=== PATIENT | female | born 1950 | race Caucasian/White ===

== ENCOUNTER → 2020-05-21 09:57 | Outpatient (CLI) | payer OTHER, SELFPAY ==
[2020-05-21 11:08] LABS: COVID19 -Nasal RAPID Negative (Negative)
== END ==
PROVIDERS: Visit Provider Physician Assistant
DX: Z20.822 Contact with and (suspected) exposure to COVID-19 (principal)
CPT/HCPCS: 87635

== ENCOUNTER 2020-05-23 06:08 | Day surgery (SDC) | payer OTHER, SELFPAY ==
[2020-05-23] VITALS (16 sets, daily range): BP systolic 89–127; BP diastolic 49–80; PULSE 53–83; RESP 10–16; TEMP 36.2–37.4; O2SAT 90–98; BMI 27.8
--- NOTE | 2020-05-23 06:00 | DI.RAD.S_ITS ---
PROCEDURE: XR KNEE RT 1TO2V INDICATIONS: post op films TECHNIQUE: 2 view(s) of the knee acquired. COMPARISON: None. FINDINGS: Bones: Patient is status post knee joint arthroplasty. Hardware components are in expected positions. Visualized bony structures are intact. Soft tissues: Overlying postoperative changes are noted. IMPRESSION: Expected postoperative appearance Dictated by: Bryson Sanchez M.D. on 05/23/2020 at 11:44 Approved by: Bryson Sanchez M.D. on 05/23/2020 at 11:45
[2020-05-23] MEDS: MELOXICAM 7.5 MG TABLET 15 MG PO (06:55)
[2020-05-23] MEDS: PREGABALIN 75 MG CAPSULE PO (06:56)
[2020-05-23] MEDS: ACETAMINOPHEN 325 MG TABLET 975 MG PO (06:56)
[2020-05-23] MEDS: LACTATED RINGERS 1,000 ML 42 ML IV ×2 (07:17→09:57)
--- NOTE | 2020-05-23 07:45 | PM.PREOP ---
Pre-operative Note COVID-19 COVID-19 status: Negative Result date/Date tested (Pos, Neg/Pending): 05/21/20 Interval Note History & Physical reviewed/Exam performed by Physician: Yes Changes to H&P: No H&P completed within 30 days and has changed as indicated here:: Plan for right TKA
[2020-05-23] MEDS: CEFAZOLIN 2 GM/100 ML FROZ.PIGGY IV ×3 (07:59→23:47)
[2020-05-23] MEDS: TRANEXAMIC ACID 1,000 MG VIAL 1000 MG INJ ×2 (08:09→09:55)
--- NOTE | 2020-05-23 08:25 | SUR.OPER ---
Supine on padded OR bed. Pillow under head, arms secured on padded armboards <90 degree abduction. Safety belt across torso. Non-operative leg secured with tape over blanket over lower leg. Operative leg positioned per Dr. Newamn on foam knee positioner . Foam padded brace at thigh of operative leg.
[2020-05-23] MEDS: ROPIVACAINE 0.5% PF 5 MG/ML 20ML VIAL 60 ML INJ (08:41)
[2020-05-23] MEDS: MORPHINE 4 MG/ML INJ INJ (08:41)
[2020-05-23] MEDS: KETOROLAC 30 MG/ML VIAL IV (08:41)
--- NOTE | 2020-05-23 10:03 | PM.OP.1 ---
Operative Date/Time/Diagnoses Date of procedure: 05/23/20 Time of procedure: 10:03 Pre-op diagnosis: right knee OA Post-op diagnosis: same Procedure & Clinicians Procedure: right TKA Same procedure as scheduled: Yes Indications: right knee OA resistant to further conservative care Surgeon: Vel Newman Electronic Field Service Engineer: Roman Ramirez Anesthesia Type: Spinal Operative Notes Findings: right knee OA with varus deformity Closure Type: primary Specimen(s): none sent Prosthetic devices, grafts, tissues, transplants, or devices: Prather [employer]hew Journey 2 size 5 right CR femur Size 3 right Journey tibial base plate Size 3-4 right 9 mm thick deep dish polyethylene 29 mm oval patella button Estimated Blood Loss (mL): 200 Tourniquet time (min): 70 Procedure in detail: Patient was met in the preoperative holding area where the site and side of surgery were marked by . Informed consent had been reviewed and signed in clinic but was also reviewed the preoperative holding area and all last minute questions were answered. Patient was then brought back in the operating room where she received a spinal anesthetic. She was then placed supine on the operating room bed. A nonsterile tourniquet was then placed on the right thigh and the right lower extremity was then prepped and draped normal sterile fashion. A surgical time-out was performed verifying surgery as well as the name of the patient. An Esmarch was then used to exsanguinate the right lower extremity and the tourniquet was inflated to 250 mm of mercury. A linear incision over the right knee was then made in the skin using 10. Blade. A new 10. Blade was then used to elevate medial and lateral flaps. Medial parapatellar arthrotomy was then marked and then a 10 blade was used to make the medial parapatellar arthrotomy. A large medial peel was then performed. Hoffa's fat pad was then removed as well as the lateral meniscus. Jewell's line was then marked. The ACL remnant was then removed. Drill was then used to enter the femoral canal on the tibial canal the intramedullary roni for the femur was then placed and the right-sided femoral jig was then placed. This was cut in the neutral slot. The intramedullary roni was then placed inside the tibial canal and a skim cut underneath the sclerotic bone on the medial side was then performed. This point the knee was brought into full extension the extension gap was then placed was noted to was significantly tight on the medial side and lateral side. A more extensive medial peel was then performed. This did not fully correct the imbalance. A reduction osteotomy was then performed on the medial tibial plateau. This corrected the imbalance. I then returned my attention to the femoral side he has a gap corporate real estate specialist to taj our rotation. This was then compared to Whitesides line and was externally rotated. I then used a sizing guide and sized to a size 5 or 6 on the femur. We initially pin for size 6 and cut and then felt like we could downsize to a size 5 which would have a better medial-lateral sizing with out significant overhang. Then downsized to a size 5 was able to cut the anterior femur without notching. The rest of the 5 in 1 cuts were then performed. A size 5 5 right CR trial was then placed and a saw was used to clear the notch. We then trialed with the size 3 tibia with a 9 mm CR. I used floating technique to taj my external rotation for the tibial component. Knee was able to get into full extension and full as having good flexion and there was stability in flexion and mid flexion and flexion. I then freehand cut the patella and sized to a size 29. This was then drilled for and a patellar button was placed. The knee was brought through range of motion without patellar liftoff. The bones were then removed local anesthetic was then infiltrated into back of the knee as well as the periarticular soft tissues. We then drilled and punched for the tibial base plate and I placed bone fragments within the canal to prevent extrusion of the cement down the tibial canal. I then placed the bone with the femur as well. Pulse lavage was then used to thoroughly irrigate the knee as well as the cut surface of the bone and the bony cut surfaces were thoroughly dried. Cement was mixed and cement was then finger packed into the keel hole as well as the tibial cut surface cement was placed on the backside of the tibial base plate and then this was placed. This was then malleted into place and excess cement was removed. Cement was then finger packed on the cut surfaces of the femur with exception of the posterior femoral cut cement was placed on the feet of the femoral component this was malleted into place and excess cement was removed. A trial 9 mm CR was then placed the knee was brought into full extension. Cement was then placed on the cut surface of the patella as well as between the pegs in the patellar button this was clamped in place and excess cement was removed. Betadine solution was then placed in the wound and tourniquet was let down. After several minutes the Betadine solution was lavaged with copious normal saline. Cement was allowed to fully cure. Hemostasis was then achieved using electrocautery thoroughly irrigated the knee looking for any bony fragments or cement fragments. I then placed a 9 mm thick size 3 for right deep dish polyethylene verifying that the medial lateral tabs were well engaged. The knee was then irrigated final time and the medial parapatellar arthrotomy was closed using 1. Vicryl in interrupted fashion followed by Quill running suture followed by 1. Vicryl in the fat layer and a running suture followed by 2 Vicryl in the subcutaneous layer followed by 3-0 Stratafix Dermabond and Aquacel dressing. Complications: none Post-operative Condition: stable Disposition: PACU Plan for aftercare: 24 hours post-op abx, WBAT RLE, ASA 81mg BID for DVT prophylaxis
[2020-05-23] MEDS: ONDANSETRON 4 MG/2 ML INJ IV ×2 (10:41→12:47)
[2020-05-23] MEDS: OXYCODONE IR 5 MG TABLET PO ×3 (10:41→21:46)
[2020-05-23] MEDS: LACTATED RINGERS 1,000 ML 100 ML IV (12:49)
--- NOTE | 2020-05-23 13:32 | PC.NURSE ---
Addendum entered by Ada Cedillo R.N. 05/23/20 14:35: Patient had 100cc of emesis most recently, she is sipping on a gingerale and visiting with her . Original Note: Assess- Patient has an aquacel dressing to her r.knee with eric wrap that is cdi. She denies pain but has had 2 emesis each 200cc of liquid. She is npo at this time until SET starts working for her nausea. She is on LR at 100cc/hr and tolerating well. in room, cms wnl and pt denies any numbness or tingling. She has feeling to r.knee and feet. Patient had a spinal and has an epideral site to lower back that is open to air and dry.
[2020-05-23 14:47] LABS: Add Manual Diff / Slide Review NO; Basophils Absolute Auto 0 /uL (0-100); Basophils Percent Auto 0.1 % (0-2); Eosinophils Absolute Auto 0 /uL (0-450); Hemoglobin 13.7 g/dL (12.0-16.0); Lymphocytes Absolute Auto 900 /uL (1100-4500); Lymphocytes Percent Auto 7.4 % (25-40); Mean Corpuscular HGB Conc 32.7 % (30-36); Mean Corpuscular Hemoglobin 28.2 PG (26-34); Mean Corpuscular Volume 86.2 fL (80-100); Monocytes Absolute Auto 200 /uL (0-900); Monocytes Percent Auto 1.8 % (3-14); Neutrophils Absolute Auto 10900 /uL (1500-7000); Neutrophils Percent Auto 90.7 % (50-75); Platelet Count 347 X10^3/uL (150-400); Red Blood Cell Count 4.87 X10^6/uL (4.0-5.2); Red Cell Distribution Width 14.2 % (11.6-14.8)
--- NOTE | 2020-05-23 14:50 | PT.IIE ---
Current Diagnoses Unilateral primary osteoarthritis, right knee (05/23/20) Surgery Performed Operation Date: 05/23/20 07:45 Actual Procedures p Total Knee Arthroplasty(Right) - Vel Newman MD Surgical History (Last Updated 05/21/20 @ 13:25 by Dagmar Reda, RN) History of arthroscopy of knee History of bilateral mastectomy (~2017) History of blepharoplasty (~2013) History of partial mastectomy of both breasts S/P tendon repair Medical History (Last Updated 05/21/20 @ 13:25 by Dagmar Read, RN) History of breast cancer Prehypertension Primary osteoarthritis of hands, bilateral Primary osteoarthritis of knees, bilateral Wrist fracture, left Physical Therapy Inpatient Evaluation/Re-Eval M1 PT/OT-IP Prior Functional Status Start: 05/23/20 15:44 Freq: NEEDED Status: Active Protocol: Document 05/23/20 14:50 AB (Rec: 05/23/20 15:59 AB [id number]) Medical Review Prior Functional Status Medical History Reviewed Yes Communication able to make needs known Mobility and Gait pt stated that she is independent with all mobilities and ambulation without AD indoors but uses a walking stick for outdoor mobility Social History Household Members spouse Living Arrangements House Number of Floors (Floors) One Floor Number of Stairs To Enter/Railing? no steps to enter Home Environment High Toilet,Walk in Shower,Tub /Shower,Built-In Shower Seat Home Equipment Front Wheel Walker,Hand Held Shower,Grab Bars Near Toilet, Grab Bars In Shower M2 PT-IP Current Condition Start: 05/23/20 15:44 Freq: NEEDED Status: Active Protocol: Document 05/23/20 14:50 AB (Rec: 05/23/20 15:59 AB [id number]) Physical Therapy Current Condition Current Condition Evaluation Date 05/23/20 Treatment Diagnosis s/p R TKA; difficulty in walking Onset Date 05/23/20 Weight Bearing Status Weight Bearing Status Weight Bear as Tolerated Allowed Weight Bearing Amount (enter % RLE WBAT or #) (%) M3 PT-IP Subjective Start: 05/23/20 15:44 Freq: NEEDED Status: Active Protocol: Document 05/23/20 14:50 AB (Rec: 05/23/20 15:59 AB [id number]) Subjective Physical Therapy Visit Type Type Initial Evaluation Visit Start Time 14:50 Visit Stop Time 15:30 Total Visit Minutes 40 Number of HANDWRITING EXPERT Visits 0 Physical Therapy Visit Comments Patient Comments c/o nausea Therapy Pain Assessment Pain When Pain Assessed At Rest Pain Present Pain Present Pain Reported Location Right Knee Intensity 4 Scale Used Numeric (0 - 10) Pain Management Techniques Apply Cold,Distraction, Modification of Treatment,Re- positioning,Timing of Activity with Medications M4 PT-IP Mobility and Gait Start: 05/23/20 15:44 Freq: NEEDED Status: Active Protocol: Document 05/23/20 14:50 AB (Rec: 05/23/20 15:59 AB [id number]) PT-Bed Mobility Assessment Supine to Sit Supine to Sit Standby Assistance PT-Transfer Assessment Sit to and From Stand Sit to and from Stand Contact Guard Assistance, Minimal Assistance,1 Person Assistance,Use of Upper Extremities Equipment Transfer Assistive Device Gait Belt,Front Wheeled Walker Orthotic/Prosthetic Devices or Brace: No Transfers Transfer Destination Toilet Transfer Technique ambulated using FWW Transfer Ability Level of Assist Contact Guard Assistance, Minimal Assistance,1 Person Assistance,Use of Upper Extremities Comments Mobility Comments BP in supine: 119/75. pt initially did not have O2 on when PT checked. O2 sat on room air 77%. pt stated that she took it off. put O2 back on and pt is at 1.5L/min. O2 sat increase to 97% after a few seconds. completed heel slides prior to mobility. completed supine to sit SBA. c/o lightheadedness and nausea . BP in sitting position: 144 /92. completed sit to stand CGA to min A and cues and ambulated to the toilet using FWW initially with min A. completed sit to stand from the toilet min A and ambulated to the chair CGA. pt agreed to sit up on chair. positioned on chair. BP checked: 135/67. call light and table placed within reach. ice pack provided. informed NAC regarding level of assistance. Gait Assessment Gait Gait Assistance Required: Contact Guard Assist,Minimum Assistance Distance (Feet) 10 Able to Maintain Weight Bearing Status Yes During Gait Assistive Devices Assistive Device Gait Belt,Front Wheeled Walker Orthotic/Prosthetic Devices or Brace: No Gait Deviations General Gait Pattern Antalgic,Decreased Stride Length,Decreased Feet Clearance Factors Limiting Gait Function Factors Limiting Gait Function Decreased Activity Tolerance, Decreased Strength,Limited Range of Motion,Pain,Poor Balance,Poor Safety Awareness, Respiratory Distress Comments Gait Comments refer to mobility section for details PT-Balance Assessment Sitting Balance and Reactions Static Sitting Balance Ability Good Dynamic Sitting Balance Ability Good Standing Balance and Reactions Static Standing Balance Ability Fair Dynamic Standing Balance Ability Fair Device Used FWW M5 PT-IP Objective Assessments Start: 05/23/20 15:44 Freq: NEEDED Status: Active Protocol: Document 05/23/20 14:50 AB (Rec: 05/23/20 15:59 AB [id number]) Orientation Orientation/Cognition Level of Alertness Alert Orientation Name,Place,Situation Language Function Ability Hard of Hearing Safety Awareness Decreased Safety Awareness Gross Range of Motion Lower Extremity ROM Assessment Right Impaired Impairments R knee flexion: ~60 deg Strength Lower Extremity Strength Assessment Right Impaired Hip 4-/5 Knee 3+/5 Coordination Assessment Gross Coordination Gross Coordination WNL Sensation Assessment Sensation Gross Sensation WNL Muscle Tone Muscle Tone WNL Yes M6 PT-IP Treatment Start: 05/23/20 15:44 Freq: NEEDED Status: Active Protocol: Document 05/23/20 14:50 AB (Rec: 05/23/20 15:59 AB [id number]) Physical Therapy Treatment Education Education Provided Precautions,Weight Bearing Status,Post-Op Packet,Safety M7 PT-IP Assessment and Plan Start: 05/23/20 15:44 Freq: NEEDED Status: Active Protocol: Document 05/23/20 14:50 AB (Rec: 05/23/20 15:59 AB [id number]) PT Summary Assessment and Plan Potential Rehabilitation Potential Good Status of Condition at Evaluation Evolving Summary Impairments Pain,ROM,Strength,Balance, Coordination,Sensation,Bed Mobility,Transfers,Gait, Activity Tolerance Assessment Summary pt requiring CGA to min A with mobility and plans to go home with spouse to assist her. will conduct caregiver training when appropriate but pt will likely progress during hospital stay. will continue to assess progress. Goals Bed Mobility Goal Independent Transfer Goal Independent,Front Wheeled Walker Gait Goal Independent,Front Wheel Walker Gait Distance 150 Days to Meet Goals 3 Frequency of Treatment Frequency Of Treatment Twice a Day Treatment Plan Physical Therapy Treatment Plan Bed Mobility Training,Transfer Training,Gait Training, Therapeutic Exercise,Balance Retraining,Post Op Education, Discharge Planning,Hot or Cold Pack,Neuromuscular Re-ed, Coordination Retraining,Manual Therapy Recommendations To Nursing Amount of Assist Needed 1 Person Assist Discharge Recommendations PT Discharge Recommendations Home with Assistance, Outpatient PT Transportation Needs at Discharge Private Vehicle
[2020-05-23] MEDS: METOCLOPRAMIDE 10 MG/2 ML INJ 5 MG IV (15:31)
[2020-05-23] MEDS: LORATADINE 10 MG TABLET PO (18:39)
[2020-05-23] MEDS: GABAPENTIN 300 MG CAPSULE PO (21:43)
[2020-05-23] MEDS: DOCUSATE 100 MG CAPSULE PO (21:43)
[2020-05-23] MEDS: ACETAMINOPHEN 325 MG TABLET 650 MG PO (21:43)
[2020-05-23] MEDS: ASPIRIN EC 81 MG TABLET PO (21:44)
--- NOTE | 2020-05-24 00:05 | PC.NURSE ---
Addendum entered by Indu Hawk R.N. 05/24/20 05:48: Up to bathroom with walker and 1 assist. After being up to bathroom states pain went from 0/10 to 6/10; medicated with Oxycodone. Given I.S. and instructed in use; patient able to get to 1500 Addendum entered by Indu Hawk R.N. 05/24/20 02:27: Complaining of 6/10 right knee pain; medicated with Oxycodone. Original Note: patient is alert and oriented. Breath sounds diminished but CTA with sat of 94% on oxygen at 1L/min per NC; reportedly desats when asleep so will O2 on for now. HRR. Denies nausea. BT hypoactive but states she has passed flatus. Denies dysuria with urination. Able to move self in bed. Up earlier with walker and 1 assist but is weak on right LE. Aquacel dressing covered with eric wrap is CDI. States pain is 4/10 and tolerable; has ice to knee. Does have some tingling in right foot and decreased ROM in right LE otherwise CMS is intact. Wearing bilateral calf SCD's. Fall risk score is moderate and bed alarm is activated.
[2020-05-24] MEDS: OXYCODONE IR 5 MG TABLET PO ×4 (02:25→11:34)
[2020-05-24 05:30] VITALS: BP 124/76; PULSE 79; RESP 16; TEMP 37.3; O2SAT 99
[2020-05-24 06:53] LABS: Hematocrit 36.2 % (36-46); Hemoglobin 11.9 g/dL (12.0-16.0)
[2020-05-24 07:45] VITALS: BP 113/66; PULSE 88; RESP 16; TEMP 37.4; O2SAT 97
[2020-05-24] MEDS: ASPIRIN EC 81 MG TABLET PO (08:20)
[2020-05-24] MEDS: ACETAMINOPHEN 325 MG TABLET 650 MG PO (08:20)
[2020-05-24] MEDS: GABAPENTIN 300 MG CAPSULE PO (08:21)
[2020-05-24] MEDS: TRIAMTERENE/HCTZ 37.5/25 TABLET 1 CAP PO (08:21)
[2020-05-24] MEDS: DOCUSATE 100 MG CAPSULE PO (08:21)
--- NOTE | 2020-05-24 09:39 | P.PN_ITS ---
Subjective Subjective Date Patient Seen: 05/24/20 Time Patient Seen: 09:39 Interval history: POD #1 s/p right TKA with Dr. Newman. Patient's pain is well controlled with Oxycodone. She has not been up with PT yet. No complaints this AM. Exam Vital Signs (past 8 hours): - 05/24/20 05:30 05/24/20 07:45 Temperature 99.1 F 99.4 F Pulse Rate 79 88 Respiratory Rate 16 16 Blood Pressure 124/76 113/66 Pulse Oximetry 99 97 Oxygen Delivery Method Room Air Oxygen Flow Rate 1 Narrative Exam Narrative: Patient sitting up in bed in NAD. She is alert and oriented X3. Calves are soft, compressible, and nontender bilaterally. SILT throughout BLEs. She is able to actively dorisflex and plantarflex. DP 2+. Dressing on right knee is CDI. SCDs on and functioning. Objective Labs Result Diagrams: 05/24/20 06:31 Labs: Laboratory Results - last 24 hr 05/23/20 05/24/20 14:25 06:31 WBC 12.0 H RBC 4.87 Hgb 13.7 11.9 L Hct 42.0 36.2 MCV 86.2 MCH 28.2 MCHC 32.7 RDW 14.2 Plt Count 347 Neut % (Auto) 90.7 H Lymph % (Auto) 7.4 L Reeves % (Auto) 1.8 L Eos % (Auto) 0.0 L Baso % (Auto) 0.1 Neut # (Auto) 95841 H Lymph # (Auto) 900 L Reeves # (Auto) 200 Eos # (Auto) 0 Baso # (Auto) 0 PFSH Medical History History of breast cancer Prehypertension Primary osteoarthritis of hands, bilateral Primary osteoarthritis of knees, bilateral Wrist fracture, left Surgical History History of arthroscopy of knee History of bilateral mastectomy (~2017) History of blepharoplasty (~2013) History of partial mastectomy of both breasts S/P tendon repair Social History household members: spouse Smoking Status: Former smoker alcohol intake: current Assessment & Plan Post-op Postoperative Procedures: Procedures Operation Date: 05/23/20 07:45 Actual Procedures Side Surgeon p Total Knee Arthroplasty Right Vel Newman MD Patient will mobilize with PT today. Continue current pain control. Continue ASA for VTE prophylaxis. Patient will likely DC home today after therapy.
--- NOTE | 2020-05-24 10:46 | CM.DANOTE ---
This patient is a rachelle 70 yo pt. of [facility] here for RTK. She was sitting up in bed after finishing breakfast. A&O x 4. Pt. very much looking forward to going home today. C/O mild knee pain with ambulation but is still able to ambulate well enough to get around. Caregiver training is scheduled this morning per PT and patient is hoping to be discharged after lunch to care of . No barriers anticipated at discharge.
--- NOTE | 2020-05-24 11:48 | PT.IPTN ---
Current Diagnoses Unilateral primary osteoarthritis, right knee (05/23/20) Surgery Performed Operation Date: 05/23/20 07:45 Actual Procedures p Total Knee Arthroplasty(Right) - Vel Newman MD Physical Therapy Treatment Note M2 PT-IP Current Condition Start: 05/23/20 15:44 Freq: NEEDED Status: Active Protocol: Document 05/23/20 14:50 AB (Rec: 05/23/20 15:59 AB [id number]) Physical Therapy Current Condition Current Condition Evaluation Date 05/23/20 Treatment Diagnosis s/p R TKA; difficulty in walking Onset Date 05/23/20 Weight Bearing Status Weight Bearing Status Weight Bear as Tolerated Allowed Weight Bearing Amount (enter % RLE WBAT or #) (%) M3 PT-IP Subjective Start: 05/23/20 15:44 Freq: NEEDED Status: Active Protocol: Document 05/24/20 11:29 KS (Rec: 05/24/20 13:57 KS [id number]) Subjective Physical Therapy Visit Type Type Treatment Note Visit Start Time 11:29 Visit Stop Time 11:48 Total Visit Minutes 19 Number of CRYSTAL SYR[employer] Visits 1 Physical Therapy Visit Comments Patient Comments Pts present during treatment. Therapy Pain Assessment Pain When Pain Assessed After Treatment Pain Present Pain Present Pain Reported Location Right Knee Intensity 7 Scale Used Numeric (0 - 10) Pain Management Techniques Apply Cold,Elevation, Modification of Treatment,Re- positioning M4 PT-IP Mobility and Gait Start: 05/23/20 15:44 Freq: NEEDED Status: Active Protocol: Document 05/24/20 11:29 KS (Rec: 05/24/20 13:57 KS [id number]) PT-Bed Mobility Assessment Supine to Sit Supine to Sit Standby Assistance Sit to Supine Sit to Supine Standby Assistance Scooting Scooting to Edge of Bed Standby Assistance Scooting Up and Down in Bed Standby Assistance PT-Transfer Assessment Sit to and From Stand Sit to and from Stand Standby Assistance,Use of Upper Extremities Equipment Transfer Assistive Device Gait Belt,Front Wheeled Walker Orthotic/Prosthetic Devices or Brace: No Transfers Transfer Destination Bed Transfer Technique ambulated using FWW Transfer Ability Level of Assist Standby Assistance Comments Mobility Comments Pt in bed upon arrival from therapy. SBA for sup<>sit and scooting EOB w/ HOB flat. Pt then sit<>stand w/ FWW SBA w/ cues for hand placement. Pt then ambulated ~30 ft in room w/ FWW, O2 >85% but patient denied SOB. Pt then returned to bed, O2 increased to 94% on RA. RN notified. SBA for sit< >supine and repositioning in bed. Reveiwed LE strengthening exercises, pt confirmed no stairs and begins outpatient rehab on Jun 04. Gait Assessment Gait Gait Assistance Required: Standby Assistance,1 Person Assist Distance (Feet) 30 Able to Maintain Weight Bearing Status Yes During Gait Assistive Devices Assistive Device Gait Belt,Front Wheeled Walker Orthotic/Prosthetic Devices or Brace: No Gait Deviations General Gait Pattern Antalgic,Decreased Stride Length,Decreased Feet Clearance Factors Limiting Gait Function Factors Limiting Gait Function Decreased Activity Tolerance, Decreased Strength,Limited Range of Motion,Pain,Poor Balance,Poor Safety Awareness, Respiratory Distress Comments Gait Comments Pt ambulated ~30 ft w/ 1x rest break, O2 >85%, pt denied SOB , RN notified. Stair Climbing Assessment Comments Stair Climbing Comments no stairs at home PT-Balance Assessment Sitting Balance and Reactions Static Sitting Balance Ability Good Dynamic Sitting Balance Ability Good Standing Balance and Reactions Static Standing Balance Ability Fair Dynamic Standing Balance Ability Fair Device Used FWW M5 PT-IP Objective Assessments Start: 05/23/20 15:44 Freq: NEEDED Status: Active Protocol: Document 05/23/20 14:50 AB (Rec: 05/23/20 15:59 AB [id number]) Orientation Orientation/Cognition Level of Alertness Alert Orientation Name,Place,Situation Language Function Ability Hard of Hearing Safety Awareness Decreased Safety Awareness Gross Range of Motion Lower Extremity ROM Assessment Right Impaired Impairments R knee flexion: ~60 deg Strength Lower Extremity Strength Assessment Right Impaired Hip 4-/5 Knee 3+/5 Coordination Assessment Gross Coordination Gross Coordination WNL Sensation Assessment Sensation Gross Sensation WNL Muscle Tone Muscle Tone WNL Yes M6 PT-IP Treatment Start: 05/23/20 15:44 Freq: NEEDED Status: Active Protocol: Document 05/24/20 11:29 KS (Rec: 05/24/20 13:57 KS [id number]) Physical Therapy Treatment Exercises Exercises Ankle Pumps,Gluteal Sets,Quad Sets,Heel Slides Education Education Provided Precautions,Weight Bearing Status,Post-Op Packet,Safety Other Treatments Other Treatment Performed Encouraged pt to complete exercises at home, walk frequently to improve O2 and gait. M7 PT-IP Assessment and Plan Start: 05/23/20 15:44 Freq: NEEDED Status: Active Protocol: Document 05/24/20 11:29 KS (Rec: 05/24/20 13:57 KS [id number]) PT Summary Assessment and Plan Potential Rehabilitation Potential Good Status of Condition at Evaluation Evolving Summary Impairments Pain,ROM,Strength,Balance, Coordination,Sensation,Bed Mobility,Transfers,Gait, Activity Tolerance Progress Towards Goals Progressing Toward Goals Assessment Summary Pt SBA for bed mobility, transfers, and ambulation. Pt ambulated ~30 ft around room w / SBA and FWW on RA w/ O2 >85% . O2 increased to 94% in sitting. RN notified. Pt will benefit from outpatient rehab to improve strenght, ROM, and tolerance for activity which she has set to begin on Jun 04. Goals Bed Mobility Goal Independent Transfer Goal Independent,Front Wheeled Walker Gait Goal Independent,Front Wheel Walker Gait Distance 150 Days to Meet Goals 3 Frequency of Treatment Frequency Of Treatment Twice a Day Treatment Plan Physical Therapy Treatment Plan Bed Mobility Training,Transfer Training,Gait Training, Therapeutic Exercise,Balance Retraining,Post Op Education, Discharge Planning,Hot or Cold Pack,Neuromuscular Re-ed, Coordination Retraining,Manual Therapy Recommendations To Nursing Amount of Assist Needed 1 Person Assist Discharge Recommendations PT Discharge Recommendations Home with Assistance, Outpatient PT Transportation Needs at Discharge Private Vehicle
--- NOTE | 2020-05-24 12:15 | PC.NURSE ---
c/m/s to RLE Positive; CRYSTAL wrap intact; SBA to bathroom with fww O2 RA=95%, per PT, patient desat to upper 80's with activity; pt encouraged to keep using IS, cough/deep breath; pain mild to moderate; d/c instructions for f/u appt, rx medications, s/sx infection, and IS
== END 2020-05-24 13:00 | disposition home or self-care (01) ==
LOC: OR 06:13 → AC 06:16
PROVIDERS: PCP Family Medicine; Referring Provider Family Medicine; Visit Provider Orthopaedic Surgery Adult Reconstructive Orthopaedic Surgery
PROC: 0SRC0JZ Replacement of Right Knee Joint with Synthetic Substitute, Open Approach (ICD-10-PCS; CPT 27447; principal; 2020-05-23 07:45)
DX: M17.11 Unilateral primary osteoarthritis, right knee (principal); I10 Essential (primary) hypertension; M85.80 Other specified disorders of bone density and structure, unspecified site
CPT/HCPCS: 27447; 36415; 73560; 85014; 85018; 85025; 94760; 97161; 97530; C1776; J0690; J1100; J1885; J2270; J2274; J2405; J2704; J2765

== ENCOUNTER 2020-06-04 16:34 | Inpatient (IN) | payer OTHER, SELFPAY ==
[2020-05-23 12:51] VITALS: BMI 27.8
[2020-06-04] VITALS (19 sets, daily range): BP systolic 102–142; BP diastolic 56–72; PULSE 78–92; RESP 11–32; TEMP 36.5–37.5; O2SAT 94–100; BMI 28.3
--- NOTE | 2020-06-04 16:44 | DI.RAD.S_ITS ---
PROCEDURE: XR CHEST 1V INDICATIONS: Chest pain TECHNIQUE: One view of the chest was acquired. COMPARISON: None. FINDINGS: Surgical changes and devices: Bilateral breast surgical clips. Lungs and pleura: Lungs are clear. No pleural effusions or pneumothorax. Mediastinum: Mediastinal contours appear normal. Heart size is normal. Bones and chest wall: No suspicious bony lesions. Overlying soft tissues appear unremarkable. IMPRESSION: No acute cardiopulmonary process demonstrated radiographically. Dictated by: Pete Salazar M.D. on 06/04/2020 at 16:15 Approved by: Pete Salazar M.D. on 06/04/2020 at 16:15
[2020-06-04 17:07] LABS: Mean Corpuscular HGB Conc 32.8 % (30-36); Mean Corpuscular Hemoglobin 28.2 PG (26-34); Platelet Count 583 X10^3/uL (150-400); Red Cell Distribution Width 15.1 % (11.6-14.8); White Blood Cell Count 14.2 X10^3/uL (4.5-11.0)
--- NOTE | 2020-06-04 17:09 | PC.NURSE ---
Pt is 10 days post op right knee replacement, states chest tightness and dizziness upon standing X 4 days. Suture site right knee is well aproximated and without erythema or discharge. Pt also reports right calf and right foot pain.
[2020-06-04 17:11] LABS: Prothrombin Time 11.8 SECONDS (10.1-12.7)
[2020-06-04 17:13] LABS: Add Manual Diff / Slide Review NO; Basophils Absolute Auto 100 /uL (0-100); Basophils Percent Auto 0.7 % (0-2); Eosinophils Absolute Auto 200 /uL (0-450); Eosinophils Percent Auto 1.5 % (2-4); Lymphocytes Absolute Auto 1700 /uL (1100-4500); Lymphocytes Percent Auto 11.8 % (25-40); Monocytes Absolute Auto 800 /uL (0-900); Monocytes Percent Auto 5.8 % (3-14); Neutrophils Absolute Auto 11300 /uL (1500-7000); Neutrophils Percent Auto 80.2 % (50-75)
[2020-06-04 17:14] LABS: PTT Partial Thromboplastin Tim 29 SECONDS (26.4-36.2)
[2020-06-04 17:16] LABS: Alanine Aminotransferase 46 IU/L (<35); Albumin 3.5 g/dL (3.5-5.0); Albumin Globulin Ratio 1.3 (1.0-2.8); Alkaline Phosphatase 120 U/L (38-126); Aspartate Aminotransferase 29 IU/L (14-36); BUN Creatinine Ratio 36.1 (6-22); Bilirubin Total 0.2 mg/dL (0.2-1.3); Blood Urea Nitrogen 26 mg/dL (7-17); Calcium 9.1 mg/dL (8.4-10.2); Carbon Dioxide 29 mmol/L (22-32); Chloride 95 mmol/L (98-107); Creatine Kinase 25 U/L (30-135); Estimated Glomerular Filt Rate > 60.0 mL/min (>60); Globulin 2.6 g/dL (1.7-4.1); Glucose 149 mg/dL (80-110); HEMOLYSIS < 15 (0-50); Hematocrit 19.8 % (36-46); Hemoglobin 6.5 g/dL (12.0-16.0); Lipase 49 U/L (23-300); Potassium 3.5 mmol/L (3.4-5.1); Sodium 128 mmol/L (137-145); Total Protein 6.1 g/dL (6.3-8.2)
[2020-06-04 17:28] LABS: NT-proBNP (BNP-Adult 18+) 496 pg/mL (<125); Troponin I < 0.012 ng/mL (0.01-0.034)
--- NOTE | 2020-06-04 17:36 | ED.CHESTPAIN ---
HPI - Chest Pain General Chief Complaint: Chest Pain Stated Complaint: RIGHT KNEE PAIN CHEST TIGHTNESS DIZZY NAUSEA Time Seen by Provider: 06/04/20 17:36 Source: patient Mode of arrival: Ambulatory Limitations: no limitations History of Present Illness HPI narrative: 70-year-old female who 10 days ago had a right total knee replacement. Does have a prior history of breast cancer. Had bilateral mastectomy and did not receive any chemotherapy afterwards. She is here for evaluation of knee pain, chest tightness, dizzy and some nausea. She does have right lower extremity swelling but she thinks that this is improving. Does have bruising around the right knee. Has had some dark colored stools. Has been taking all of her postoperative medications. Related Data Home Medications Medication Instructions Recorded Confirmed acetaminophen 1,300 mg PO Q8H 05/21/20 05/23/20 biotin 2,500 mcg PO BID 05/21/20 05/23/20 calcium 600 mg PO BID 05/21/20 05/23/20 cholecalciferol (vitamin D3) 25 mcg PO DAILY 05/21/20 05/23/20 [Vitamin D3] diclofenac sodium [Voltaren] g TOPICAL QID 05/21/20 fexofenadine 180 mg PO QPM 05/21/20 05/23/20 gabapentin 300 mg PO 1-2XD 05/21/20 05/23/20 multivitamin 1 tab PO DAILY 05/21/20 05/23/20 triamterene-hydrochlorothiazid 1 - 2 cap PO DAILY 05/21/20 05/23/20 Previous Rx's Medication Instructions Recorded aspirin 81 mg PO BID #20 tab 05/24/20 docusate sodium [DOK] 100 mg PO BID #20 cap 05/24/20 ibuprofen [Advil] 400 mg PO Q4HR #0 tab 05/24/20 Allergies Allergy/AdvReac Type Severity Reaction Status Date / Time Sulfa (Sulfonamide Allergy Severe Tongue Verified 05/23/20 06:48 Antibiotics) swelling latex Allergy Mild Rash, Verified 05/23/20 06:48 bland skin succinylcholine AdvReac Severe Muscle Verified 05/23/20 06:48 spams for 2 days Review of Systems Constitutional Constitutional: Denies fever(s) and Denies headache(s) ENT Ears, Nose, Mouth, and Throat: Denies vertigo, Reports dizziness and Denies headache(s) Cardiovascular Cardiovascular: Reports chest pain, Reports lightheadedness and Reports dyspnea Respiratory Respiratory: Reports dyspnea Gastrointestinal Gastrointestinal: Denies abdominal pain, Denies nausea and Denies vomiting Comments: Dark colored stool Genitourinary Genitourinary: Denies dysuria Genitourinary: Denies dysuria Musculoskeletal Musculoskeletal: Reports arthralgias (Right knee pain) and Denies myalgias Integumentary/Breasts Skin/Breast: Denies lesions and Denies rash Neurologic Neurologic: Denies vertigo, Reports dizziness and Denies headache(s) Hematologic/Lymphatic On Anticoagulants: No Patient History Medical History History of breast cancer Prehypertension Primary osteoarthritis of hands, bilateral Primary osteoarthritis of knees, bilateral Wrist fracture, left Surgical History History of arthroscopy of knee History of bilateral mastectomy (~2017) History of blepharoplasty (~2013) History of partial mastectomy of both breasts S/P tendon repair Social History household members: spouse Smoking Status: Former smoker alcohol intake: current Smoking Status: Former smoker alcohol intake frequency: a few times a week Substance Use Type: does not use Exam Initial Vital Signs Initial Vital Signs: Vital Signs Temperature 98.7 F 06/04/20 16:37 Pulse Rate 87 06/04/20 16:37 Respiratory Rate 20 06/04/20 16:37 Blood Pressure 125/64 06/04/20 16:37 Pulse Oximetry 100 06/04/20 16:37 Const General: cooperative, comfortable, well developed and well groomed Limitations: mental status not altered [facility] Head: normal to inspection and normocephalic Resp Effort & Inspection: normal respiratory effort and tachypneic Auscultation: clear to auscultation bilaterally Cardio Rate: regular rate GI Inspection: non-distended Palpation: soft and No firm Rectal Exam: heme positive stool Skin Other: Surgical scar right knee consistent with stated history with some surrounding bruising. Neuro General: patient alert and patient awake Cognition: normal cognition Speech: speech normal Extrem General: normal to inspection and capillary refill normal Psych Appearance: grossly normal and well kempt Scores GCS Barco coma scale eye opening: Spontaneous Shashi coma scale verbal response: Orientated Barco coma scale motor response: Obey commands Shashi coma scale total score: 15 Course Orders Ordered: ED Orders 06/04/20 16:44 XR chest 1V Stat EKG-12 Lead Stat 06/04/20 16:56 BNP [NT-proBNP (BNP-Adult 18+)] Stat Complete Blood Count AUTO DIFF Stat Comprehensive Metabolic Panel Stat Lipase Stat Partial Thromboplastin Time Stat Prothrombin Time INR Stat Troponin & CK Cardiac Panel Stat 06/04/20 17:19 COVID19 Stat 06/04/20 17:35 Packed Cells Stat Type and Screen Stat 06/04/20 17:37 CT angio chest PE protocol Stat 06/04/20 19:24 Consult to General Surgery Stat Vital Signs Vital signs: Vital Signs - 8 hr 06/04/20 16:37 06/04/20 16:46 06/04/20 17:00 Temperature 98.7 F Pulse Rate 87 89 83 Respiratory Rate 20 21 Blood Pressure 125/64 142/64 H 134/61 Pulse Oximetry 100 100 98 06/04/20 17:15 06/04/20 17:30 06/04/20 17:45 Temperature Pulse Rate 82 87 82 Respiratory Rate 13 32 H 22 Blood Pressure 132/67 Pulse Oximetry 100 100 100 06/04/20 18:00 06/04/20 18:20 06/04/20 19:00 Temperature 99.5 F Pulse Rate 79 92 H 91 H Respiratory Rate 11 L 29 H 16 Blood Pressure 126/63 133/67 Pulse Oximetry 97 97 06/04/20 19:10 Temperature 98.6 F Pulse Rate 88 Respiratory Rate 14 Blood Pressure 138/68 Pulse Oximetry MDM - Chest Pain Lab Data Attestation: I reviewed the patient's lab results. Result diagrams: 06/04/20 16:56 06/04/20 16:56 Labs: Lab Results 06/04/20 06/04/20 06/04/20 Range/Units 16:56 16:56 16:56 WBC 14.2 H (4.5-11.0) X10^3/uL RBC 2.30 L (4.0-5.2) X10^6/uL Hgb 6.5 L* (12.0-16.0) g/dL Hct 19.8 L* (36-46) % MCV 86.0 (80-100) fL MCH 28.2 (26-34) PG MCHC 32.8 (30-36) % RDW 15.1 H (11.6-14.8) % Plt Count 583 H (150-400) X10^3/uL Neut % (Auto) 80.2 H (50-75) % Lymph % (Auto) 11.8 L (25-40) % Barrow % (Auto) 5.8 (3-14) % Eos % (Auto) 1.5 L (2-4) % Baso % (Auto) 0.7 (0-2) % Neut # (Auto) 80628 H (5556-5019) /uL Lymph # (Auto) 1700 (2982-7473) /uL Barrow # (Auto) 800 (0-900) /uL Eos # (Auto) 200 (0-450) /uL Baso # (Auto) 100 (0-100) /uL PT 11.8 (10.1-12.7) SECONDS INR 1.0 (0.9-1.3) APTT 29 (26.4-36.2) SECONDS Sodium 128 L (137-145) mmol/L Potassium 3.5 (3.4-5.1) mmol/L Chloride 95 L (98-107) mmol/L Carbon Dioxide 29 (22-32) mmol/L BUN 26 H (7-17) mg/dL Creatinine 0.72 (0.52-1.04) mg/dL Estimated GFR > 60.0 (>60) mL/min BUN/Creatinine Ratio 36.1 H (6-22) Glucose 149 H (80-110) mg/dL Calcium 9.1 (8.4-10.2) mg/dL Total Bilirubin 0.2 (0.2-1.3) mg/dL AST 29 (14-36) IU/L ALT 46 H (<35) IU/L Alkaline Phosphatase 120 (38-126) U/L Total Creatine Kinase 25 L (30-135) U/L CK-MB (CK-2) TNP CK-MB (CK-2) Rel Index TNP Troponin I < 0.012 (0.01-0.034) ng/mL NT-Pro-B Natriuret Pep 496 H (<125) pg/mL Total Protein 6.1 L (6.3-8.2) g/dL Albumin 3.5 (3.5-5.0) g/dL Globulin 2.6 (1.7-4.1) g/dL Albumin/Globulin Ratio 1.3 (1.0-2.8) Lipase 49 (23-300) U/L SARS-CoV-2 (PCR) (Negative) Blood Type Antibody Screen Crossmatch 06/04/20 06/04/20 Range/Units 17:19 17:35 WBC (4.5-11.0) X10^3/uL RBC (4.0-5.2) X10^6/uL Hgb (12.0-16.0) g/dL Hct (36-46) % MCV (80-100) fL MCH (26-34) PG MCHC (30-36) % RDW (11.6-14.8) % Plt Count (150-400) X10^3/uL Neut % (Auto) (50-75) % Lymph % (Auto) (25-40) % Barrow % (Auto) (3-14) % Eos % (Auto) (2-4) % Baso % (Auto) (0-2) % Neut # (Auto) (1731-2488) /uL Lymph # (Auto) (6953-9719) /uL Barrow # (Auto) (0-900) /uL Eos # (Auto) (0-450) /uL Baso # (Auto) (0-100) /uL PT (10.1-12.7) SECONDS INR (0.9-1.3) APTT (26.4-36.2) SECONDS Sodium (137-145) mmol/L Potassium (3.4-5.1) mmol/L Chloride (98-107) mmol/L Carbon Dioxide (22-32) mmol/L BUN (7-17) mg/dL Creatinine (0.52-1.04) mg/dL Estimated GFR (>60) mL/min BUN/Creatinine Ratio (6-22) Glucose (80-110) mg/dL Calcium (8.4-10.2) mg/dL Total Bilirubin (0.2-1.3) mg/dL AST (14-36) IU/L ALT (<35) IU/L Alkaline Phosphatase (38-126) U/L Total Creatine Kinase (30-135) U/L CK-MB (CK-2) CK-MB (CK-2) Rel Index Troponin I (0.01-0.034) ng/mL NT-Pro-B Natriuret Pep (<125) pg/mL Total Protein (6.3-8.2) g/dL Albumin (3.5-5.0) g/dL Globulin (1.7-4.1) g/dL Albumin/Globulin Ratio (1.0-2.8) Lipase (23-300) U/L SARS-CoV-2 (PCR) Negative (Negative) Blood Type A Positive Antibody Screen Negative Crossmatch See Detail Imaging Data CT scan - chest: Radiologist's Impression: [address] [id number] Scan ReportSigned Patient: Brooke VincentMR#: [id number]: 8Acct:[id number]/Sex: 70 / FDate of Service: 06/04/20Loc: EDAccession Number: [id number] Procedure: CT angio chest PE protocol Ordering Provider: Blaise Sparrow D.O. PROCEDURE: CT ANGIO CHEST PE PROTOCOL INDICATIONS: Chest pain, shortness of breath, tachycardia TECHNIQUE: After the administration of intravenous contrast, 2 mm thick sections acquired from the pulmonary apices to the posterior costophrenic angles. 3-dimensional maximum intensity projection (MIP) coronal and sagittal reformats were then acquired through the thorax. For radiation dose reduction, the following was used: automated exposure control, adjustment of mA and/or kV according to patient size. COMPARISON: None. FINDINGS: Image quality: Excellent. Pulmonary arteries: Pulmonary arteries are normal in size, and demonstrate no intraluminal filling defects to suggest central pulmonary embolism. Lungs and pleura: Lungs are clear. No pleural effusions or pneumothorax. Central and peripheral airways are patent. Mediastinum: Heart size is normal, without pericardial effusion. No mediastinal or hilar adenopathy. Thoracic aorta is normal in caliber and enhancement. Esophagus is normal in caliber, without hiatal hernia. Bones and chest wall: No suspicious bony lesions. Ribs and thoracic spine appear intact throughout. Thyroid gland is normal. No axillary or supraclavicular adenopathy. Abdomen: Visualized upper abdominal solid organs appear normal in the early arterial phase of enhancement. IMPRESSION: 1. No pulmonary embolism. 2. No acute cardiopulmonary abnormality. Dictated by: Ruperto Morris M.D. on 06/04/2020 at 19:12 Approved by: Ruperto Morris M.D. on 06/04/2020 at 19:16 ECG Data Attestation: I personally reviewed and interpreted this ECG as follows: Prior ECG tracings: not available for review Interpretation: Sinus rhythm Ventricular rate 88 Normal axis Normal QRS Nonspecific ST T wave changes MDM Narrative Medical decision making narrative: Patient does have a benign abdominal exam. She is Hemoccult positive. She has been on nonsteroidal anti-inflammatories after her knee surgery. She is afebrile. CT scan of her chest shows no signs of pulmonary embolism. She is not hypotensive. Not tachycardic. Is anemic to the point where I feel that her shortness of breath is most likely related to this. I consented her and will transfuse 2 units of packed red blood cells. Given the fact that she has been on anti-inflammatories since her postoperative knee replacement I did contact Dr. Munoz with General surgery who requests the patient be NPO after midnight and stated he will scope her tomorrow. I discussed the case with FRANCES Benitez's in the night hospitalist who will admit for further evaluation and treatment. I discussed all of the above findings with the patient and the need for admission and she expressed understanding and agreement. Discharge Plan Departure Patient Disposition: Admitted As Inpatient Clinical Impression: Anemia, GI (gastrointestinal bleed) Admit Date/Time: 06/04/20 19:34 Admit Provider: Sharyn Espinoza
[2020-06-04 17:48] LABS: COVID19 -Nasal RAPID Negative (Negative)
--- NOTE | 2020-06-04 19:41 | PC.NURSE ---
Pt ambulated to the restroom with her walker. pt had a steady gait.
--- NOTE | 2020-06-04 19:54 | ED.CHESTPAIN ---
HPI - Chest Pain General Source: patient Mode of arrival: Ambulatory Limitations: no limitations Related Data Home Medications Medication Instructions Recorded Confirmed acetaminophen 1,300 mg PO Q8H 05/21/20 05/23/20 biotin 2,500 mcg PO BID 05/21/20 05/23/20 calcium 600 mg PO BID 05/21/20 05/23/20 cholecalciferol (vitamin D3) 25 mcg PO DAILY 05/21/20 05/23/20 [Vitamin D3] diclofenac sodium [Voltaren] g TOPICAL QID 05/21/20 fexofenadine 180 mg PO QPM 05/21/20 05/23/20 gabapentin 300 mg PO 1-2XD 05/21/20 05/23/20 multivitamin 1 tab PO DAILY 05/21/20 05/23/20 triamterene-hydrochlorothiazid 1 - 2 cap PO DAILY 05/21/20 05/23/20 Previous Rx's Medication Instructions Recorded aspirin 81 mg PO BID #20 tab 05/24/20 docusate sodium [DOK] 100 mg PO BID #20 cap 05/24/20 ibuprofen [Advil] 400 mg PO Q4HR #0 tab 05/24/20 Allergies Allergy/AdvReac Type Severity Reaction Status Date / Time Sulfa (Sulfonamide Allergy Severe Tongue Verified 05/23/20 06:48 Antibiotics) swelling latex Allergy Mild Rash, Verified 05/23/20 06:48 bland skin succinylcholine AdvReac Severe Muscle Verified 05/23/20 06:48 spams for 2 days Review of Systems Constitutional Constitutional: Denies headache(s) ENT Ears, Nose, Mouth, and Throat: Denies vertigo, Reports dizziness and Denies headache(s) Neurologic Neurologic: Denies vertigo, Reports dizziness and Denies headache(s) Patient History Medical History History of breast cancer Prehypertension Primary osteoarthritis of hands, bilateral Primary osteoarthritis of knees, bilateral Wrist fracture, left Surgical History History of arthroscopy of knee History of bilateral mastectomy (~2017) History of blepharoplasty (~2013) History of partial mastectomy of both breasts S/P tendon repair Social History household members: spouse Smoking Status: Former smoker alcohol intake: current Smoking Status: Former smoker alcohol intake frequency: a few times a week Substance Use Type: does not use Exam Initial Vital Signs Initial Vital Signs: Vital Signs Temperature 98.7 F 06/04/20 16:37 Pulse Rate 87 06/04/20 16:37 Respiratory Rate 20 06/04/20 16:37 Blood Pressure 125/64 06/04/20 16:37 Pulse Oximetry 100 06/04/20 16:37 Course Orders Ordered: ED Orders 06/04/20 16:44 XR chest 1V Stat EKG-12 Lead Stat 06/04/20 16:56 BNP [NT-proBNP (BNP-Adult 18+)] Stat Complete Blood Count AUTO DIFF Stat Comprehensive Metabolic Panel Stat Lipase Stat Partial Thromboplastin Time Stat Prothrombin Time INR Stat Troponin & CK Cardiac Panel Stat 06/04/20 17:19 COVID19 Stat 06/04/20 17:35 Packed Cells Stat Type and Screen Stat 06/04/20 17:37 CT angio chest PE protocol Stat 06/04/20 19:24 Consult to General Surgery Stat Acetaminophen (Acetaminophen 325 Mg Tablet) 650 mg PO Q6HR PRN PRN Reason: Fever/Mild Pain (1-3) Hydrocodone Bitart/Acetaminophen (Hydrocodone/Acet 5/325 Tablet) 1 tab PO Q4HR PRN PRN Reason: Pain, Moderate (4-6) Docusate Sodium (Docusate 100 Mg Capsule) 100 mg PO BID VANDANA Sodium Chloride (Normal Saline 0.9%) 1,000 mls @ 100 mls/hr IV CONT VANDANA Naloxone HCl (Naloxone 0.4 Mg/Ml Vial) 0.2 mg IV Q2MIN PRN PRN Reason: Opiate Reversal Ondansetron HCl (Ondansetron 4 Mg Odt) 4 mg PO Q8HR PRN PRN Reason: Nausea And Vomiting Sennosides (Sennosides 8.6 Mg Tablet) 17.2 mg PO BEDTIME PRN PRN Reason: constipation Vital Signs Vital signs: Vital Signs - 8 hr 06/04/20 16:37 06/04/20 16:46 06/04/20 17:00 Temperature 98.7 F Pulse Rate 87 89 83 Respiratory Rate 20 21 Blood Pressure 125/64 142/64 H 134/61 Pulse Oximetry 100 100 98 06/04/20 17:15 06/04/20 17:30 06/04/20 17:45 Temperature Pulse Rate 82 87 82 Respiratory Rate 13 32 H 22 Blood Pressure 132/67 Pulse Oximetry 100 100 100 06/04/20 18:00 06/04/20 18:20 06/04/20 18:28 Temperature Pulse Rate 79 92 H 88 Respiratory Rate 11 L 29 H 14 Blood Pressure 126/63 130/70 Pulse Oximetry 97 97 98 06/04/20 18:30 06/04/20 18:45 06/04/20 19:00 Temperature 99.5 F Pulse Rate 86 85 87 Respiratory Rate 14 20 17 Blood Pressure 126/64 133/67 Pulse Oximetry 98 97 97 06/04/20 19:10 06/04/20 19:15 06/04/20 19:20 Temperature 98.6 F Pulse Rate 86 86 84 Respiratory Rate 13 11 L 16 Blood Pressure 141/72 H 141/72 H Pulse Oximetry 97 97 98 06/04/20 19:30 Temperature Pulse Rate 85 Respiratory Rate 11 L Blood Pressure 138/68 Pulse Oximetry 99 MDM - Chest Pain Lab Data Result diagrams: 06/04/20 16:56 06/04/20 16:56 Labs: Lab Results 06/04/20 06/04/20 06/04/20 Range/Units 16:56 16:56 16:56 WBC 14.2 H (4.5-11.0) X10^3/uL RBC 2.30 L (4.0-5.2) X10^6/uL Hgb 6.5 L* (12.0-16.0) g/dL Hct 19.8 L* (36-46) % MCV 86.0 (80-100) fL MCH 28.2 (26-34) PG MCHC 32.8 (30-36) % RDW 15.1 H (11.6-14.8) % Plt Count 583 H (150-400) X10^3/uL Neut % (Auto) 80.2 H (50-75) % Lymph % (Auto) 11.8 L (25-40) % [place] % (Auto) 5.8 (3-14) % Eos % (Auto) 1.5 L (2-4) % Baso % (Auto) 0.7 (0-2) % Neut # (Auto) 25143 H (4828-7953) /uL Lymph # (Auto) 1700 (7792-9978) /uL [place] # (Auto) 800 (0-900) /uL Eos # (Auto) 200 (0-450) /uL Baso # (Auto) 100 (0-100) /uL PT 11.8 (10.1-12.7) SECONDS INR 1.0 (0.9-1.3) APTT 29 (26.4-36.2) SECONDS Sodium 128 L (137-145) mmol/L Potassium 3.5 (3.4-5.1) mmol/L Chloride 95 L (98-107) mmol/L Carbon Dioxide 29 (22-32) mmol/L BUN 26 H (7-17) mg/dL Creatinine 0.72 (0.52-1.04) mg/dL Estimated GFR > 60.0 (>60) mL/min BUN/Creatinine Ratio 36.1 H (6-22) Glucose 149 H (80-110) mg/dL Calcium 9.1 (8.4-10.2) mg/dL Total Bilirubin 0.2 (0.2-1.3) mg/dL AST 29 (14-36) IU/L ALT 46 H (<35) IU/L Alkaline Phosphatase 120 (38-126) U/L Total Creatine Kinase 25 L (30-135) U/L CK-MB (CK-2) TNP CK-MB (CK-2) Rel Index TNP Troponin I < 0.012 (0.01-0.034) ng/mL NT-Pro-B Natriuret Pep 496 H (<125) pg/mL Total Protein 6.1 L (6.3-8.2) g/dL Albumin 3.5 (3.5-5.0) g/dL Globulin 2.6 (1.7-4.1) g/dL Albumin/Globulin Ratio 1.3 (1.0-2.8) Lipase 49 (23-300) U/L SARS-CoV-2 (PCR) (Negative) Blood Type Antibody Screen Crossmatch 06/04/20 06/04/20 Range/Units 17:19 17:35 WBC (4.5-11.0) X10^3/uL RBC (4.0-5.2) X10^6/uL Hgb (12.0-16.0) g/dL Hct (36-46) % MCV (80-100) fL MCH (26-34) PG MCHC (30-36) % RDW (11.6-14.8) % Plt Count (150-400) X10^3/uL Neut % (Auto) (50-75) % Lymph % (Auto) (25-40) % [place] % (Auto) (3-14) % Eos % (Auto) (2-4) % Baso % (Auto) (0-2) % Neut # (Auto) (6722-9902) /uL Lymph # (Auto) (6869-2844) /uL [place] # (Auto) (0-900) /uL Eos # (Auto) (0-450) /uL Baso # (Auto) (0-100) /uL PT (10.1-12.7) SECONDS INR (0.9-1.3) APTT (26.4-36.2) SECONDS Sodium (137-145) mmol/L Potassium (3.4-5.1) mmol/L Chloride (98-107) mmol/L Carbon Dioxide (22-32) mmol/L BUN (7-17) mg/dL Creatinine (0.52-1.04) mg/dL Estimated GFR (>60) mL/min BUN/Creatinine Ratio (6-22) Glucose (80-110) mg/dL Calcium (8.4-10.2) mg/dL Total Bilirubin (0.2-1.3) mg/dL AST (14-36) IU/L ALT (<35) IU/L Alkaline Phosphatase (38-126) U/L Total Creatine Kinase (30-135) U/L CK-MB (CK-2) CK-MB (CK-2) Rel Index Troponin I (0.01-0.034) ng/mL NT-Pro-B Natriuret Pep (<125) pg/mL Total Protein (6.3-8.2) g/dL Albumin (3.5-5.0) g/dL Globulin (1.7-4.1) g/dL Albumin/Globulin Ratio (1.0-2.8) Lipase (23-300) U/L SARS-CoV-2 (PCR) Negative (Negative) Blood Type A Positive Antibody Screen Negative Crossmatch See Detail Discharge Plan Departure Patient Disposition: Admitted As Inpatient Clinical Impression: Anemia, GI (gastrointestinal bleed)
--- NOTE | 2020-06-04 19:58 | PM.HP.1 ---
History of Present Illness History of Present Illness Date Patient Seen: 06/04/20 Time Patient Seen: 07:32 Chief complaint: RIGHT KNEE PAIN CHEST TIGHTNESS DIZZY NAUSEA Narrative: Patient is a 70-year-old female Brooke Vincent, who had a right TKA on 05/23/[address] Newman. Does have a prior history of breast cancer resulting in a total bilateral mastectomy and subsequent neuropathy of chest wall, and hypertension. Patient presented to the emergency room complaining of right knee pain, chest tightness, dizzy and some nausea. She does have right lower extremity swelling but she thinks that this is improving. Does have bruising around the right knee. Has had some dark colored stools. Has been taking all of her postoperative medications. Patient had a positive Hemoccult in ER. Upon admit patient presented with a benign abdominal exam, Hemoccult positive, afebrile. Chest CT negative for PE, pt was anemic and transfuse 2 units of packed red blood cells was began in ER. Dr. Sparrow felt that the patient's postop right surgical knee was not involved, and the patient demonstrated no s/s of peripheral DVT and was not involved in patient's presentation and so Consult Dr. Munoz with General surgery who requests the patient be NPO after midnight and stated he will scope her tomorrow. Upon admission patient was complaining of continued dizziness when up with activity, continued nausea, indigestion and epigastric discomfort that has been present since her surgery. Patient denies chest pain or shortness of breath at rest. Patient to be admitted for anemia secondary to lower GI bleed, hyponatremia. Patient's vital signs upon admit temp 99.5?, BP 133/67, HR 88, RR 14, 97% on room air. WBC 14.2, HGB 6.5, HCT 19.8, PLT 583, sodium 128, chloride 95, BUN 26, glucose 149, ALT 46, BUN creatinine ratio 36.1 troponin negative, proBNP 496, lipase negative. Chest x-ray demonstrated no acute cardiopulmonary abnormalities, EKG normal sinus rhythm, ventricular rate 88, without ST or T-wave changes. Patient History Medical History History of breast cancer Prehypertension Primary osteoarthritis of hands, bilateral Primary osteoarthritis of knees, bilateral Wrist fracture, left Surgical History History of arthroscopy of knee History of bilateral mastectomy (~2017) History of blepharoplasty (~2013) History of partial mastectomy of both breasts S/P tendon repair Family & Social History Family History Father Heart disease Mother Hypertension Breast cancer Brother Esophageal adenocarcinoma Social History: household members spouse Tobacco & Substance use: Tobacco type cigarettes Smoking Status Former smoker alcohol intake current alcohol intake frequency a few times a week Substance Use Type does not use Meds Home Medications and Allergies Home Medications Medication Instructions Recorded Confirmed Type acetaminophen 1,300 mg PO Q8H 05/21/20 06/04/20 History biotin 2,500 mcg PO BID 05/21/20 06/04/20 History calcium 600 mg PO BID 05/21/20 06/04/20 History cholecalciferol (vitamin D3) 25 mcg PO DAILY 05/21/20 06/04/20 History [Vitamin D3] fexofenadine 180 mg PO QPM 05/21/20 06/04/20 History gabapentin 300 mg PO 1-2XD 05/21/20 06/04/20 History multivitamin 1 tab PO DAILY 05/21/20 06/04/20 History triamterene-hydrochlorothiazid 1 - 2 cap PO DAILY 05/21/20 06/04/20 History aspirin 81 mg PO BID #20 tab 05/24/20 06/04/20 Rx docusate sodium [DOK] 100 mg PO BID #20 cap 05/24/20 06/04/20 Rx ibuprofen [Advil] 400 mg PO Q4HR #0 tab 05/24/20 06/04/20 Rx Allergies Allergy/AdvReac Type Severity Reaction Status Date / Time Sulfa (Sulfonamide Allergy Severe Tongue Verified 05/23/20 06:48 Antibiotics) swelling latex Allergy Mild Rash, Verified 05/23/20 06:48 bland skin succinylcholine AdvReac Severe Muscle Verified 05/23/20 06:48 spams for 2 days Review of Systems Review of Systems ROS: Yes All systems reviewed with the patient and are negative except as otherwise documented Constitutional Constitutional: Reports poor appetite ENT Ears, Nose, Mouth, and Throat: Yes dizziness Cardiovascular Cardiovascular: Reports lightheadedness and Reports dyspnea on exertion Respiratory Respiratory: Reports dyspnea on exertion Gastrointestinal Gastrointestinal: Reports heartburn Musculoskeletal Musculoskeletal: Reports arthralgias, Reports joint swelling, Reports muscle weakness and Reports stiffness Comments: Right knee-10 days postop Neurologic Neurologic: Reports system reviewed and no additional complaints, except as documented and Reports dizziness Psychiatric Psychiatric: Reports system reviewed and no additional complaints, except as documented Endocrine Endocrine: Reports system reviewed and no additional complaints, except as documented Hematologic/Lymphatic Hematologic/Lymphatic: Reports system reviewed and no additional complaints, except as documented Allergic/Immunologic Allergic/Immunologic: Reports system reviewed and no additional complaints, except as documented and Reports GI upset with certain foods Exam Vital Signs (past 8 hours): - 06/04/20 16:37 06/04/20 16:46 06/04/20 17:00 Temperature 98.7 F Pulse Rate 87 89 83 Respiratory Rate 20 21 Blood Pressure 125/64 142/64 H 134/61 Pulse Oximetry 100 100 98 06/04/20 17:15 06/04/20 17:30 06/04/20 17:45 Temperature Pulse Rate 82 87 82 Respiratory Rate 13 32 H 22 Blood Pressure 132/67 Pulse Oximetry 100 100 100 06/04/20 18:00 06/04/20 18:20 06/04/20 18:28 Temperature Pulse Rate 79 92 H 88 Respiratory Rate 11 L 29 H 14 Blood Pressure 126/63 130/70 Pulse Oximetry 97 97 98 06/04/20 18:30 06/04/20 18:45 06/04/20 19:00 Temperature 99.5 F Pulse Rate 86 85 87 Respiratory Rate 14 20 17 Blood Pressure 126/64 133/67 Pulse Oximetry 98 97 97 06/04/20 19:10 06/04/20 19:15 06/04/20 19:20 Temperature 98.6 F Pulse Rate 86 86 84 Respiratory Rate 13 11 L 16 Blood Pressure 141/72 H 141/72 H Pulse Oximetry 97 97 98 06/04/20 19:30 Temperature Pulse Rate 85 Respiratory Rate 11 L Blood Pressure 138/68 Pulse Oximetry 99 Oxygen Delivery Method Room Air Narrative Exam Narrative: General: Patient is a well-developed, well-nourished female, who appears younger than stated age, in no distress at this time. HEENT: Normocephalic, atraumatic, extraocular muscles intact, oral pharynx is clear and mucous membranes are moist. Neck is supple and symmetric, trachea is midline, no adenopathy, no thyroid enlargement, nontender, no masses palpated. Negative for JVD Chest: Normal AP diameter and contour without kyphoscoliosis, no nasal flaring, retractions, or tachypneic labored Lungs: Auscultation of all lung colón are clear without adventitious sounds, wheezes, rhonchi, or rales. Cardio: S1 & S2 with regular rate and rhythm without murmur, rubs, or gallops, no carotid bruit, no cardiac pulsations present. Abdomen: Soft nontender, negative for organomegaly, or masses. Bowel sounds are present in all 4 quadrants without guarding or rebound, no CVA tenderness. Musculoskeletal: Muscle strength and tone are equal within normal limits with the exception of the right knee, no deformity, crepitus, effusions, cyanosis, clubbing present. intact radial and pedal pulses are normal. Patient has a healing vertical incision without sutures present to the right knee, without erythema or drainage dry and intact, mild diffuse inflammation that extends down to the right foot, no pitting edema. Bilateral calfs are is soft nontender and cool to touch negative bilateral Homans sign. Skin: Warm dry and intact without rashes, ulcerations or petechiae, with the exception of right knee. Neuro: Alert and orientated x3, sensation to touch intact, no gross deficits noted of cranial nerves. Psych: Patient has a well-kept appearance, appropriate affect, mental status attitude thought context and judgment are appropriate for age. Objective Labs Result Diagrams: 06/04/20 16:56 06/04/20 16:56 Labs: Laboratory Results - last 24 hr 06/04/20 06/04/20 06/04/20 16:56 16:56 16:56 WBC 14.2 H RBC 2.30 L Hgb 6.5 L* Hct 19.8 L* MCV 86.0 MCH 28.2 MCHC 32.8 RDW 15.1 H Plt Count 583 H Neut % (Auto) 80.2 H Lymph % (Auto) 11.8 L [place] % (Auto) 5.8 Eos % (Auto) 1.5 L Baso % (Auto) 0.7 Neut # (Auto) 22591 H Lymph # (Auto) 1700 [place] # (Auto) 800 Eos # (Auto) 200 Baso # (Auto) 100 PT 11.8 INR 1.0 APTT 29 Sodium 128 L Potassium 3.5 Chloride 95 L Carbon Dioxide 29 BUN 26 H Creatinine 0.72 Estimated GFR > 60.0 BUN/Creatinine Ratio 36.1 H Glucose 149 H Calcium 9.1 Total Bilirubin 0.2 AST 29 ALT 46 H Alkaline Phosphatase 120 Total Creatine Kinase 25 L CK-MB (CK-2) TNP CK-MB (CK-2) Rel Index TNP Troponin I < 0.012 NT-Pro-B Natriuret Pep 496 H Total Protein 6.1 L Albumin 3.5 Globulin 2.6 Albumin/Globulin Ratio 1.3 Lipase 49 SARS-CoV-2 (PCR) Blood Type Antibody Screen Crossmatch 06/04/20 06/04/20 17:19 17:35 WBC RBC Hgb Hct MCV MCH MCHC RDW Plt Count Neut % (Auto) Lymph % (Auto) [place] % (Auto) Eos % (Auto) Baso % (Auto) Neut # (Auto) Lymph # (Auto) [place] # (Auto) Eos # (Auto) Baso # (Auto) PT INR APTT Sodium Potassium Chloride Carbon Dioxide BUN Creatinine Estimated GFR BUN/Creatinine Ratio Glucose Calcium Total Bilirubin AST ALT Alkaline Phosphatase Total Creatine Kinase CK-MB (CK-2) CK-MB (CK-2) Rel Index Troponin I NT-Pro-B Natriuret Pep Total Protein Albumin Globulin Albumin/Globulin Ratio Lipase SARS-CoV-2 (PCR) Negative Blood Type A Positive Antibody Screen Negative Crossmatch See Detail Assessment & Plan Assessment & Plan narrative: This patient requires acute care inpatient hospital management for anemia secondary to lower GI bleed, and hyponatremia. The patient is at much higher risk for medical and surgical complications because of her recent right TKA. These factors increase the difficulty and complexity of medical and surgical interventions and increases the chances of poor outcomes such as morbidity and mortality, as well as complications such as PE or DVT. 1. Anemia secondary to lower GI bleed, acute, present on admission-resulting in hyponatremia -admit temp 99.5?, BP 133/67, HR 88, RR 14, 97% on room air. WBC 14.2, HGB 6.5, HCT 19.8, PLT 583, sodium 128, chloride 95, BUN 26, glucose 149, ALT 46, BUN creatinine ratio 36.1 troponin negative, proBNP 496, lipase negative. Chest x-ray demonstrated no acute cardiopulmonary abnormalities, EKG normal sinus rhythm, ventricular rate 88, without ST or T-wave changes. Chest CT: Negative for PE -vital signs if unstable q.2 hours x2, then q.4 hours if stable, call for heart rate> 100, systolic BP< 100, activity-as tolerated with fall precautions, patient on clear liquids-will re-evaluate tomorrow, strict I&O Q shift, DVT prophylaxis contraindicated as per Dr. Munoz requested patient be NPO overnight for a scope tomorrow consult SCDs only, -patient was typed and cross in ER (A+)patient receiving 2 units of blood then will reassess H&H 30-45 minutes following 2nd transfusion and then will re-evaluate, goal hemoglobin> 8-9. -labs ordered CBC, peripheral smear, reticulocyte count, PT, PTT, iron profile, CMP, lactate -consults ordered physical therapy, occupational therapy. -prevention vaccines: Seasonal flu recommended 2. Hyponatremia, acute, present on admission -patient receiving normal saline at 100 cc/hour, will monitor electrolytes 3. Right knee pain, secondary to right TKA on 05/23/[address] Newman, acute, present on admission, condition improving. -continue conservative measures for pain and comfort, physical therapy consult. -monitoring for DVT, physical exam negative, negative Homans sign, negative chest CT for PE 4. Essential hypertension, chronic, well controlled not present on admission -continue patient's triamterene HCTZ Code status: Full code Surrogate/plan of care: Sony Vincent spouse COVID PCR: Negative VTE prophylaxis: Contraindicated due to GI bleed, SCDs Scores GCS [place] coma scale eye opening: Spontaneous [place] coma scale verbal response: Orientated [place] coma scale motor response: Obey commands Shashi coma scale total score: 15 NIHSS Level of Conciousness: Alert, keenly responsive Ask month/age: Answers both questions correctly. Open/close eyes, close hand: Performs both tasks correctly Best gaze horizontal: Normal Visual colón: No visual loss Facial palsy: Normal symetrical movement Left arm drift: No drift for full 10 sec Right arm drift: No drift for full 10 sec Left leg drift: No drift for full 5 sec Right leg drift: Some effort against gravity, cannot maintain, drifts down to bed Limb ataxia: Absent Sensory on face/arms/legs: Normal, no sensory loss Best language: No aphasia, normal Dysarthria: Normal Extinction or inattention: No abnormality Total NIH Stroke scale score: 2 SOFA PaO2/FIO2: >=400 mmHg Platelets: >= 150 Bilirubin: < 1.2 mg/dL Hypotension: MAP >= 70 mmHg Shashi Coma Scale: 15 Renal: < 1.2 mg/dL SOFA Score: 0 Wells' Criteria for PE Clinical signs and symptoms of DVT: No PE is #1 Dx or equally likely: Yes Heart rate > 100: No Immobilization at least 3 days or surg in previous 4 weeks: Yes History of PE or DVT: No Hemoptysis: No Malignancy w/Treatment within 6 months or palliative: No Wells' PE Score total: 4.5
--- NOTE | 2020-06-04 20:01 | PC.NURSE ---
transferred w/ blood infusing @ 1999.
[2020-06-04 20:31] LABS: Lactate (Lactic Acid) 1.1 mmol/L (0.7-2.1)
[2020-06-04 21:25] LABS: Magnesium 1.6 mg/dL (1.6-2.3)
[2020-06-04] MEDS: SODIUM CHLORIDE 0.9% 1,000 ML 100 ML IV (21:55)
[2020-06-04] MEDS: HYDROCODONE/ACET 5/325 TABLET 1 TAB PO (22:00)
[2020-06-04] MEDS: DOCUSATE 100 MG CAPSULE PO (22:00)
[2020-06-05] VITALS (26 sets, daily range): BP systolic 135–160; BP diastolic 65–84; PULSE 68–94; RESP 9–22; TEMP 36.6–37.8; O2SAT 92–100; BMI 28.3
--- NOTE | 2020-06-05 | PATH_ITS ---
[facility] Accession Number: [id number] . 01 Material submitted: . stomach - GASTRIC ANTRUM . 02 Diagnosis: Stomach, Antrum, Biopsy: Antral and body-type mucosa with no diagnostic abnormality. No evidence of Helicobacter on H/E stain. Negative for intestinal metaplasia. Negative for dysplasia and malignancy. [facility] 06/08/2020 1407 Local . 02 Comment: An immunohistochemical stain for Helicobacter organisms will be performed and the results reported as an addendum. . 02 Electronically signed: . Elle Cruz MD, Pathologist NPI- [id number] . 01 Gross description: . GASTRIC ANTRUM: Received in formalin are 3 fragment(s) of echeverria, soft tissue measuring 0.1 x 0.1 x 0.1 cm to 0.2 x 0.2 x 0.2 cm submitted entirely in 1 cassette(s) /BONNIE 06/06/2020 1906 Local . 02 Pathologist provided ICD-10: R10.9 . 02 CPT . 141070, [id number] Performed at: 01 [facility] [address], [place], [place] [id number] MD Eagle Glaser MD Phone: [phone] Performed at: 02 [facility] [address] [place], [place] [id number] MD Elle Cruz MD Phone: [phone]
[2020-06-05] MEDS: HYDROCODONE/ACET 5/325 TABLET 1 TAB PO (01:47)
[2020-06-05] MEDS: CALCIUM CARBONATE 500 MG TAB PO (02:13)
[2020-06-05 04:14] LABS: Add Manual Diff / Slide Review NO; Basophils Absolute Auto 100 /uL (0-100); Basophils Percent Auto 0.8 % (0-2); Eosinophils Absolute Auto 300 /uL (0-450); Eosinophils Percent Auto 2.1 % (2-4); Hemoglobin 8.1 g/dL (12.0-16.0); Lymphocytes Absolute Auto 2500 /uL (1100-4500); Lymphocytes Percent Auto 19.1 % (25-40); Monocytes Absolute Auto 800 /uL (0-900); Monocytes Percent Auto 5.8 % (3-14); Neutrophils Absolute Auto 9300 /uL (1500-7000); Neutrophils Percent Auto 72.2 % (50-75); Platelet Count 510 X10^3/uL (150-400); Red Blood Cell Count 2.78 X10^6/uL (4.0-5.2); Red Cell Distribution Width 14.8 % (11.6-14.8); White Blood Cell Count 12.9 X10^3/uL (4.5-11.0)
[2020-06-05 04:19] LABS: INR 1.1 (0.9-1.3); Prothrombin Time 12.9 SECONDS (10.1-12.7)
[2020-06-05 04:21] LABS: Hematocrit 24.5 % (36-46)
[2020-06-05 04:25] LABS: Alanine Aminotransferase 37 IU/L (<35); Albumin Globulin Ratio 1.3 (1.0-2.8); Alkaline Phosphatase 91 U/L (38-126); Aspartate Aminotransferase 22 IU/L (14-36); BUN Creatinine Ratio 31.7 (6-22); Bilirubin Total 0.6 mg/dL (0.2-1.3); Blood Urea Nitrogen 19 mg/dL (7-17); Calcium 8.4 mg/dL (8.4-10.2); Carbon Dioxide 31 mmol/L (22-32); Chloride 98 mmol/L (98-107); Estimated Glomerular Filt Rate > 60.0 mL/min (>60); Globulin 2.3 g/dL (1.7-4.1); Glucose 115 mg/dL (80-110); HEMOLYSIS < 15 (0-50); Potassium 3.6 mmol/L (3.4-5.1); Sodium 130 mmol/L (137-145); Total Protein 5.3 g/dL (6.3-8.2)
[2020-06-05 04:29] LABS: HEMOLYSIS < 15 (0-50); Iron 86 ug/dL (37-170)
[2020-06-05 04:34] LABS: NT-proBNP (BNP-Adult 18+) 465 pg/mL (<125)
[2020-06-05 04:39] LABS: Percent Iron Saturation 29 % (15-50); Total Iron Binding Capacity 294 ug/dL (265-497)
[2020-06-05 05:23] LABS: Transferrin 206 mg/dL (206-381)
[2020-06-05] MEDS: HYDROMORPHONE 0.5 MG INJ IV ×3 (06:56→20:33)
[2020-06-05] MEDS: PANTOPRAZOLE 40 MG VIAL 20 MG IV (06:56)
--- NOTE | 2020-06-05 10:11 | OT.IPNOTE ---
Pt had recent RTKA on 05/23/20 and here for anemia due to lower GI bleed, pt states does not have any OT needs and has all equipment at home in addition to a supportive . Therefore pt refusing OT eval and discharge pt from OT services at this time.
[2020-06-05] MEDS: PANTOPRAZOLE 40 MG VIAL IV ×2 (10:16→20:32)
--- NOTE | 2020-06-05 10:25 | CM.DANOTE ---
DCP: Case received, EMR reviewed and met with patient. Introduced self and role. Was able to obtain information from patient regarding her baseline activity status, as well as recent surgery prior to this hospitalization. DCP assessment completed with information currently available. Patient is a 70 year old female who admitted yesterday evening to the care of the hospitalist. PCP: Dr. Mascorro. Payer: confirmed: [facility] [employer]. Patient came to the hospital via private vehicle secondary to having some abdominal/chest, discomfort. She had been here recently, approximately 10 days ago with a right total knee. Patient holds current diagnosis of GI Bleed, and will be having a scope procedure today. Met with patient in her room. She was sitting up in bed, pleasant, alert and oriented. Confirmed from patient that she had been here recently for knee surgery, and was doing well at home with spouse's support. Patient has a cane and walker for home use from prior surgery. Patient resides in [facility] with her spouse, Sony. P: DCP to continue to follow. Patient should be able to go home when medically stable and after testing is completed. April Jenkisn RN/Pool Player
[2020-06-05] MEDS: SODIUM CHLORIDE 0.9% 1,000 ML 100 ML IV (11:10)
[2020-06-05 11:28] LABS: Hematocrit 29.9 % (36-46); Hemoglobin 9.9 g/dL (12.0-16.0)
--- NOTE | 2020-06-05 11:30 | PT.IIE ---
Current Diagnoses Melena (06/04/20) Surgery Performed Operation Date: 06/05/20 16:00 <No data on this case meets the specified criteria> Surgical History (Last Reviewed 06/05/20 @ 12:21 by Federico Munoz MD) History of arthroscopy of knee History of bilateral mastectomy (~2017) History of blepharoplasty (~2013) History of partial mastectomy of both breasts S/P tendon repair Medical History (Last Reviewed 06/05/20 @ 12:21 by Federico Munoz MD) History of breast cancer Prehypertension Primary osteoarthritis of hands, bilateral Primary osteoarthritis of knees, bilateral Wrist fracture, left Physical Therapy Inpatient Evaluation/Re-Eval M1 PT/OT-IP Prior Functional Status Start: 06/05/20 08:50 Freq: NEEDED Status: Active Protocol: Document 06/05/20 11:29 AW (Rec: 06/05/20 12:36 AW [id number]) Medical Review Prior Functional Status Medical History Reviewed Yes Communication WNL. Pt is an effective verbal communicator. Mobility and Gait Pt is typically independent with all mobilities. She had R TKA on 05/23/20 and has been using a FWW since that time. She was nearly ready to graduate to using a cane before current hospitalization . Activities of Daily Living and IADL's Independent with all ADL's and IADL's Social History Household Members spouse Living Arrangements House Number of Floors (Floors) One Floor Number of Stairs To Enter/Railing? level entrance Home Environment High Toilet,Walk in Shower, Built-In Shower Seat Home Equipment Front Wheel Walker,Straight Cane,Grab Bars Near Toilet, Grab Bars In Shower Employment Status Retired Additional Social History Comment Pt lives with her spouse in [place]. Both are retired . Spouse will be able and available to assist at discharge. M2 PT-IP Current Condition Start: 06/05/20 08:50 Freq: NEEDED Status: Active Protocol: Document 06/05/20 11:29 AW (Rec: 06/05/20 12:36 AW [id number]) Physical Therapy Current Condition Current Condition Evaluation Date 06/05/20 Treatment Diagnosis GI bleed; recent R TKA; difficulty in walking Onset Date 06/04/20 Weight Bearing Status Weight Bearing Status Weight Bear as Tolerated M3 PT-IP Subjective Start: 06/05/20 08:50 Freq: NEEDED Status: Active Protocol: Document 06/05/20 11:29 AW (Rec: 06/05/20 12:36 AW [id number]) Subjective Physical Therapy Visit Type Type Initial Evaluation Visit Start Time 10:58 Visit Stop Time 11:29 Total Visit Minutes 31 Notes Hgb/Hct was 6.5/19.8 pre- transfusion. Improved to 9.9/ 29.9 after transfusion. Physical Therapy Visit Comments Patient Comments Pt is willing to participate with PT Patient Goals Return to home and resume outpatient PT Therapy Pain Assessment Pain When Pain Assessed During Mobility Pain Present Pain Present Pain Reported Location Right Knee Intensity 6 Scale Used Numeric (0 - 10) Pain Management Techniques Timing of Activity with Medications M4 PT-IP Mobility and Gait Start: 06/05/20 08:50 Freq: NEEDED Status: Active Protocol: Document 06/05/20 11:29 AW (Rec: 06/05/20 12:36 AW [id number]) PT-Bed Mobility Assessment Supine to Sit Supine to Sit Standby Assistance Scooting Scooting to Edge of Bed Standby Assistance PT-Transfer Assessment Sit to and From Stand Sit to and from Stand Standby Assistance Equipment Transfer Assistive Device Gait Belt,Front Wheeled Walker Orthotic/Prosthetic Devices or Brace: No Transfers Transfer Destination Chair,Bedside Commode Transfer Technique Stand Step Pivot Transfer Ability Level of Assist Standby Assistance,1 Person Assistance,Use of Upper Extremities Comments Mobility Comments Pt was lying in bed as PT arrived. She completed supine to sit from flat bed and sat EOB SBA. She stood from the bed and requested to use the toilet. Bathroom floor was wet with dripping from sprayer noted. RN was notified. Pt transferred to the BSC instead of toilet SBA and completed all pericare SBA. She then stood from the commode and ambulated around the unit 200 feet with FWW SBA. On return to the room, she transferred to the chair SBA. Call light and all needs were placed within reach. Gait Assessment Gait Gait Assistance Required: Standby Assistance Distance (Feet) 200 Able to Maintain Weight Bearing Status Yes During Gait Assistive Devices Assistive Device Gait Belt,Front Wheeled Walker Gait Deviations General Gait Pattern Antalgic,Decreased Stride Length,Decreased Feet Clearance,Flexed Trunk,Step-to Gait Factors Limiting Gait Function Factors Limiting Gait Function Decreased Strength,Limited Range of Motion,Pain,Poor Balance Comments Gait Comments Gait was characterized by decreased knee flexion RLE during swing phase. She was instructed in standing pre- gait activities with FWW to encourage weight shift on to LLE with improved toe-off and knee flexion RLE. Stair Climbing Assessment Comments Stair Climbing Comments Not assessed. PT-Balance Assessment Sitting Balance and Reactions Static Sitting Balance Ability Normal Dynamic Sitting Balance Ability Normal Standing Balance and Reactions Static Standing Balance Ability Good Dynamic Standing Balance Ability Good Device Used FWW M5 PT-IP Objective Assessments Start: 06/05/20 08:50 Freq: NEEDED Status: Active Protocol: Document 06/05/20 11:29 AW (Rec: 06/05/20 12:36 AW [id number]) Orientation Orientation/Cognition Level of Alertness Alert Orientation Name,Day of Week,Place, Situation Language Function Ability No Deficits Noted Safety Awareness Understands Safety Issues Memory Description No Deficits Noted Gross Range of Motion Lower Extremity ROM Assessment Right Impaired Impairments knee flexion <110 degrees Strength Lower Extremity Strength Assessment Right Impaired Hip 4-/5 Knee 4-/5 Sensation Assessment Sensation Gross Sensation WNL M6 PT-IP Treatment Start: 06/05/20 08:50 Freq: NEEDED Status: Active Protocol: Document 06/05/20 11:29 AW (Rec: 06/05/20 12:36 AW [id number]) Physical Therapy Treatment Exercises Exercises Ankle Pumps,Gluteal Sets,Quad Sets,Heel Slides,Seated Knee Flexion/Extension Education Education Provided Safety Other Treatments Other Treatment Performed Provided education on plan of care. M7 PT-IP Assessment and Plan Start: 06/05/20 08:50 Freq: NEEDED Status: Active Protocol: Document 06/05/20 11:29 AW (Rec: 06/05/20 12:36 AW [id number]) PT Summary Assessment and Plan Potential Rehabilitation Potential Good Status of Condition at Evaluation Evolving Summary Impairments Pain,ROM,Strength,Balance,Bed Mobility,Transfers,Gait, Activity Tolerance Assessment Summary Mihaela is a 75 yo woman seen for PT evaluation with admitting diagnosis of possible GI bleed. She is typically independent with all mobility but had R TKA on and has been using FWW since that time. She is requiring SBA with all mobilities with FWW on evaluation which appears to be consistent with her recent baseline. PT will follow for prevention of deterioration in the context of new anemia and possible GI bleed. Anticipate pt will be safe to discharge home once medically cleared. Goals Bed Mobility Goal Independent Transfer Goal Independent,Front Wheeled Walker Gait Goal Independent,Front Wheel Walker Gait Distance 200 Frequency of Treatment Frequency Of Treatment Once a Day Treatment Plan Physical Therapy Treatment Plan Bed Mobility Training,Transfer Training,Gait Training, Therapeutic Exercise,Balance Retraining,Discharge Planning, Hot or Cold Pack,Neuromuscular Re-ed,Manual Therapy Recommendations To Nursing Amount of Assist Needed Standby Assistance Discharge Recommendations PT Discharge Recommendations Home with Assistance, Outpatient PT Other Discharge Recommendations home with resumed outpatient PT Transportation Needs at Discharge Private Vehicle
--- NOTE | 2020-06-05 12:17 | PM.PN.1 ---
Subjective Subjective Date Patient Seen: 06/05/20 Time Patient Seen: 12:18 Interval history: 70 female with PMH of HTN, breast cancer with recent rate knee TKA with Dr. Newman taking asa and NSAID BID admitted yesterday with symptomatic anemia, Hemoccult-positive stools. She states her stools have been somewhat dark but she related this to her oxycodone use and problems with hard stooling. General surgery consultation is pending. On admission her hemoglobin was 6.6, was given 2 units of packed red blood cells. Hemoglobin improved to 8.1 and even further this morning to 9.9. The patient feels much improved and denies any current chest pain, shortness of breath. Although she has not walked around much to evaluate for dyspnea on exertion. Reports a prior colonoscopy 3 years ago which was completely normal per her report. Exam Vital Signs (past 8 hours): - 06/05/20 08:00 06/05/20 08:31 06/05/20 11:10 Temperature 97.8 F 98 F Pulse Rate 93 H 92 H Respiratory Rate 16 15 Blood Pressure 140/78 142/71 H Pulse Oximetry 92 92 93 06/05/20 12:08 Temperature Pulse Rate Respiratory Rate Blood Pressure Pulse Oximetry 93 Oxygen Delivery Method Room Air Oxygen Flow Rate 0 Narrative Exam Narrative: General: Patient is a well-developed, well-nourished female, who appears younger than stated age, in no distress at this time. HEENT: Normocephalic, atraumatic, extraocular muscles intact, oral pharynx is clear and mucous membranes are moist. Neck is supple and symmetric, trachea is midline, no adenopathy, no thyroid enlargement, nontender, no masses palpated. Negative for JVD Chest: Normal AP diameter and contour without kyphoscoliosis, no nasal flaring, retractions, or tachypneic labored Lungs: Auscultation of all lung colón are clear without adventitious sounds, wheezes, rhonchi, or rales. Cardio: S1 & S2 with regular rate and rhythm without murmur, rubs, or gallops, no carotid bruit, no cardiac pulsations present. Abdomen: Soft nontender, negative for organomegaly, or masses. Bowel sounds are present in all 4 quadrants without guarding or rebound, no CVA tenderness. Musculoskeletal: Muscle strength and tone are equal within normal limits with the exception of the right knee, no deformity, crepitus, effusions, cyanosis, clubbing present. intact radial and pedal pulses are normal. Patient has a healing vertical incision present to the right knee, without erythema or drainage dry and intact, mild diffuse swelling that extends down to the right foot, no pitting edema. Skin: Warm dry and intact without rashes, ulcerations or petechiae, with the exception of right knee. Neuro: Alert and orientated x3, sensation to touch intact, no gross deficits noted of cranial nerves. Psych: Patient has a well-kept appearance, appropriate affect, mental status attitude thought context and judgment are appropriate for age. Objective Labs Result Diagrams: 06/05/20 11:20 06/05/20 04:00 Labs: Laboratory Results - last 24 hr 06/04/20 06/04/20 06/04/20 16:56 16:56 16:56 WBC 14.2 H RBC 2.30 L Hgb 6.5 L* Hct 19.8 L* MCV 86.0 MCH 28.2 MCHC 32.8 RDW 15.1 H Plt Count 583 H Neut % (Auto) 80.2 H Lymph % (Auto) 11.8 L Izard % (Auto) 5.8 Eos % (Auto) 1.5 L Baso % (Auto) 0.7 Neut # (Auto) 07115 H Lymph # (Auto) 1700 Izard # (Auto) 800 Eos # (Auto) 200 Baso # (Auto) 100 Percent Retic PT 11.8 INR 1.0 APTT 29 Sodium 128 L Potassium 3.5 Chloride 95 L Carbon Dioxide 29 BUN 26 H Creatinine 0.72 Estimated GFR > 60.0 BUN/Creatinine Ratio 36.1 H Glucose 149 H Lactate Calcium 9.1 Magnesium Iron TIBC % Saturation Transferrin Total Bilirubin 0.2 AST 29 ALT 46 H Alkaline Phosphatase 120 Total Creatine Kinase 25 L CK-MB (CK-2) TNP CK-MB (CK-2) Rel Index TNP Troponin I < 0.012 NT-Pro-B Natriuret Pep 496 H Total Protein 6.1 L Albumin 3.5 Globulin 2.6 Albumin/Globulin Ratio 1.3 Lipase 49 SARS-CoV-2 (PCR) Blood Type Antibody Screen Crossmatch 06/04/20 06/04/20 06/04/20 16:56 17:19 17:35 WBC RBC Hgb Hct MCV MCH MCHC RDW Plt Count Neut % (Auto) Lymph % (Auto) Izard % (Auto) Eos % (Auto) Baso % (Auto) Neut # (Auto) Lymph # (Auto) Izard # (Auto) Eos # (Auto) Baso # (Auto) Percent Retic PT INR APTT Sodium Potassium Chloride Carbon Dioxide BUN Creatinine Estimated GFR BUN/Creatinine Ratio Glucose Lactate Calcium Magnesium 1.6 Iron TIBC % Saturation Transferrin Total Bilirubin AST ALT Alkaline Phosphatase Total Creatine Kinase CK-MB (CK-2) CK-MB (CK-2) Rel Index Troponin I NT-Pro-B Natriuret Pep Total Protein Albumin Globulin Albumin/Globulin Ratio Lipase SARS-CoV-2 (PCR) Negative Blood Type A Positive Antibody Screen Negative Crossmatch See Detail 06/04/20 06/05/20 06/05/20 19:12 04:00 04:00 WBC 12.9 H RBC 2.78 L Hgb 8.1 L Hct 24.5 L MCV 88.0 MCH 29.0 MCHC 33.0 RDW 14.8 Plt Count 510 H Neut % (Auto) 72.2 Lymph % (Auto) 19.1 L Izard % (Auto) 5.8 Eos % (Auto) 2.1 Baso % (Auto) 0.8 Neut # (Auto) 9300 H Lymph # (Auto) 2500 Izard # (Auto) 800 Eos # (Auto) 300 Baso # (Auto) 100 Percent Retic PT 12.9 H INR 1.1 APTT Sodium Potassium Chloride Carbon Dioxide BUN Creatinine Estimated GFR BUN/Creatinine Ratio Glucose Lactate 1.1 Calcium Magnesium Iron TIBC % Saturation Transferrin Total Bilirubin AST ALT Alkaline Phosphatase Total Creatine Kinase CK-MB (CK-2) CK-MB (CK-2) Rel Index Troponin I NT-Pro-B Natriuret Pep Total Protein Albumin Globulin Albumin/Globulin Ratio Lipase SARS-CoV-2 (PCR) Blood Type Antibody Screen Crossmatch 06/05/20 06/05/20 06/05/20 04:00 04:00 04:00 WBC RBC Hgb Hct MCV MCH MCHC RDW Plt Count Neut % (Auto) Lymph % (Auto) Izard % (Auto) Eos % (Auto) Baso % (Auto) Neut # (Auto) Lymph # (Auto) Izard # (Auto) Eos # (Auto) Baso # (Auto) Percent Retic 5.0 H PT INR APTT Sodium 130 L Potassium 3.6 Chloride 98 Carbon Dioxide 31 BUN 19 H Creatinine 0.60 Estimated GFR > 60.0 BUN/Creatinine Ratio 31.7 H Glucose 115 H Lactate Calcium 8.4 Magnesium Iron 86 TIBC 294 % Saturation 29 Transferrin 206 Total Bilirubin 0.6 AST 22 ALT 37 H Alkaline Phosphatase 91 Total Creatine Kinase CK-MB (CK-2) CK-MB (CK-2) Rel Index Troponin I NT-Pro-B Natriuret Pep 465 H Total Protein 5.3 L Albumin 3.0 L Globulin 2.3 Albumin/Globulin Ratio 1.3 Lipase SARS-CoV-2 (PCR) Blood Type Antibody Screen Crossmatch 06/05/20 11:20 WBC RBC Hgb 9.9 L Hct 29.9 L MCV MCH MCHC RDW Plt Count Neut % (Auto) Lymph % (Auto) Izard % (Auto) Eos % (Auto) Baso % (Auto) Neut # (Auto) Lymph # (Auto) Izard # (Auto) Eos # (Auto) Baso # (Auto) Percent Retic PT INR APTT Sodium Potassium Chloride Carbon Dioxide BUN Creatinine Estimated GFR BUN/Creatinine Ratio Glucose Lactate Calcium Magnesium Iron TIBC % Saturation Transferrin Total Bilirubin AST ALT Alkaline Phosphatase Total Creatine Kinase CK-MB (CK-2) CK-MB (CK-2) Rel Index Troponin I NT-Pro-B Natriuret Pep Total Protein Albumin Globulin Albumin/Globulin Ratio Lipase SARS-CoV-2 (PCR) Blood Type Antibody Screen Crossmatch [facility] Medical History History of breast cancer Prehypertension Primary osteoarthritis of hands, bilateral Primary osteoarthritis of knees, bilateral Wrist fracture, left Surgical History History of arthroscopy of knee History of bilateral mastectomy (~2017) History of blepharoplasty (~2013) History of partial mastectomy of both breasts S/P tendon repair Family History Father Heart disease Mother Hypertension Breast cancer Brother Esophageal adenocarcinoma Social History household members: spouse Smoking Status: Former smoker alcohol intake: current Assessment & Plan Assessment & Plan narrative: 70 female with PMH of HTN, breast cancer with recent rate knee TKA with Dr. Newman, taking asa BID and ibruprofen since surgery admitted yesterday with symptomatic anemia, Hemoccult-positive stools. 1. Acute blood loss Anemia secondary to GI bleed, unclear if upper or lower, suspect upper, acute, present on admission- -patient presented with shortness of breath, chest pains, improved after transfusion. Hg 6.6 on admission, given 2 U PRBC with improvement to 8.1 and subsequently 9.9 this morning. Patient has been on motrin since her surgery as well as asa 81 mg BID. -general surgery consultation pending, suspect upper given history although cannot exclude lower. BUN elevated on admission, though mild at 26. Continue 40 mg protonix IV BID. Reportedly normal colonoscopy 3 years ago. -NPO pending general surgery recommendations regarding timing and if need for bowel prep. -continue IV fluids, NS given hyponatremia. 2. Hyponatremia, acute, present on admission -patient receiving normal saline at 100 cc/hour, will monitor electrolytes 3. Right knee pain, secondary to right TKA on 05/23/[address] Newman, acute, present on admission, condition improving. -continue conservative measures for pain and comfort, physical therapy consult. -monitoring for DVT, physical exam negative, negative Homans sign, negative chest CT for PE -hold NSAIDs. controlled for now with IV dilaudid. 4. Essential hypertension, chronic, well controlled not present on admission -hold home triameterine HCTZ for now given hyponatremia and GI bleeding. Consider alternative agent if needed given mild hyponatremia on thiazide. Code status: Full code Surrogate/plan of care: Sony Vincent spouse COVID PCR: Negative VTE prophylaxis: Contraindicated due to GI bleed, SCDs
--- NOTE | 2020-06-05 12:18 | PM.CN ---
History of Present Illness Consult details Date Patient Seen: 06/05/20 Time Patient Seen: 12:19 Chief complaint: RIGHT KNEE PAIN CHEST TIGHTNESS DIZZY NAUSEA Reason for consult: Upper GI bleed Requesting provider: Blasie Sparrow Narrative: The patient is a 70-year-old woman who recently had a knee replacement on the right. She was lightheaded and short of breath and seen a urgency room and found to be quite anemic. She had a chest angiogram to rule out PE due to her symptomatology and none was found. She was transfused and that resolved her shortness of breath and lightheadedness. For the most part. She has not had any abdominal pain. She has never had this before. She thinks her stools were dark but not necessarily black. However since her admission she has had multiple stools which have been reported to be black. Patient is not aware of having had a ulcers. She was treated for breast cancer about 3 years ago and underwent an upper and lower endoscopy for anemia but nothing was found. 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 She has had no history of jaundice. No prior abdominal procedures. Meds Home Medications and Allergies Home Medications Medication Instructions Recorded Confirmed Type acetaminophen 1,300 mg PO Q8H 05/21/20 06/04/20 History biotin 2,500 mcg PO BID 05/21/20 06/04/20 History calcium 600 mg PO BID 05/21/20 06/04/20 History cholecalciferol (vitamin D3) 25 mcg PO DAILY 05/21/20 06/04/20 History [Vitamin D3] fexofenadine 180 mg PO QPM 05/21/20 06/04/20 History gabapentin 300 mg PO 1-2XD 05/21/20 06/04/20 History multivitamin 1 tab PO DAILY 05/21/20 06/04/20 History triamterene-hydrochlorothiazid 1 - 2 cap PO DAILY 05/21/20 06/04/20 History aspirin 81 mg PO BID #20 tab 05/24/20 06/04/20 Rx docusate sodium [DOK] 100 mg PO BID #20 cap 05/24/20 06/04/20 Rx ibuprofen [Advil] 400 mg PO Q4HR #0 tab 05/24/20 06/04/20 Rx Allergies Allergy/AdvReac Type Severity Reaction Status Date / Time Sulfa (Sulfonamide Allergy Severe Tongue Verified 05/23/20 06:48 Antibiotics) swelling latex Allergy Mild Rash, Verified 05/23/20 06:48 bland skin succinylcholine AdvReac Severe Muscle Verified 05/23/20 06:48 spams for 2 days Review of Systems Review of Systems Narrative: Patient wears glasses. Denies double vision pain arise earache sore throats hearing difficulty trouble swallowing. Denies toothaches. Denies cough cold or asthma. She has been told she had a murmur when she has to run a lot. No chest pain or heart problems she is aware of. No hematemesis. No prior black or bloody bowel movements. Last colonoscopy 3 years ago. Normal. No problems with kidney stones or blood in her urine. No seizures or blackouts. Denies anxiety depression. No unusual bruising or spontaneous bleeding outside of this admission. And new skin lesions or itching. No problems with her pancreas or thyroid. She takes medication to treat hypertension Exam Vital Signs (past 8 hours): - 06/05/20 08:00 06/05/20 08:31 06/05/20 11:10 Temperature 97.8 F 98 F Pulse Rate 93 H 92 H Respiratory Rate 16 15 Blood Pressure 140/78 142/71 H Pulse Oximetry 92 92 93 06/05/20 12:08 Temperature Pulse Rate Respiratory Rate Blood Pressure Pulse Oximetry 93 Oxygen Delivery Method Room Air Oxygen Flow Rate 0 Narrative Exam Narrative: Cooperative pleasant woman in no apparent distress. Her eyes are nonicteric. Pupils wall roll reactive to light. This swelling of the lids. Neck is supple. No bruits in the neck. No nodes in the neck supraclavicular areas. Lungs are clear to auscultation without rales or rhonchi in equal percussion. Heart regular rate rhythm. She has a 2 to 3/6 systolic murmur heard best at the left sternal border without radiation into the neck. Her abdomen is mildly protuberant soft. No palpable masses or tenderness. Patient is alert and oriented x3. Speech rate and content are appropriate. Affect is prepped patient had as a recent incision over her right knee. No cellulitis appreciated. Objective Labs Result Diagrams: 06/05/20 11:20 06/05/20 04:00 Labs: Laboratory Results - last 24 hr 02/12/1506/04/20 06/04/20 16:56 16:56 16:56 WBC 14.2 H RBC 2.30 L Hgb 6.5 L* Hct 19.8 L* MCV 86.0 MCH 28.2 MCHC 32.8 RDW 15.1 H Plt Count 583 H Neut % (Auto) 80.2 H Lymph % (Auto) 11.8 L [place] % (Auto) 5.8 Eos % (Auto) 1.5 L Baso % (Auto) 0.7 Neut # (Auto) 50916 H Lymph # (Auto) 1700 [place] # (Auto) 800 Eos # (Auto) 200 Baso # (Auto) 100 Percent Retic PT 11.8 INR 1.0 APTT 29 Sodium 128 L Potassium 3.5 Chloride 95 L Carbon Dioxide 29 BUN 26 H Creatinine 0.72 Estimated GFR > 60.0 BUN/Creatinine Ratio 36.1 H Glucose 149 H Lactate Calcium 9.1 Magnesium Iron TIBC % Saturation Transferrin Total Bilirubin 0.2 AST 29 ALT 46 H Alkaline Phosphatase 120 Total Creatine Kinase 25 L CK-MB (CK-2) TNP CK-MB (CK-2) Rel Index TNP Troponin I < 0.012 NT-Pro-B Natriuret Pep 496 H Total Protein 6.1 L Albumin 3.5 Globulin 2.6 Albumin/Globulin Ratio 1.3 Lipase 49 SARS-CoV-2 (PCR) Blood Type Antibody Screen Crossmatch 06/04/20 06/04/20 06/04/20 16:56 17:19 17:35 WBC RBC Hgb Hct MCV MCH MCHC RDW Plt Count Neut % (Auto) Lymph % (Auto) [place] % (Auto) Eos % (Auto) Baso % (Auto) Neut # (Auto) Lymph # (Auto) [place] # (Auto) Eos # (Auto) Baso # (Auto) Percent Retic PT INR APTT Sodium Potassium Chloride Carbon Dioxide BUN Creatinine Estimated GFR BUN/Creatinine Ratio Glucose Lactate Calcium Magnesium 1.6 Iron TIBC % Saturation Transferrin Total Bilirubin AST ALT Alkaline Phosphatase Total Creatine Kinase CK-MB (CK-2) CK-MB (CK-2) Rel Index Troponin I NT-Pro-B Natriuret Pep Total Protein Albumin Globulin Albumin/Globulin Ratio Lipase SARS-CoV-2 (PCR) Negative Blood Type A Positive Antibody Screen Negative Crossmatch See Detail 06/04/20 06/05/20 06/05/20 19:12 04:00 04:00 WBC 12.9 H RBC 2.78 L Hgb 8.1 L Hct 24.5 L MCV 88.0 MCH 29.0 MCHC 33.0 RDW 14.8 Plt Count 510 H Neut % (Auto) 72.2 Lymph % (Auto) 19.1 L [place] % (Auto) 5.8 Eos % (Auto) 2.1 Baso % (Auto) 0.8 Neut # (Auto) 9300 H Lymph # (Auto) 2500 [place] # (Auto) 800 Eos # (Auto) 300 Baso # (Auto) 100 Percent Retic PT 12.9 H INR 1.1 APTT Sodium Potassium Chloride Carbon Dioxide BUN Creatinine Estimated GFR BUN/Creatinine Ratio Glucose Lactate 1.1 Calcium Magnesium Iron TIBC % Saturation Transferrin Total Bilirubin AST ALT Alkaline Phosphatase Total Creatine Kinase CK-MB (CK-2) CK-MB (CK-2) Rel Index Troponin I NT-Pro-B Natriuret Pep Total Protein Albumin Globulin Albumin/Globulin Ratio Lipase SARS-CoV-2 (PCR) Blood Type Antibody Screen Crossmatch 06/05/20 06/05/20 06/05/20 04:00 04:00 04:00 WBC RBC Hgb Hct MCV MCH MCHC RDW Plt Count Neut % (Auto) Lymph % (Auto) [place] % (Auto) Eos % (Auto) Baso % (Auto) Neut # (Auto) Lymph # (Auto) [place] # (Auto) Eos # (Auto) Baso # (Auto) Percent Retic 5.0 H PT INR APTT Sodium 130 L Potassium 3.6 Chloride 98 Carbon Dioxide 31 BUN 19 H Creatinine 0.60 Estimated GFR > 60.0 BUN/Creatinine Ratio 31.7 H Glucose 115 H Lactate Calcium 8.4 Magnesium Iron 86 TIBC 294 % Saturation 29 Transferrin 206 Total Bilirubin 0.6 AST 22 ALT 37 H Alkaline Phosphatase 91 Total Creatine Kinase CK-MB (CK-2) CK-MB (CK-2) Rel Index Troponin I NT-Pro-B Natriuret Pep 465 H Total Protein 5.3 L Albumin 3.0 L Globulin 2.3 Albumin/Globulin Ratio 1.3 Lipase SARS-CoV-2 (PCR) Blood Type Antibody Screen Crossmatch 06/05/20 11:20 WBC RBC Hgb 9.9 L Hct 29.9 L MCV MCH MCHC RDW Plt Count Neut % (Auto) Lymph % (Auto) [place] % (Auto) Eos % (Auto) Baso % (Auto) Neut # (Auto) Lymph # (Auto) [place] # (Auto) Eos # (Auto) Baso # (Auto) Percent Retic PT INR APTT Sodium Potassium Chloride Carbon Dioxide BUN Creatinine Estimated GFR BUN/Creatinine Ratio Glucose Lactate Calcium Magnesium Iron TIBC % Saturation Transferrin Total Bilirubin AST ALT Alkaline Phosphatase Total Creatine Kinase CK-MB (CK-2) CK-MB (CK-2) Rel Index Troponin I NT-Pro-B Natriuret Pep Total Protein Albumin Globulin Albumin/Globulin Ratio Lipase SARS-CoV-2 (PCR) Blood Type Antibody Screen Crossmatch Assessment & Plan Assessment & Plan narrative: Patient post recent surgery for right knee replacement with hypertension. She had profound anemia causing symptoms which have improved with transfusion. I have discussed EGD with the patient. Risks of bleeding, perforation discussed with her. She appears to understand wishes to proceed. I also talked to her about the possibility of aspiration and we will use the anesthesiologist and general anesthesia with intubation to protect her airway. She had a very recent black bowel movement and though and so therefore could be actively bleeding.
--- NOTE | 2020-06-05 12:34 | PM.PREOP ---
Pre-operative Note COVID-19 Result date/Date tested (Pos, Neg/Pending): 06/04/20 Interval Note History & Physical reviewed/Exam performed by Physician: Yes Changes to H&P: No
--- NOTE | 2020-06-05 16:01 | SUR.HOLD ---
Pt brought down to [facility], Dr. Torres to bedside, spoke to pt.
[2020-06-05] MEDS: LACTATED RINGERS 1,000 ML 42 ML IV (16:04)
[2020-06-05] MEDS: EPINEPHrine 1 MG/10 ML SYRINGE IV (16:45)
--- NOTE | 2020-06-05 16:52 | PM.OP.ENDO ---
Operative Date/Time/Diagnoses Date of procedure: 06/05/20 Time of procedure: 16:53 Pre-op diagnosis: Upper GI bleed Post-op diagnosis: same (Pre pyloric ulcer with clot in the base. Small amount of blood in the stomach. Proximal gastritis. Narrowed pylorus.) Procedure & Clinicians Study performed: EGD with cold biopsy and injection of epinephrine Same procedure as scheduled: Yes Indications: Determine source of upper GI bleed Surgeon: Federico Munoz Procedure Notes SCOAP/Timeout: Performed Procedure in detail: Patient was placed supine on the stretcher and underwent general endotracheal anesthesia. A bite block was inserted adjacent to the ET tube. The patient developed PSVT before doing anything further than this. Her heart rate was controlled with esmolol. Endoscope was inserted through the bite block and into the esophagus. The esophagus was normal to the GE junction. GE junction was noted at 38 cm. There was a 2 cm hiatal hernia P there is no inflammation within it. As as I entered the remainder of the stomach other was a small amount of black material in the stomach. The stomach insufflated well. The patient was noted to have a very large deep ulceration just sedation to the pyloric channel. Was somewhat misleading because the ulcer almost appeared to be the pyloric channel itself. It was not however. There was granulation tissue around this ulcer. The base was pale and there was a small amount of clot on the surface. I attempted to irrigate and suction this off of but it was adherent. I was able to cannulate through an edematous pyloric channel into the duodenum. The duodenum was normal to the 4th part. The ulcer was close enough to the pyloric channel that there was granulation tissue forming 1 of the cherry of the pyloric channel. The scope was brought back into the stomach. I chose to inject epinephrine solution all around the edge of this large ulcer. The scope was retroflexed in the stomach in the proximal stomach was noted. The small hiatal hernia was seen. There was gastritis of the cardia. I took. A few random biopsies in the antrum. I did not attempt to biopsy this ulcer. The scope was then removed after suctioning the air from the stomach. The patient tolerated the procedure well. Scope withdrawal time: Not applicable Sedation minutes: 0 (Anesthesiologist was available to intubate the patient and protect her airway. He also manage the cardiac drugs.) Findings: gastric ulcer and gastritis Specimen(s): other (Gastric antrum biopsies) Complications: none Post-procedure Recommendations: Start medication(s) (Proton pump inhibitor twice a day) and Other recommendation (Clear liquid diet for a day and a half.) Plan for aftercare: Follow-up in my office in approximately the a month want she is discharged. She will need a repeat EGD in about 3 months in order to determine if this ulcer has healed. The patient may need treated for H pylori as well. Follow up: months (One) Disposition: PACU
[2020-06-05] MEDS: LORazepam 2 MG/ML INJ 0.25 MG IV (17:25)
[2020-06-06] VITALS (11 sets, daily range): BP systolic 125–136; BP diastolic 61–88; PULSE 73–82; RESP 15–18; TEMP 36–37.5; O2SAT 94–99
[2020-06-06] MEDS: HYDROMORPHONE 0.5 MG INJ IV (03:36)
[2020-06-06 05:47] LABS: RBC Urine None Seen (0-5/HPF)
[2020-06-06 05:56] LABS: Appearance Urine UA CLEAR; Bacteria Urine Occasional (0-1); Bilirubin Urine UA NEGATIVE (NEGATIVE); Color Urine UA YELLOW; Glucose Urine UA NEGATIVE (Negative); Ketones Urine UA TRACE (NEGATIVE); Leukocyte Esterase Urine UA NEGATIVE (NEGATIVE); Nitrite Urine UA NEGATIVE (Negative); Occult Blood Urine UA NEGATIVE (Negative); Protein Urine UA NEGATIVE (Negative); Specific Gravity Urine UA 1.025 (1.000-1.035); Squamous Epithelial Cell Urine 0-1 /HPF (0-5/HPF); Urobilinogen Urine UA 0.2 E.U./dL (0.2); WBC Urine 0-1/HPF (0-5/HPF); pH Urine UA 5.5 (4.5-8.0)
[2020-06-06 05:57] LABS: Culture Indicated Urine Cult Not Indicated
[2020-06-06 08:31] LABS: Add Manual Diff / Slide Review NO; Basophils Absolute Auto 100 /uL (0-100); Basophils Percent Auto 0.7 % (0-2); Eosinophils Absolute Auto 100 /uL (0-450); Eosinophils Percent Auto 1.1 % (2-4); Hematocrit 26.1 % (36-46); Hemoglobin 8.4 g/dL (12.0-16.0); Lymphocytes Absolute Auto 1400 /uL (1100-4500); Lymphocytes Percent Auto 13.1 % (25-40); Mean Corpuscular HGB Conc 32.2 % (30-36); Mean Corpuscular Hemoglobin 28.9 PG (26-34); Mean Corpuscular Volume 89.8 fL (80-100); Monocytes Absolute Auto 700 /uL (0-900); Monocytes Percent Auto 6.6 % (3-14); Neutrophils Absolute Auto 8700 /uL (1500-7000); Neutrophils Percent Auto 78.5 % (50-75); Platelet Count 572 X10^3/uL (150-400); Red Cell Distribution Width 15.1 % (11.6-14.8); White Blood Cell Count 11.1 X10^3/uL (4.5-11.0)
[2020-06-06] MEDS: OXYCODONE IR 5 MG TABLET PO ×3 (08:40→17:22)
[2020-06-06] MEDS: DOCUSATE 100 MG CAPSULE PO ×2 (08:40→20:00)
[2020-06-06] MEDS: PANTOPRAZOLE 40 MG VIAL IV ×2 (08:40→19:39)
--- NOTE | 2020-06-06 08:58 | PT-IP ANOTE ---
Pt was in chair when arrived, pt refused PT treatment upon arrived for PT tx. FI[employer] FARMWORKER provided education of importance of mobility with therapy today and hasn't been seen with therapy since yesterday, pt verbalized understanding. Pt stated is tired, hasn't eaten much and so doesn't want to work with therapy, is going home today and has outpt PT appts set up for Thursday, will do more with them. FIELD [employer] II FARMWORKER was unable to complete therapy tx. FI[employer] FARMWORKER left room and notified nursing pt's refusal and education given to pt with her verbalized understanding.
--- NOTE | 2020-06-06 10:30 | DI.US.S_ITS ---
PROCEDURE: US PERIPH VENOUS LOW EXTREM RT INDICATIONS: Clinical concern for DVT TECHNIQUE: Real-time imaging, as well as color and pulse Doppler interrogation, were performed of the lower extremity deep veins from the inguinal ligament to the popliteal fossa. COMPARISON: None. FINDINGS: The common femoral, femoral and popliteal veins are normally compressible, and free of intraluminal thrombus. Color and pulse Doppler demonstrate normal phasic intraluminal flow. There is normal augmentation response to distal compression maneuver. Note is made of soft tissue edema involving the calf and dorsal foot. IMPRESSION: Negative for deep venous thrombosis. Dictated by: Zac Taylor M.D. on 06/06/2020 at 10:05 Approved by: Zac Taylor M.D. on 06/06/2020 at 10:07
--- NOTE | 2020-06-06 11:53 | PT.IPTN ---
Current Diagnoses Melena (06/04/20) Surgery Performed Operation Date: 06/05/20 16:00 Actual Procedures p Esophagogastroduodenoscopy WITH BIOPSY - Federico Munoz MD Physical Therapy Treatment Note M2 PT-IP Current Condition Start: 06/05/20 08:50 Freq: NEEDED Status: Active Protocol: Document 06/05/20 11:29 AW (Rec: 06/05/20 12:36 AW [id number]) Physical Therapy Current Condition Current Condition Evaluation Date 06/05/20 Treatment Diagnosis GI bleed; recent R TKA; difficulty in walking Onset Date 06/04/20 Weight Bearing Status Weight Bearing Status Weight Bear as Tolerated M3 PT-IP Subjective Start: 06/05/20 08:50 Freq: NEEDED Status: Active Protocol: Document 06/06/20 11:55 SP (Rec: 06/06/20 12:38 SP [id number]) Subjective Physical Therapy Visit Type Type Treatment Note Visit Start Time 11:20 Visit Stop Time 11:53 Total Visit Minutes 33 Notes Hgb/HCT was 8.4/26.1. was in room, completed caregiver training and provided assist needed throughout tx. Number of DRY PASTE SUPERVISOR Visits 1 Physical Therapy Visit Comments Patient Comments Pt stated upon arrival, I asked nursing to have you come back because I found out from physician that will be staying another day and wanted another chance to work with therapy but preferred that DRY PASTE SUPERVISOR 's student attend. Patient Goals Return home with to assist. Therapy Pain Assessment Pain When Pain Assessed During Mobility Pain Present Pain Present Pain Reported Location Right Knee Scale Used some pain but no scale rating given or limited her movement Description With Movement Pain Management Techniques Apply Cold,Re-positioning, Timing of Activity with Medications M4 PT-IP Mobility and Gait Start: 06/05/20 08:50 Freq: NEEDED Status: Active Protocol: Document 06/06/20 11:55 SP (Rec: 06/06/20 12:38 SP [id number]) PT-Bed Mobility Assessment Supine to Sit Supine to Sit Standby Assistance Sit to Supine Sit to Supine Standby Assistance Scooting Scooting to Edge of Bed Standby Assistance Scooting Up and Down in Bed Standby Assistance PT-Transfer Assessment Sit to and From Stand Sit to and from Stand Standby Assistance Equipment Transfer Assistive Device Gait Belt,Front Wheeled Walker Orthotic/Prosthetic Devices or Brace: No Transfers Transfer Destination Bed Transfer Technique Pt ambulated using FWW Transfer Ability Level of Assist Standby Assistance,Use of Upper Extremities Comments Mobility Comments Pt was inclined in bed when arrived, present sitting in chair. LR R then UE support to sit, HOB flat, UE support RLE to EOB, scoot to EOB sBA. donned gait belt, sit>stand BUE support sBA w/FWW. Pt ambulated further distance into hallway 2 laps around nursing station and returned to bed sit>supine SBA with BUE support and scoot up in bed self. Reviewed post-op ther ex for R knee with good recall and importance for circulation and mobility approx 0-90 deg flexion using strap for support. Pt requested trendelenburg positioning to elevated RLE per physician instruction and discussed propping pillows with knee straight at home for LE elevated above heart awareness with verbal confirmation. Pt had call light and all needs in reach. Gait Assessment Gait Gait Assistance Required: Standby Assistance Distance (Feet) 440 Able to Maintain Weight Bearing Status Yes During Gait Assistive Devices Assistive Device Gait Belt,Front Wheeled Walker Orthotic/Prosthetic Devices or Brace: No Gait Deviations General Gait Pattern Antalgic,Decreased Stride Length,Decreased Feet Clearance Factors Limiting Gait Function Factors Limiting Gait Function Decreased Strength,Limited Range of Motion,Pain,Poor Balance Comments Gait Comments Gait improved phases improved but requires occasional cuing for R knee flexion during swing phase step over step using FWW, SBA and increased distance from last tx. Stair Climbing Assessment Comments Stair Climbing Comments Not assessed, no stairs at home. PT-Balance Assessment Sitting Balance and Reactions Static Sitting Balance Ability Normal Dynamic Sitting Balance Ability Normal Standing Balance and Reactions Static Standing Balance Ability Good Dynamic Standing Balance Ability Good Device Used FWW M5 PT-IP Objective Assessments Start: 06/05/20 08:50 Freq: NEEDED Status: Active Protocol: Document 06/05/20 11:29 AW (Rec: 06/05/20 12:36 AW [id number]) Orientation Orientation/Cognition Level of Alertness Alert Orientation Name,Day of Week,Place, Situation Language Function Ability No Deficits Noted Safety Awareness Understands Safety Issues Memory Description No Deficits Noted Gross Range of Motion Lower Extremity ROM Assessment Right Impaired Impairments knee flexion <110 degrees Strength Lower Extremity Strength Assessment Right Impaired Hip 4-/5 Knee 4-/5 Sensation Assessment Sensation Gross Sensation WNL M6 PT-IP Treatment Start: 06/05/20 08:50 Freq: NEEDED Status: Active Protocol: Document 06/06/20 11:55 SP (Rec: 06/06/20 12:38 SP [id number]) Physical Therapy Treatment Exercises Exercises Ankle Pumps,Gluteal Sets,Quad Sets,Heel Slides,Seated Knee Flexion/Extension Education Education Provided Safety Other Treatments Other Treatment Performed Provided education on plan of care. M7 PT-IP Assessment and Plan Start: 06/05/20 08:50 Freq: NEEDED Status: Active Protocol: Document 06/06/20 11:55 SP (Rec: 06/06/20 12:38 SP [id number]) PT Summary Assessment and Plan Potential Rehabilitation Potential Good Status of Condition at Evaluation Evolving Summary Impairments Pain,ROM,Strength,Balance,Bed Mobility,Transfers,Gait, Activity Tolerance Progress Towards Goals Progressing Toward Goals,Slow Progress due to Pain,Slow Progress due to Activity Tolerance Assessment Summary Pt is requiring SBA with all mobilities with FWW on evaluation which appears to be consistent with her recent baseline with SBA provided PRN. Therapy will follow for prevention of deterioration in the context of new anemia and possible GI bleed. Anticipate pt will be safe to discharge home once medically cleared and has outpt appts set up to continue R knee rehab. DRY PASTE SUPERVISOR discussed with patient, she is able to go for walks with nursing staff between PT tx, with understanding. Goals Bed Mobility Goal Independent Transfer Goal Independent,Front Wheeled Walker Gait Goal Independent,Front Wheel Walker Gait Distance 200 Frequency of Treatment Frequency Of Treatment Once a Day Treatment Plan Physical Therapy Treatment Plan Bed Mobility Training,Transfer Training,Gait Training, Therapeutic Exercise,Balance Retraining,Discharge Planning, Hot or Cold Pack,Neuromuscular Re-ed,Manual Therapy Other Recommendations and Next Treatment Endurance gait, LE ex. Focus Recommendations To Nursing Amount of Assist Needed Standby Assistance Discharge Recommendations PT Discharge Recommendations Home with Assistance, Outpatient PT Other Discharge Recommendations home with resumed outpatient PT Transportation Needs at Discharge Private Vehicle
--- NOTE | 2020-06-06 12:39 | PC.NURSE ---
Assess- Patient medicated with 5mg of po oxycodone, helpful with discomfort. Denies nausea, or abdominal pain. Up with 1 pa and working with pt. BT +x4. Resting and visiting with her .
--- NOTE | 2020-06-06 16:31 | P.PN_ITS ---
Subjective Subjective Date Patient Seen: 06/06/20 Interval history: Patient is 70 female with PMH of HTN, breast cancer, recent right knee TKA with Dr. Newman taking asa and NSAID BID admitted with acute upper GI bleed. EGD showed gastric ulcer with clot. Patient is on IV Protonix b.i.d. and clear liquid diet and does not appear to have ongoing bleeding. Patient with complaint of right calf pain. Venous duplex ultrasound was negative for DVT. Exam Vital Signs (past 8 hours): - 06/06/20 09:35 06/06/20 11:51 06/06/20 12:20 Temperature 96.8 F L 97.4 F L Pulse Rate 78 76 Respiratory Rate 16 15 Blood Pressure 131/61 130/71 Pulse Oximetry 97 96 97 06/06/20 15:30 Temperature 98.0 F Pulse Rate 78 Respiratory Rate 16 Blood Pressure 125/64 Pulse Oximetry 98 Oxygen Delivery Method Room Air Oxygen Flow Rate 0 Narrative Exam Narrative: General: Alert and pleasant female in no acute distress Objective Labs Result Diagrams: 06/06/20 07:56 06/05/20 04:00 Labs: Laboratory Results - last 24 hr 06/06/20 06/06/20 05:45 07:56 WBC 11.1 H RBC 2.90 L Hgb 8.4 L Hct 26.1 L MCV 89.8 MCH 28.9 MCHC 32.2 RDW 15.1 H Plt Count 572 H Neut % (Auto) 78.5 H Lymph % (Auto) 13.1 L [place] % (Auto) 6.6 Eos % (Auto) 1.1 L Baso % (Auto) 0.7 Neut # (Auto) 8700 H Lymph # (Auto) 1400 [place] # (Auto) 700 Eos # (Auto) 100 Baso # (Auto) 100 Urine Color Yellow Urine Appearance Clear Urine pH 5.5 Ur Specific [place] 1.025 Urine Protein Negative Urine Glucose (UA) Negative Urine Ketones Trace H Urine Occult Blood Negative Urine Nitrate Negative Urine Bilirubin Negative Urine Urobilinogen 0.2 Ur Leukocyte Esterase Negative Urine RBC None seen Urine WBC 0-1/hpf Ur Squamous Epith Cells 0-1 /hpf Urine Bacteria Occasional (0-1) Ur Culture Indicated? Cult not indicated PFSH Medical History History of breast cancer Prehypertension Primary osteoarthritis of hands, bilateral Primary osteoarthritis of knees, bilateral Wrist fracture, left Surgical History History of arthroscopy of knee History of bilateral mastectomy (~2017) History of blepharoplasty (~2013) History of partial mastectomy of both breasts S/P tendon repair Family History Father Heart disease Mother Hypertension Breast cancer Brother Esophageal adenocarcinoma Social History household members: spouse Smoking Status: Former smoker alcohol intake: current Assessment & Plan Assessment & Plan narrative: 70 female with PMH of HTN, breast cancer with recent right knee TKA with Dr. Newman, taking asa BID and ibruprofen since s urgery admitted yesterday with symptomatic anemia, Hemoccult-positive stools. 1. Acute blood loss anemia -GI bleed secondary to aspirin and ibuprofen postop knee replacement -hemoglobin stable status post 2 units PRBC -EGD showed gastric ulcer with clot, random antrum biopsies obtained and pathology pending -continue IV Protonix b.i.d., clear liquid diet -home tomorrow on p.o. Protonix if no sign of rebleeding -follow-up [address] Munoz 2. Hyponatremia, acute, present on admission -admit sodium 128, improved to 130 on normal saline -Hep-Lock IV 3. Right knee pain, secondary to right TKA on 05/23/[address] Newman, acute, present on admission, condition improving. -continue conservative measures for pain and comfort, physical therapy consult. -oxycodone as needed -RLE venous duplex ultrasound was negative for DVT 4. Essential hypertension, chronic, well controlled -hold home triameterine HCTZ for now given hyponatremia and GI bleeding. Consider alternative agent if needed given mild hyponatremia on thiazide. Code status: Full code Surrogate/plan of care: Sony Vincent spouse COVID PCR: Negative VTE prophylaxis: Contraindicated due to GI bleed, SCDs
[2020-06-07] VITALS: BP 150/74; PULSE 82; RESP 16; TEMP 37.1; O2SAT 96
[2020-06-07] MEDS: OXYCODONE IR 5 MG TABLET PO ×4 (00:25→13:50)
[2020-06-07] MEDS: CALCIUM CARBONATE 500 MG TAB PO ×2 (00:25→04:34)
[2020-06-07 03:00] VITALS: O2SAT 97
[2020-06-07 03:52] VITALS: BP 139/77; PULSE 92; RESP 16; TEMP 37.1; O2SAT 93
[2020-06-07 06:27] LABS: Add Manual Diff / Slide Review NO; Basophils Absolute Auto 100 /uL (0-100); Basophils Percent Auto 0.8 % (0-2); Eosinophils Absolute Auto 200 /uL (0-450); Eosinophils Percent Auto 2.6 % (2-4); Hematocrit 24.1 % (36-46); Hemoglobin 7.9 g/dL (12.0-16.0); Lymphocytes Absolute Auto 1100 /uL (1100-4500); Mean Corpuscular HGB Conc 32.8 % (30-36); Mean Corpuscular Hemoglobin 29.4 PG (26-34); Mean Corpuscular Volume 89.8 fL (80-100); Monocytes Absolute Auto 700 /uL (0-900); Monocytes Percent Auto 8.4 % (3-14); Neutrophils Absolute Auto 5900 /uL (1500-7000); Neutrophils Percent Auto 74.2 % (50-75); Platelet Count 550 X10^3/uL (150-400); Red Blood Cell Count 2.68 X10^6/uL (4.0-5.2); Red Cell Distribution Width 15.7 % (11.6-14.8)
[2020-06-07 07:26] VITALS: BP 143/78; PULSE 77; RESP 16; TEMP 36.7; O2SAT 94
[2020-06-07] MEDS: PANTOPRAZOLE 40 MG VIAL IV (09:09)
[2020-06-07] MEDS: DOCUSATE 100 MG CAPSULE PO (09:09)
--- NOTE | 2020-06-07 10:15 | PT.IPTN ---
Current Diagnoses Melena (06/04/20) Surgery Performed Operation Date: 06/05/20 16:00 Actual Procedures p Esophagogastroduodenoscopy WITH BIOPSY - Federico Munoz MD Physical Therapy Treatment Note M2 PT-IP Current Condition Start: 06/05/20 08:50 Freq: NEEDED Status: Active Protocol: Document 06/05/20 11:29 AW (Rec: 06/05/20 12:36 AW [id number]) Physical Therapy Current Condition Current Condition Evaluation Date 06/05/20 Treatment Diagnosis GI bleed; recent R TKA; difficulty in walking Onset Date 06/04/20 Weight Bearing Status Weight Bearing Status Weight Bear as Tolerated M3 PT-IP Subjective Start: 06/05/20 08:50 Freq: NEEDED Status: Active Protocol: Document 06/07/20 09:50 SP (Rec: 06/07/20 11:28 SP [id number]) Subjective Physical Therapy Visit Type Type Treatment Note Visit Start Time 09:50 Visit Stop Time 10:15 Total Visit Minutes 25 Notes Hgb/Hct: 7.9/21.4, RBC: 15.7 CHLOE Iyer attended and provided assist and instruction to pt and RADIO REPAIRER DOMESTIC when needed throughout tx. Pt agreeable to [place] attending tx today. Number of RADIO REPAIRER DOMESTIC Visits 2 Physical Therapy Visit Comments Patient Comments Pt reports 4/10 pain R knee during mobility but mainly tired. Patient Goals Return home with to assist. Therapy Pain Assessment Pain When Pain Assessed During Mobility Pain Present Pain Present Pain Reported Location Right Knee Intensity 4 Scale Used Numeric (0 - 10) Description With Movement Pain Management Techniques Apply Cold,Re-positioning, Timing of Activity with Medications M4 PT-IP Mobility and Gait Start: 06/05/20 08:50 Freq: NEEDED Status: Active Protocol: Document 06/07/20 09:50 SP (Rec: 06/07/20 11:28 SP [id number]) PT-Bed Mobility Assessment Supine to Sit Supine to Sit Standby Assistance Sit to Supine Sit to Supine Standby Assistance Scooting Scooting to Edge of Bed Standby Assistance Scooting Up and Down in Bed Standby Assistance PT-Transfer Assessment Sit to and From Stand Sit to and from Stand Standby Assistance Equipment Transfer Assistive Device Gait Belt,Front Wheeled Walker Orthotic/Prosthetic Devices or Brace: No Transfers Transfer Destination Bed Transfer Technique Pt ambulated using FWW Transfer Ability Level of Assist Standby Assistance,Use of Upper Extremities Comments Mobility Comments Pt was seated in chair when arrived. Required assist to lower chair leg rest. sit> stand SBA using FWW, educated patient hospital policy to utilize a gait belt for safety prior to standing with patient verbalized understanding and allowed gait belt donning. SPT chair > bed with cuing for using FWW for UE support and not bed to allow tall posture and knee ROM pivoting. sit>supine with 1 UE to assist RLE into bed. PT able to complete RLE positioning self. Reviewed LE exercises to assist progress ROM usign gait belt: heel slide, ankle pump, quad sets, SAQ x5 reps each. Supine<> sit <>standing SBA then ambulated into hallway around nursing station approx 240 ft total then returned to bed. Pt requested BLE elevated with CP applied for swelling control and pain. Pt had call light, bed alarmed and all needs in reach before left. Gait Assessment Gait Gait Assistance Required: Standby Assistance Distance (Feet) 240 Able to Maintain Weight Bearing Status Yes During Gait Assistive Devices Assistive Device Gait Belt,Front Wheeled Walker Orthotic/Prosthetic Devices or Brace: No Gait Deviations General Gait Pattern Antalgic,Decreased Stride Length,Decreased Feet Clearance Factors Limiting Gait Function Factors Limiting Gait Function Decreased Strength,Limited Range of Motion,Pain Comments Gait Comments Pt continues to require cuing for increased R knee flexion and foot clearance during gait to improve normalizing gait swing through phase step over step, improvement with excentuation of R knee flexion and heel toe as distance progressed. Stair Climbing Assessment Comments Stair Climbing Comments Not assessed, no stairs at home. PT-Balance Assessment Sitting Balance and Reactions Static Sitting Balance Ability Normal Dynamic Sitting Balance Ability Normal Standing Balance and Reactions Static Standing Balance Ability Normal Dynamic Standing Balance Ability Good Device Used FWW M5 PT-IP Objective Assessments Start: 06/05/20 08:50 Freq: NEEDED Status: Active Protocol: Document 06/05/20 11:29 AW (Rec: 06/05/20 12:36 AW [id number]) Orientation Orientation/Cognition Level of Alertness Alert Orientation Name,Day of Week,Place, Situation Language Function Ability No Deficits Noted Safety Awareness Understands Safety Issues Memory Description No Deficits Noted Gross Range of Motion Lower Extremity ROM Assessment Right Impaired Impairments knee flexion <110 degrees Strength Lower Extremity Strength Assessment Right Impaired Hip 4-/5 Knee 4-/5 Sensation Assessment Sensation Gross Sensation WNL M6 PT-IP Treatment Start: 06/05/20 08:50 Freq: NEEDED Status: Active Protocol: Document 06/07/20 09:50 SP (Rec: 06/07/20 11:28 SP [id number]) Physical Therapy Treatment Exercises Exercises Ankle Pumps,Gluteal Sets,Quad Sets,Heel Slides,Straight Leg Raises,Short Arc Quads,Seated Knee Flexion/Extension Knee ROM Measurement 90 deg w/ use of strap, cued knee with toe alignment Education Education Provided Safety Other Treatments Other Treatment Performed Reviewed manual and more comforted self retro massage and elevation when in supine to assist swelling return. M7 PT-IP Assessment and Plan Start: 06/05/20 08:50 Freq: NEEDED Status: Active Protocol: Document 06/07/20 09:50 SP (Rec: 06/07/20 11:28 SP [id number]) PT Summary Assessment and Plan Potential Rehabilitation Potential Good Status of Condition at Evaluation Evolving Summary Impairments Pain,ROM,Strength,Balance,Bed Mobility,Transfers,Gait, Activity Tolerance Progress Towards Goals Progressing Toward Goals,Slow Progress due to Pain,Slow Progress due to Medical Issues ,Slow Progress due to Activity Tolerance Assessment Summary Pt is requiring SBA with all mobilities with FWW. Pt has more awareness of R knee flexion ROM during gait today. Pt is ok to return home with family to assist her when medically stable and has appts already set up with outpt PT. Goals Bed Mobility Goal Independent Transfer Goal Independent,Front Wheeled Walker Gait Goal Independent,Front Wheel Walker Gait Distance 200 Frequency of Treatment Frequency Of Treatment Once a Day Treatment Plan Physical Therapy Treatment Plan Bed Mobility Training,Transfer Training,Gait Training, Therapeutic Exercise,Balance Retraining,Discharge Planning, Hot or Cold Pack,Neuromuscular Re-ed,Manual Therapy Other Recommendations and Next Treatment Gait quality phases w/ FWW, LE Focus ex to improve ROM. Recommendations To Nursing Amount of Assist Needed Standby Assistance Discharge Recommendations PT Discharge Recommendations Home with Assistance, Outpatient PT Other Discharge Recommendations home with resumed outpatient PT Transportation Needs at Discharge Private Vehicle
[2020-06-07 11:10] VITALS: BP 129/65; PULSE 78; RESP 16; TEMP 36.3; O2SAT 98
--- NOTE | 2020-06-07 12:14 | PC.NURSE ---
Addendum entered by Summer Klein R.N. 06/07/20 13:36: Patient education given regarding follow up appointment and medications. bedside. Patient and spouse verbalized understanding. IV removed, patient tolerated. Patient discharged via wheelchair with aide assist. Original Note: Patient A/O x 4, up with walker and SBA to the chair. Voiding in restroom, eating independently. C/O pain in right knee and ankle, PRN Oxy 5 mg administered. Pulses palpable and equal bilat. 1+ edema noted in RLE, incision approximated, [employer]. Scant dry drainage noted. Patient denies dizziness, lightheadedness, chest pain or nausea. Showered with husbands assist. IV in right AC patent, saline locked at this time. Call light in reach.
--- NOTE | 2020-06-07 18:21 | P.DS_ITS ---
History of Present Illness History of Present Illness Chief complaint: RIGHT KNEE PAIN CHEST TIGHTNESS DIZZY NAUSEA Narrative: Patient is a 70-year-old female Brooke Vincent, who had a right TKA on 05/23/[address] Newman. Does have a prior history of breast cancer resulting in a total bilateral mastectomy and subsequent neuropathy of chest wall, and hypertension. Patient presented to the emergency room complaining of right knee pain, chest tightness, dizzy and some nausea. She does have right lower extremity swelling but she thinks that this is improving. Does have bruising around the right knee. Has had some dark colored stools. Has been taking all of her postoperative medications. Patient had a positive Hemoccult in ER. Upon admit patient presented with a benign abdominal exam, Hemoccult positive, afebrile. Chest CT negative for PE, pt was anemic and transfuse 2 units of packed red blood cells was began in ER. Dr. Sparrow felt that the patient's postop right surgical knee was not involved, and the patient demonstrated no s/s of peripheral DVT and was not involved in patient's presentation and so Consult Dr. Munoz with General surgery who requests the patient be NPO after midnight and stated he will scope her tomorrow. Upon admission patient was complaining of continued dizziness when up with activity, continued nausea, indigestion and epigastric discomfort that has been present since her surgery. Patient denies chest pain or shortness of breath at rest. Patient to be admitted for anemia secondary to lower GI bleed, hyponatremia. Patient's vital signs upon admit temp 99.5?, BP 133/67, HR 88, RR 14, 97% on room air. WBC 14.2, HGB 6.5, HCT 19.8, PLT 583, sodium 128, chloride 95, BUN 26, glucose 149, ALT 46, BUN creatinine ratio 36.1 troponin negative, proBNP 496, lipase negative. Chest x-ray demonstrated no acute cardiopulmonary abnormalities, EKG normal sinus rhythm, ventricular rate 88, without ST or T- wave changes. Discharge Providers Provider Date of admission: 06/04/20 19:34 Discharge Date: 06/07/20 Primary care physician: Kevin Mascorro MD Consults: 06/04/20 19:24 Consult to General Surgery Stat Comment: Consulting Provider: Federico Munoz Reason for consultation: GI bleed Has provider been notified: Yes 06/04/20 19:48 Consult to Discharge Planning Routine Comment: Consult to Occupational Therapy Evaluate & Treat Comment: Physician Instructions: Evaluate and treat Consult to Physical Therapy Evaluate & Treat Comment: Physician Instructions: Evaluate and Treat Discharge provider: Horace Ford MD Summary Hospital Course Discharge Diagnosis: 1. Acute blood loss anemia secondary to gastric ulcer 2. Acute hyponatremia, prerenal 3. Recent right total knee replacement 4. Essential hypertension 5. History of breast malignancy Patient was treated for acute upper GI bleed. She has been on aspirin and ibuprofen postop knee replacement. Dr. Munoz consulted and performed EGD which showed a pre-pyloric gastric ulcer with overlying clot. Random biopsies of the antrum were obtained but the ulcer itself was not biopsied. Patient was transfused 2 units PRBC and treated with IV Protonix. She has no signs of rebleeding. She is discharged on Protonix b.i.d. with instructions to follow-up with Dr. Munoz in 30 days. She will need antibiotic course if pathology shows H pylori. Additionally she was taken off aspirin and ibuprofen and will take Tylenol as needed for mild pain and has hydrocodone tablets at home she can take for more moderate to severe postop pain. Status at Discharge Cognitive/behavioral status at discharge: oriented Functional status at discharge: independent ambulation Overall status at discharge: patient is progressing back to baseline Time Spent with Patient Time spent: Greater than 30 minutes Exam Vital Signs (past 8 hours): - 06/07/20 11:10 Temperature 97.4 F L Pulse Rate 78 Respiratory Rate 16 Blood Pressure 129/65 Pulse Oximetry 98 Oxygen Delivery Method Room Air Oxygen Flow Rate 0 Objective Labs Result Diagrams: 06/07/20 06:07 06/05/20 04:00 Labs: Laboratory Results - last 24 hr 06/07/20 06:07 WBC 8.0 RBC 2.68 L Hgb 7.9 L Hct 24.1 L MCV 89.8 MCH 29.4 MCHC 32.8 RDW 15.7 H Plt Count 550 H Neut % (Auto) 74.2 Lymph % (Auto) 14.0 L [place] % (Auto) 8.4 Eos % (Auto) 2.6 Baso % (Auto) 0.8 Neut # (Auto) 5900 Lymph # (Auto) 1100 [place] # (Auto) 700 Eos # (Auto) 200 Baso # (Auto) 100 PFSH Medical History History of breast cancer Prehypertension Primary osteoarthritis of hands, bilateral Primary osteoarthritis of knees, bilateral Wrist fracture, left Surgical History History of arthroscopy of knee History of bilateral mastectomy (~2017) History of blepharoplasty (~2013) History of partial mastectomy of both breasts S/P tendon repair Family History Father Heart disease Mother Hypertension Breast cancer Brother Esophageal adenocarcinoma Social History household members: spouse Smoking Status: Former smoker alcohol intake: current Discharge Plan Discharge Plan Patient Disposition: Home Discharge orders & Medications Prescriptions: New pantoprazole 40 mg tablet,delayed release (DR/EC) 40 mg PO BID Qty: 60 RF: 0 Continued triamterene-hydrochlorothiazid 37.5-25 mg capsule 1 - 2 cap PO DAILY RF: 0 gabapentin 300 mg capsule 300 mg PO 1-2XD RF: 0 multivitamin Tablet 1 tab PO DAILY RF: 0 calcium 600 mg Capsule 600 mg PO BID RF: 0 fexofenadine 180 mg Tablet 180 mg PO QPM RF: 0 acetaminophen 650 mg Tablet Extended Release 1,300 mg PO Q8H RF: 0 cholecalciferol (vitamin D3) [Vitamin D3] 25 mcg (1,000 unit) Tablet 25 mcg PO DAILY RF: 0 biotin 2,500 mcg Capsule 2,500 mcg PO BID RF: 0 docusate sodium [DOK] 100 mg Capsule 100 mg PO BID Qty: 20 RF: 0 Discontinued aspirin 81 mg Tablet,Delayed Release (Dr/Ec) 81 mg PO BID Qty: 20 RF: 0 ibuprofen [Advil] 200 mg Tablet 400 mg PO Q4HR Qty: 0 RF: 0 Follow up/Referrals: Kevin Mascorro MD [Primary Care Provider] - Federico Munoz MD [Physician] - 1 Month Diet/Activity/Treatments Diet: Diet as Tolerated Visit Report/Discharge Packet Instructions: DI for Gastroesophageal Reflux Disease (GERD), DI for Gastric Ulcer Discharge Data Primary Care Provider: Kevin Mascorro
--- NOTE | 2020-06-08 15:20 | CM.DPC ---
DCP: continued: late entry for 06/07. Case received and discussed in Team Rounds. EMR reviewed. Pt was ok'd for d/c to home as per plan and she left in company of her at 1300. She expressed no concerns re the d/c to home to the care team members.
== END 2020-06-07 14:10 | disposition home or self-care (01) | DRG 378 ==
LOC: ED 19:24 → AC 19:49
PROVIDERS: Internal Medicine; Specialist; Admitting Provider Nurse Practitioner Family; Emergency Provider Emergency Medicine; PCP Family Medicine; Referring Provider Emergency Medicine; Visit Provider Nurse Practitioner Family
PROC: 0DJ08ZZ Inspection of Upper Intestinal Tract, Via Natural or Artificial Opening Endoscopic (ICD-10-PCS; CPT 43235; principal; 2020-06-05 16:00)
DX: K25.4 Chronic or unspecified gastric ulcer with hemorrhage (principal); D62 Acute posthemorrhagic anemia; E87.1 Hypo-osmolality and hyponatremia; I47.1 Supraventricular tachycardia; K29.71 Gastritis, unspecified, with bleeding; I10 Essential (primary) hypertension; Z98.890 Other specified postprocedural states; Z96.651 Presence of right artificial knee joint; Z85.3 Personal history of malignant neoplasm of breast; Z87.891 Personal history of nicotine dependence; Z20.822 Contact with and (suspected) exposure to COVID-19
CPT/HCPCS: 36415; 36430; 43239; 71045; 71275; 80053; 81001; 82550; 83540; 83550; 83605; 83690; 83735; 83880; 84484; 85014; 85018; 85025; 85045; 85610; 85730; 86850; 86900; 86901; 87635; 93005; 93010; 93971; 94760; 97110; 97116; 97161; 97530; 99232; 99283; 99284; C9803; P9016; C9113; J0171; J1170; J2060; J2405; J2704; J2710

== ENCOUNTER 2020-06-27 10:15 | Emergency (ER) | payer OTHER, SELFPAY ==
[2020-06-12 13:47] VITALS: BMI 28.3
[2020-06-27] VITALS (8 sets, daily range): BP systolic 117–162; BP diastolic 59–81; PULSE 70–99; RESP 14–21; TEMP 36.6; O2SAT 91–98; BMI 28.3
--- NOTE | 2020-06-27 10:47 | ED.GIBLEED ---
HPI - GI Bleed General Chief complaint: GI Bleed Stated complaint: Might be Bleeding Internally again. Per her DrBradford Time Seen by Provider: 06/27/20 10:20 Source: patient Mode of arrival: Ambulatory Limitations: no limitations History of Present Illness HPI Narrative: The patient is a 70-year-old female with recent history of a GI bleed and anemia. She was found to have a and had hemoglobin 6.5 and hematocrit 19.8. She received blood transfusions. Today she is feeling dizzy lightheaded and short of breath when she gets up in the mornings. She has been checking her stool at home to see if there is any blood she is using stick in rubbing it on a towel she has not noted any blood but her stools do seem to be multi colored sometime started sometimes light. She is having some mild epigastric pain no nausea vomiting or chest pain. She called her primary care physician who recommended she come to the emergency department for further evaluation Related Data Home Medications Medication Instructions Recorded Confirmed acetaminophen 1,300 mg PO Q8H 05/21/20 06/04/20 biotin 2,500 mcg PO BID 05/21/20 06/04/20 calcium 600 mg PO BID 05/21/20 06/04/20 cholecalciferol (vitamin D3) 25 mcg PO DAILY 05/21/20 06/04/20 [Vitamin D3] fexofenadine 180 mg PO QPM 05/21/20 06/04/20 gabapentin 300 mg PO 1-2XD 05/21/20 06/04/20 multivitamin 1 tab PO DAILY 05/21/20 06/04/20 triamterene-hydrochlorothiazid 1 - 2 cap PO DAILY 05/21/20 06/04/20 Previous Rx's Medication Instructions Recorded docusate sodium [DOK] 100 mg PO BID #20 cap 05/24/20 pantoprazole 40 mg PO BID #60 tab 06/07/20 Allergies Allergy/AdvReac Type Severity Reaction Status Date / Time Sulfa (Sulfonamide Allergy Severe Tongue Verified 05/23/20 06:48 Antibiotics) swelling latex Allergy Mild Rash, Verified 05/23/20 06:48 bland skin succinylcholine AdvReac Severe Muscle Verified 05/23/20 06:48 spams for 2 days Review of Systems Review of Systems ROS Unobtainable: All systems reviewed & are unremarkable except as noted in HPI and below Constitutional Constitutional: Denies chills, Denies fever(s), Denies frequent falls, Denies headache(s), Denies lethargy and Denies weakness Eyes Eyes: Denies change in vision, Denies eye discharge, Denies irritation and Denies loss of vision ENT Ears, Nose, Mouth, and Throat: Reports dizziness and Denies headache(s) Cardiovascular Cardiovascular: Denies chest pain, Denies syncope, Denies irregular heart rhythm, Denies lightheadedness, Denies palpitations, Reports dyspnea on exertion and Denies orthopnea Respiratory Respiratory: Reports dyspnea on exertion Gastrointestinal Gastrointestinal: Reports as per HPI Musculoskeletal Musculoskeletal: Denies back pain and Denies myalgias Integumentary/Breasts Skin/Breast: Denies pruritus, Denies erythema, Denies rash and Denies wounds Neurologic Neurologic: Denies confusion, Reports dizziness, Denies syncope, Denies frequent falls, Denies headache(s), Denies loss of vision and Denies weakness Psychiatric Psychiatric: Denies confusion Endocrine Endocrine: Denies palpitations Patient History Medical History History of breast cancer Prehypertension Primary osteoarthritis of hands, bilateral Primary osteoarthritis of knees, bilateral Wrist fracture, left Surgical History History of arthroscopy of knee History of bilateral mastectomy (~2018) History of blepharoplasty (~2013) History of partial mastectomy of both breasts S/P tendon repair Family History Father Heart disease Mother Hypertension Breast cancer Brother Esophageal adenocarcinoma Social History household members: spouse Smoking Status: Former smoker alcohol intake: current Smoking Status: Former smoker alcohol intake frequency: a few times a week Substance Use Type: does not use Exam Initial Vital Signs Initial Vital Signs: Vital Signs Temperature 97.9 F 06/27/20 10:18 Pulse Rate 80 06/27/20 10:18 Respiratory Rate 18 06/27/20 10:18 Blood Pressure 162/81 H 06/27/20 10:18 Pulse Oximetry 97 06/27/20 10:18 GENERAL: Well-appearing, well-nourished and in no acute distress. HEENT: Head atraumatic,EOMI, pupils reactive, face symmetric, moist mucous membranes CARDIOVASCULAR: Regular rate and rhythm without murmurs, rubs or gallops. RESPIRATORY: Breath sounds equal bilaterally, no wheezes rales or rhonchi. ABDOMEN: Soft, mild epigastric tenderness negative Carr sign no guarding or rebound RECTAL: No stool, nontender EXTREMITIES: Normal range of motion, no clubbing or edema. Neurovascularly intact NEUROLOGICAL: Alert and oriented x4.Normal gait and speech. Cranial nerves II through XII grossly intact. SKIN: Warm, dry, no laceration, no petechiae, no rashes or lesions. Course Orders Ordered: ED Orders 06/27/20 10:55 Complete Blood Count AUTO DIFF Stat Comprehensive Metabolic Panel Stat Lactate (Lactic Acid) Stat Lipase Stat Partial Thromboplastin Time Stat Prothrombin Time INR Stat Type and Screen Stat 06/27/20 12:13 CT angio chest PE protocol Stat Vital Signs Vital signs: Vital Signs - 8 hr 06/27/20 11:30 06/27/20 13:56 Pulse Rate 70 74 Respiratory Rate 21 17 Blood Pressure 124/61 131/68 Pulse Oximetry 97 97 MDM - GI Bleed Lab Data Attestation: I reviewed the patient's lab results. Result diagrams: 06/27/20 10:55 06/27/20 10:55 Labs: Lab Results 06/27/20 06/27/20 06/27/20 Range/Units 10:55 10:55 10:55 WBC 5.7 (4.5-11.0) X10^3/uL RBC 4.00 (4.0-5.2) X10^6/uL Hgb 11.1 L (12.0-16.0) g/dL Hct 33.9 L (36-46) % MCV 84.9 (80-100) fL MCH 27.9 (26-34) PG MCHC 32.8 (30-36) % RDW 14.9 H (11.6-14.8) % Plt Count 545 H (150-400) X10^3/uL Neut % (Auto) 61.6 (50-75) % Lymph % (Auto) 26.5 (25-40) % [place] % (Auto) 8.8 (3-14) % Eos % (Auto) 2.2 (2-4) % Baso % (Auto) 0.9 (0-2) % Neut # (Auto) 3500 (6722-9635) /uL Lymph # (Auto) 1500 (4215-7207) /uL [place] # (Auto) 500 (0-900) /uL Eos # (Auto) 100 (0-450) /uL Baso # (Auto) 100 (0-100) /uL PT 12.2 (10.1-12.7) SECONDS INR 1.1 (0.9-1.3) APTT 33 (26.4-36.2) SECONDS Sodium 133 L (137-145) mmol/L Potassium 3.7 (3.4-5.1) mmol/L Chloride 97 L (98-107) mmol/L Carbon Dioxide 29 (22-32) mmol/L BUN 20 H (7-17) mg/dL Creatinine 0.76 (0.52-1.04) mg/dL Estimated GFR > 60.0 (>60) mL/min BUN/Creatinine Ratio 26.3 H (6-22) Glucose 103 (80-110) mg/dL Lactate (0.7-2.1) mmol/L Calcium 9.6 (8.4-10.2) mg/dL Total Bilirubin 0.2 (0.2-1.3) mg/dL AST 24 (14-36) IU/L ALT 21 (<35) IU/L Alkaline Phosphatase 87 (38-126) U/L Total Protein 6.8 (6.3-8.2) g/dL Albumin 4.3 (3.5-5.0) g/dL Globulin 2.5 (1.7-4.1) g/dL Albumin/Globulin Ratio 1.7 (1.0-2.8) Lipase 85 (23-300) U/L Blood Type Antibody Screen 06/27/20 06/27/20 Range/Units 10:55 10:55 WBC (4.5-11.0) X10^3/uL RBC (4.0-5.2) X10^6/uL Hgb (12.0-16.0) g/dL Hct (36-46) % MCV (80-100) fL MCH (26-34) PG MCHC (30-36) % RDW (11.6-14.8) % Plt Count (150-400) X10^3/uL Neut % (Auto) (50-75) % Lymph % (Auto) (25-40) % [place] % (Auto) (3-14) % Eos % (Auto) (2-4) % Baso % (Auto) (0-2) % Neut # (Auto) (9848-9132) /uL Lymph # (Auto) (8700-2443) /uL [place] # (Auto) (0-900) /uL Eos # (Auto) (0-450) /uL Baso # (Auto) (0-100) /uL PT (10.1-12.7) SECONDS INR (0.9-1.3) APTT (26.4-36.2) SECONDS Sodium (137-145) mmol/L Potassium (3.4-5.1) mmol/L Chloride (98-107) mmol/L Carbon Dioxide (22-32) mmol/L BUN (7-17) mg/dL Creatinine (0.52-1.04) mg/dL Estimated GFR (>60) mL/min BUN/Creatinine Ratio (6-22) Glucose (80-110) mg/dL Lactate 0.9 (0.7-2.1) mmol/L Calcium (8.4-10.2) mg/dL Total Bilirubin (0.2-1.3) mg/dL AST (14-36) IU/L ALT (<35) IU/L Alkaline Phosphatase (38-126) U/L Total Protein (6.3-8.2) g/dL Albumin (3.5-5.0) g/dL Globulin (1.7-4.1) g/dL Albumin/Globulin Ratio (1.0-2.8) Lipase (23-300) U/L Blood Type A Positive Antibody Screen Negative Imaging Data CT scan - chest: Radiologist's Impression: PROCEDURE: CT ANGIO CHEST PE PROTOCOL INDICATIONS: dizziness TECHNIQUE: After the administration of intravenous contrast, 2 mm thick sections acquired from the pulmonary apices to the posterior costophrenic angles. 3-dimensional maximum intensity projection (MIP) coronal and sagittal reformats were then acquired through the thorax. For radiation dose reduction, the following was used: automated exposure control, adjustment of mA and/or kV according to patient size. COMPARISON: [facility], CT, CT ANGIO CHEST PE PROTOCOL, 06/04/2020, 18:01. FINDINGS: Image quality: Excellent. Pulmonary arteries: Pulmonary arteries demonstrate no intraluminal filling defects to suggest central pulmonary embolism. Lungs and pleura: There are bilateral scattered indistinct ground-glass opacities with a slight posterior predominance. No focal consolidation. No pleural effusions or pneumothorax. Central and peripheral airways are patent. Mediastinum: Heart size is normal, without pericardial effusion. No mediastinal or hilar adenopathy. Thoracic aorta is normal in caliber and enhancement. Esophagus is normal in caliber, without hiatal hernia. Bones and chest wall: No suspicious bony lesions. Ribs and thoracic spine appear intact throughout. No axillary or supraclavicular adenopathy. Abdomen: Visualized upper abdomen redemonstrates a cyst within the visualized right hepatic lobe. IMPRESSION: 1. No evidence of pulmonary embolism. 2. Bilateral scattered indistinct ground-glass opacities with a slight posterior predominance. The findings are nonspecific and may reflect atelectasis, mild pulmonary edema, or a mild infectious or inflammatory process. Dictated by: Eagle Valderrama M.D. on 06/27/2020 at 12:06 [facility] Narrative Medical decision making narrative: Patient does not have any stool hemoglobin hematocrit are significantly increased from previous. Initial concern with shortness of breath and dizziness for PE with recent orthopedic surgery and hospitalization. CT negative for PE. Patient is overall feeling a little bit better. At this time recommend outpatient follow-up. Discharge Plan Departure Patient Disposition: Home Clinical Impression: Worried well Instructions: Anemia Activity Restrictions/Additional Instructions: *You have been diagnosed with at this time no evidence of bleeding *What to do: At this time blood work and CT scan are overall reassuring. Recommend follow-up with her primary care provider *Continue to take medications as directed *Follow up with your primary care provider in 2-3 days *Return to ER if you should have increasing shortness of breath, dizziness, passing or any new, worsening or concerning symptoms Prescriptions: No Action triamterene-hydrochlorothiazid 37.5-25 mg capsule 1 - 2 cap PO DAILY RF: 0 gabapentin 300 mg capsule 300 mg PO 1-2XD RF: 0 multivitamin Tablet 1 tab PO DAILY RF: 0 calcium 600 mg Capsule 600 mg PO BID RF: 0 fexofenadine 180 mg Tablet 180 mg PO QPM RF: 0 acetaminophen 650 mg Tablet Extended Release 1,300 mg PO Q8H RF: 0 cholecalciferol (vitamin D3) [Vitamin D3] 25 mcg (1,000 unit) Tablet 25 mcg PO DAILY RF: 0 biotin 2,500 mcg Capsule 2,500 mcg PO BID RF: 0 docusate sodium [DOK] 100 mg Capsule 100 mg PO BID Qty: 20 RF: 0 pantoprazole 40 mg tablet,delayed release (DR/EC) 40 mg PO BID Qty: 60 RF: 0 Referrals: Kevin Mascorro MD [Primary Care Provider] -
[2020-06-27 11:06] LABS: Add Manual Diff / Slide Review NO; Basophils Absolute Auto 100 /uL (0-100); Basophils Percent Auto 0.9 % (0-2); Eosinophils Absolute Auto 100 /uL (0-450); Eosinophils Percent Auto 2.2 % (2-4); Hematocrit 33.9 % (36-46); Hemoglobin 11.1 g/dL (12.0-16.0); Lymphocytes Absolute Auto 1500 /uL (1100-4500); Lymphocytes Percent Auto 26.5 % (25-40); Mean Corpuscular HGB Conc 32.8 % (30-36); Mean Corpuscular Hemoglobin 27.9 PG (26-34); Mean Corpuscular Volume 84.9 fL (80-100); Monocytes Absolute Auto 500 /uL (0-900); Monocytes Percent Auto 8.8 % (3-14); Neutrophils Absolute Auto 3500 /uL (1500-7000); Neutrophils Percent Auto 61.6 % (50-75); Platelet Count 545 X10^3/uL (150-400); Red Cell Distribution Width 14.9 % (11.6-14.8); White Blood Cell Count 5.7 X10^3/uL (4.5-11.0)
[2020-06-27 11:18] LABS: INR 1.1 (0.9-1.3); Prothrombin Time 12.2 SECONDS (10.1-12.7)
[2020-06-27 11:21] LABS: Lactate (Lactic Acid) 0.9 mmol/L (0.7-2.1); PTT Partial Thromboplastin Tim 33 SECONDS (26.4-36.2)
[2020-06-27 11:22] LABS: Alanine Aminotransferase 21 IU/L (<35); Albumin 4.3 g/dL (3.5-5.0); Albumin Globulin Ratio 1.7 (1.0-2.8); Alkaline Phosphatase 87 U/L (38-126); Aspartate Aminotransferase 24 IU/L (14-36); BUN Creatinine Ratio 26.3 (6-22); Bilirubin Total 0.2 mg/dL (0.2-1.3); Blood Urea Nitrogen 20 mg/dL (7-17); Calcium 9.6 mg/dL (8.4-10.2); Carbon Dioxide 29 mmol/L (22-32); Chloride 97 mmol/L (98-107); Estimated Glomerular Filt Rate > 60.0 mL/min (>60); Globulin 2.5 g/dL (1.7-4.1); Glucose 103 mg/dL (80-110); HEMOLYSIS < 15 (0-50); Lipase 85 U/L (23-300); Potassium 3.7 mmol/L (3.4-5.1); Sodium 133 mmol/L (137-145); Total Protein 6.8 g/dL (6.3-8.2)
--- NOTE | 2020-06-27 12:13 | DI.CT.S_ITS ---
PROCEDURE: CT ANGIO CHEST PE PROTOCOL INDICATIONS: dizziness TECHNIQUE: After the administration of intravenous contrast, 2 mm thick sections acquired from the pulmonary apices to the posterior costophrenic angles. 3-dimensional maximum intensity projection (MIP) coronal and sagittal reformats were then acquired through the thorax. For radiation dose reduction, the following was used: automated exposure control, adjustment of mA and/or kV according to patient size. COMPARISON: [facility], CT, CT ANGIO CHEST PE PROTOCOL, 06/04/2020, 18:01. FINDINGS: Image quality: Excellent. Pulmonary arteries: Pulmonary arteries demonstrate no intraluminal filling defects to suggest central pulmonary embolism. Lungs and pleura: There are bilateral scattered indistinct ground-glass opacities with a slight posterior predominance. No focal consolidation. No pleural effusions or pneumothorax. Central and peripheral airways are patent. Mediastinum: Heart size is normal, without pericardial effusion. No mediastinal or hilar adenopathy. Thoracic aorta is normal in caliber and enhancement. Esophagus is normal in caliber, without hiatal hernia. Bones and chest wall: No suspicious bony lesions. Ribs and thoracic spine appear intact throughout. No axillary or supraclavicular adenopathy. Abdomen: Visualized upper abdomen redemonstrates a cyst within the visualized right hepatic lobe. IMPRESSION: 1. No evidence of pulmonary embolism. 2. Bilateral scattered indistinct ground-glass opacities with a slight posterior predominance. The findings are nonspecific and may reflect atelectasis, mild pulmonary edema, or a mild infectious or inflammatory process. Dictated by: Eagle Valderrama M.D. on 06/27/2020 at 12:06 Approved by: Eagle Valderrama M.D. on 06/27/2020 at 12:11
== END 2020-06-27 13:56 | disposition home or self-care (01) ==
PROVIDERS: Emergency Provider Emergency Medicine; PCP Family Medicine
DX: R42 Dizziness and giddiness (principal); R06.02 Shortness of breath
CPT/HCPCS: 36415; 71275; 80053; 83605; 83690; 85025; 85610; 85730; 86850; 86900; 86901; 99281; 99284; Q9967

== ENCOUNTER → 2020-10-04 16:44 | Outpatient (ROUT) | payer OTHER, SELFPAY ==
[2020-06-12 13:47] VITALS: BMI 28.3
[2020-10-04 17:12] LABS: COVID19 -Nasal RAPID Negative (Negative)
== END ==
PROVIDERS: PCP Family Medicine; Visit Provider Specialist
DX: Z20.822 Contact with and (suspected) exposure to COVID-19
CPT/HCPCS: 87635; C9803

== ENCOUNTER 2020-10-05 08:40 | Day surgery (SDC) | payer OTHER, SELFPAY ==
[2020-06-12 13:47] VITALS: BMI 28.3
[2020-10-05] MEDS: LACTATED RINGERS 1,000 ML 200 ML IV (09:04)
[2020-10-05 09:20] VITALS: BP 146/82; PULSE 66; RESP 14; TEMP 36.8; O2SAT 100; BMI 28.3
--- NOTE | 2020-10-05 10:35 | PM.HP.1 ---
History of Present Illness History of Present Illness Date Patient Seen: 10/05/20 Time Patient Seen: 10:00 Chief complaint: SDC Narrative: Patient is a woman who had ulcers diagnosed in June. She is here for follow-up exam to confirm healing. She has felt much better and stronger over the past few months. Patient History Medical History History of breast cancer Prehypertension Primary osteoarthritis of hands, bilateral Primary osteoarthritis of knees, bilateral Wrist fracture, left Surgical History History of arthroscopy of knee History of bilateral mastectomy (~2017) History of blepharoplasty (~2013) History of partial mastectomy of both breasts S/P tendon repair Family & Social History Family History Father Heart disease Mother Hypertension Breast cancer Brother Esophageal adenocarcinoma Social History: household members spouse Tobacco & Substance use: Tobacco type cigarettes Smoking Status Former smoker alcohol intake current alcohol intake frequency a few times a week Substance Use Type does not use Meds Home Medications and Allergies Home Medications Medication Instructions Recorded Confirmed Type acetaminophen 1,300 mg PO Q8H 05/21/20 10/05/20 History biotin 2,500 mcg PO BID 05/21/20 10/05/20 History calcium 600 mg PO BID 05/21/20 10/05/20 History cholecalciferol (vitamin D3) 25 mcg PO DAILY 05/21/20 10/05/20 History [Vitamin D3] fexofenadine 180 mg PO QPM 05/21/20 10/05/20 History multivitamin 1 tab PO DAILY 05/21/20 10/05/20 History triamterene-hydrochlorothiazid 1 - 2 cap PO DAILY 05/21/20 10/05/20 History docusate sodium [DOK] 100 mg PO BID #20 cap 05/24/20 10/05/20 Rx pantoprazole 40 mg tablet,delayed 40 mg PO BID #180 tab 07/06/20 10/05/20 Rx release Allergies Allergy/AdvReac Type Severity Reaction Status Date / Time Sulfa (Sulfonamide Allergy Severe Tongue Verified 07/06/20 14:35 Antibiotics) swelling latex Allergy Mild Rash, Verified 07/06/20 14:35 bland skin succinylcholine AdvReac Severe Muscle Verified 07/06/20 14:35 spams for 2 days Review of Systems Review of Systems ROS: Yes All systems reviewed with the patient and are negative except as otherwise documented Exam Vital Signs (past 8 hours): - 10/05/20 09:20 Temperature 98.2 F Pulse Rate 66 Respiratory Rate 14 Blood Pressure 146/82 H Pulse Oximetry 100 Oxygen Delivery Method Room Air Narrative Exam Narrative: Pleasant cooperative patient no apparent distress. Lungs are clear to auscultation. No rales or rhonchi. Heart regular rate and rhythm no murmur gallop. Abdomen is soft nontender without mass. No obvious hernias. Patient is alert and oriented x3. Assessment & Plan Assessment & Plan narrative: I talked to her about a repeat EGD. Risks of bleeding perforation were discussed. She appears to understand and wishes to proceed. Discussed sedation as well.
--- NOTE | 2020-10-05 10:37 | PM.PREOP ---
Pre-operative Note COVID-19 COVID-19 status: Negative Result date/Date tested (Pos, Neg/Pending): 10/04/20 Interval Note History & Physical reviewed/Exam performed by Physician: Yes Changes to H&P: No ASA Class (for procedural sedation): I
[2020-10-05] MEDS: LIDOCAINE 4% SOLN 50 ML 20 ML TOP (10:52)
[2020-10-05] MEDS: MIDAZOLAM 5 MG/5 ML VIAL IV (10:56)
[2020-10-05] MEDS: fentaNYL 250 MCG/5 ML INJ IV (10:56)
--- NOTE | 2020-10-05 11:01 | PM.OP.ENDO ---
Operative Date/Time/Diagnoses Date of procedure: 10/05/20 Time of procedure: 11:01 Pre-op diagnosis: History of pre-pyloric ulcer Post-op diagnosis: same (Ulcer is healed but there is still some mild inflammation.) Procedure & Clinicians Study performed: EGD Same procedure as scheduled: Yes Indications: Determine if ulcers healed Surgeon: Federico Munoz Procedure Notes SCOAP/Timeout: Performed Procedure in detail: Patient is placed left lateral decubitus position underwent IV sedation directed by the surgeon consisting of fentanyl and Versed. A bite block was inserted. The scope was advanced through it into the esophagus. The esophagus was normal. GE junction was noted to be at 38 cm from the incisors. The stomach insufflated well. There was mild inflammation in the pre-pyloric area but the ulcer had completely healed. The pyloric channel was patent. The duodenum was normal the 4th part. The scope was brought back into the stomach and retroflexed. The proximal stomach was normal in appearance. The scope was removed. Patient tolerated the procedure well. Scope withdrawal time: Not applicable Sedation minutes: 7 Findings: other findings (Mild spotty inflammation in the antrum) Specimen(s): none sent Complications: none Post-procedure Recommendations: Continue medication(s) (Continue pantoprazole but once a day) Follow up: as needed Disposition: PACU
[2020-10-05 11:09] VITALS: BP 143/71; PULSE 68; RESP 14; TEMP 36.3; O2SAT 96
[2020-10-05 11:15] VITALS: BP 141/78; PULSE 63; RESP 14; O2SAT 99
[2020-10-05 11:20] VITALS: BP 135/62; PULSE 64; RESP 14; O2SAT 99
[2020-10-05 11:24] VITALS: BP 134/78; PULSE 58; RESP 12; TEMP 36.3; O2SAT 98
[2020-10-05 11:32] VITALS: BP 131/75; PULSE 66; RESP 15; TEMP 36.3; O2SAT 97
== END 2020-10-05 11:40 | disposition home or self-care (01) ==
PROVIDERS: PCP Family Medicine; Referring Provider Specialist; Visit Provider Specialist
PROC: 0DJ08ZZ Inspection of Upper Intestinal Tract, Via Natural or Artificial Opening Endoscopic (ICD-10-PCS; CPT 43235; principal; 2020-10-05 10:00)
DX: Z87.19 Personal history of other diseases of the digestive system (principal)
CPT/HCPCS: 43235; 99152; J2250; J3010

== ENCOUNTER → 2021-07-02 12:43 | Outpatient (CLI) | payer OTHER, SELFPAY ==
[2020-06-12 13:47] VITALS: BMI 28.3
[2021-07-02 15:05] LABS: Add Manual Diff / Slide Review NO; Basophils Absolute Auto 0 /uL (0-100); Basophils Percent Auto 0.4 % (0-2); Eosinophils Absolute Auto 100 /uL (0-450); Eosinophils Percent Auto 1.1 % (2-4); Hematocrit 44.6 % (36-46); Hemoglobin 14.5 g/dL (12.0-16.0); Lymphocytes Absolute Auto 1400 /uL (1100-4500); Lymphocytes Percent Auto 26.2 % (25-40); Mean Corpuscular HGB Conc 32.4 % (30-36); Mean Corpuscular Hemoglobin 27.1 PG (26-34); Mean Corpuscular Volume 83.5 fL (80-100); Monocytes Absolute Auto 500 /uL (0-900); Monocytes Percent Auto 8.9 % (3-14); Neutrophils Absolute Auto 3400 /uL (1500-7000); Neutrophils Percent Auto 63.4 % (50-75); Platelet Count 355 X10^3/uL (150-400); Red Blood Cell Count 5.34 X10^6/uL (4.0-5.2); Red Cell Distribution Width 14.1 % (11.6-14.8); White Blood Cell Count 5.4 X10^3/uL (4.5-11.0)
[2021-07-02 15:21] LABS: BUN Creatinine Ratio 21.7 (6-22); Blood Urea Nitrogen 20 mg/dL (7-17); Calcium 9.7 mg/dL (8.4-10.2); Carbon Dioxide 33 mmol/L (22-32); Chloride 101 mmol/L (98-107); Estimated Glomerular Filt Rate 59.8 mL/min (>60); Glucose 86 mg/dL (80-110); HEMOLYSIS < 15 (0-50); Potassium 3.8 mmol/L (3.4-5.1); Sodium 138 mmol/L (137-145)
[2021-07-02 22:09] LABS: Hemoglobin A1C% w Est Avg Glu 5.7 % (4.0-6.0)
== END ==
PROVIDERS: PCP Family Medicine; Referring Provider Orthopaedic Surgery; Visit Provider Orthopaedic Surgery
DX: Z01.818 Encounter for other preprocedural examination (principal); R73.9 Hyperglycemia, unspecified; Z01.812 Encounter for preprocedural laboratory examination
CPT/HCPCS: 36415; 80048; 83036; 85025; 93005; 93010

== ENCOUNTER → 2021-07-15 13:22 | Outpatient (CLI) | payer OTHER, SELFPAY ==
[2020-06-12 13:47] VITALS: BMI 28.3
[2021-07-15 16:44] LABS: COVID19 -Nasal RAPID Negative (Negative)
== END ==
PROVIDERS: PCP Family Medicine; Visit Provider Nurse Practitioner Family
DX: Z20.822 Contact with and (suspected) exposure to COVID-19 (principal)
CPT/HCPCS: 87635; C9803

== ENCOUNTER 2021-07-17 06:07 | Day surgery (SDC) | payer OTHER, SELFPAY ==
[2020-06-12 13:47] VITALS: BMI 28.3
[2021-07-15 12:35] VITALS: BMI 29.2
[2021-07-17] VITALS (13 sets, daily range): BP systolic 122–151; BP diastolic 72–91; PULSE 65–99; RESP 12–20; TEMP 35.9–37.7; O2SAT 91–98; BMI 29.2
--- NOTE | 2021-07-17 07:11 | DI.RAD.S_ITS ---
PROCEDURE: XR KNEE LT 1TO2V INDICATIONS: Post op total knee, left knee TECHNIQUE: 2 views of the knee acquired. COMPARISON: [facility], CR, XR KNEE RT 1TO2V, 05/23/2020, 10:26. [facility], CR, XR KNEE 4+ VIEWS LEFT, 05/02/2021, 9:37. FINDINGS: Bones: Patient is status post knee joint arthroplasty. Hardware components are in expected positions. Visualized bony structures are intact. Soft tissues: Overlying postoperative changes are noted. IMPRESSION: Status post total knee arthroplasty with expected postoperative findings. Dictated by: Alfredo Batista M.D. on 07/17/2021 at 9:12 Approved by: Alfredo Batista M.D. on 07/17/2021 at 9:14
[2021-07-17] MEDS: PREGABALIN 75 MG CAPSULE PO (07:28)
[2021-07-17] MEDS: ACETAMINOPHEN 325 MG TABLET 975 MG PO (07:28)
[2021-07-17] MEDS: LACTATED RINGERS 1,000 ML 42 ML IV (07:30)
[2021-07-17] MEDS: CELECOXIB 200 MG CAPSULE PO (07:32)
--- NOTE | 2021-07-17 07:38 | PM.PREOP ---
Pre-operative Note COVID-19 COVID-19 status: Negative Result date/Date tested (Pos, Neg/Pending): 07/15/21 Interval Note History & Physical reviewed/Exam performed by Physician: Yes Changes to H&P: No
--- NOTE | 2021-07-17 07:40 | P.OP_ITS ---
Operative Date/Time/Diagnoses Date of procedure: 07/17/21 Time of procedure: 09:20 Pre-op diagnosis: Left knee osteoarthritis Post-op diagnosis: same Procedure & Clinicians Procedure: Left total knee replacement Same procedure as scheduled: Yes Indications: The patient has had progressively worsening left knee pain with radiographic changes consistent with arthritis. Non-operative management has failed and the patient has requested total knee replacement. The risks, benefits and alternatives to surgery were discussed with the patient prior to proceeding. Risks discussed included, but were not limited to, failure to relieve pain, stiffness, infection, nerve damage, deep venous thrombosis, pulmonary embolism, stroke, coma, heart attack, permanent paralysis and , as well as the potential need for eventual revision of the prosthetic. Surgeon: Daniel Prajapati Veneer Drier Feeder: Roman Ramirez Click Yes if Unassisted: No Anesthesia Type: Spinal, Sedation and Local Operative Notes Findings: Severe medial and patellofemoral osteoarthritis Closure Type: primary Specimen(s): none sent Prosthetic devices, grafts, tissues, transplants, or devices: Implants used in this procedure were manufactured by the [employer] and included the BCS II Journey total knee replacement with a size 5 left cobalt chromium femoral component, a size 4 left non porous tibial base plate, a 9 mm cross-linked polyethylene tibial insert and a 32 mm oval Fiorella II patella. Applied: implant(s) Estimated Blood Loss (mL): 25 Blood products transfused: none Tourniquet time (min): 51 Procedure in detail: The patient was seen in the pre-operative area, where the left knee was identified as the operative site and this was marked with my initials. The patient received pre-operative antibiotics, and was taken to the operating room and placed on the operative table in the supine position. After satisfactory anesthesia, a time clock inspector out was performed. The left leg was encircled with a tourniquet about the proximal thigh, and the leg was prepared from the toes to the tourniquet with ChloroPrep in the usual fashion and draped through sterile drapes. The leg was elevated and exsanguinated with Eschmark bandage and the tourniquet inflated to 250 mmHg pressure. The knee was approached through an approximately 18 cm incision centered over the patella and carried into the knee through a medial parapatellar arthrotomy. The anterior osteophytes and soft tissues were removed. The rotational landmarks of Rupali's line and the transepicondylar axis were marked on the femur with electrocautery, and intramedullary guide holes for the femur and tibia were created. The distal femoral cut was made in 6 degrees of valgus using the i ntramedullary guide at the +2 cut setting due to a flexion contracture. The proximal tibial cut was then made using the intramedullary guide, taking 9 mm of bone off the less involved side. The extension gap was checked and the rotation of the femoral component confirmed with the gap balancing blocks. The anterior, posterior and chamfer cuts were then made. The posterior osteophytes and soft tissues were then removed. The posterior capsule was injected with part of a mixture of 60 ml 0.25% Marcaine mixed with 20 ml Exparel for post-operative pain control. The remainder of this mixture was injected into the capsule and subcutaneous tissues during cement curing. The tibia was prepared with the rotation set by an extra medullary guide. Trial tibial and femoral components were then placed and the intercondylar notch cut through the femoral trial. Range of motion was 0-135 degrees, with good stability throughout the range. The patella was then cut to accommodate the patellar prosthetic. There was no need for a lateral release. The trials were then removed, and the femoral hole plugged with a bone plug. The bone was prepared with pulsatile lavage, and dried with a sponge. Cement was ap plied and the final prosthetics placed. Excess cement was removed during and after cement curing. After confirming there was no extruded cement posteriorly, the final tibial insert was placed. The knee was copiously irrigated and the tourniquet deflated. Hemostasis was obtained. The capsule was closed with interrupted # 2 polyester sutures. The subcutaneous layer was closed with 3-0 Vicryl, and the skin with a running 3-0 V-Lock suture and Dermabond. An Aquacel Ag dressing was applied and the patient was taken to recovery having tolerated the procedure well. Complications: none Post-operative Condition: stable Disposition: PACU Plan for aftercare: The patient will be maintained on a standard total knee replacement protocol with weight bearing as tolerated. The patient will receive aspirin and sequential compression devices for DVT prophylaxis. The patient will be discharged home when safe for the home environment.
[2021-07-17] MEDS: CEFAZOLIN 2 GM/20 ML SYRINGE IV (08:02)
[2021-07-17] MEDS: TRANEXAMIC ACID 1,000 MG VIAL 1000 MG INJ ×2 (08:07→09:05)
--- NOTE | 2021-07-17 08:19 | SUR.OPER ---
Supine on padded OR bed. Pillow under head, arms secured on padded armboards <90 degree abduction. Safety belt across torso. Non-operative leg secured with tape over blanket over lower leg. Operative leg secured in De[place]o positioner.
[2021-07-17] MEDS: BUPIVACAINE LIPOSOME 266 MG/20 ML VIAL INJ (08:28)
[2021-07-17] MEDS: BUPIVACAINE 0.25% (PF) 60 ML, EPINEPHrine 0.3 MG INJ (08:30)
[2021-07-17] MEDS: HYDROMORPHONE 2 MG INJ IV ×2 (09:55→10:00)
[2021-07-17] MEDS: OXYCODONE IR 5 MG TABLET PO ×3 (09:57→23:46)
--- NOTE | 2021-07-17 10:41 | PC.NURSE ---
Day shift: Pt on AC unit from PACU at approx 1030. She goes by Mihaela. She is A&Ox4. Reports left knee pain 7/ but does state that it feels better after meds in PACU. Tolerating water. VS WNL. RA 97%. CMS ok. Can move BLE's. CRYSTAL is CDI. Denies any nausea. Tolerating SCD's. Using I.S. as directed. Oriented to room and call light. Call light in reach. Agrees to not get OOB w/o help from staff.
[2021-07-17] MEDS: OXYCODONE IR 10 MG TABLET PO ×3 (11:02→16:47)
[2021-07-17] MEDS: LACTATED RINGERS 1,000 ML 100 ML IV ×2 (11:08→20:57)
[2021-07-17] MEDS: HYDROMORPHONE 0.5 MG INJ 0.2 MG IV (11:45)
[2021-07-17] MEDS: ACETAMINOPHEN 325 MG TABLET 650 MG PO ×2 (14:04→20:56)
--- NOTE | 2021-07-17 15:22 | PT.IIE ---
Current Diagnoses Unilateral primary osteoarthritis, left knee (07/17/21) Surgery Performed Operation Date: 07/17/21 07:45 Actual Procedures p Total Knee Arthroplasty(Left) - Daniel Prajapati MD Medical History (Last Reviewed 10/05/20 @ 10:36 by Federico Munoz MD) History of breast cancer Prehypertension Primary osteoarthritis of hands, bilateral Primary osteoarthritis of knees, bilateral Wrist fracture, left Physical Therapy Inpatient Evaluation/Re-Eval M1 PT/OT-IP Prior Functional Status Start: 07/17/21 17:25 Freq: NEEDED Status: Active Protocol: Document 07/17/21 15:22 AB (Rec: 07/17/21 17:35 AB [email or web address]) Medical Review Prior Functional Status Medical History Reviewed Yes Communication able to make needs known Mobility and Gait pt stated that she is independent with all mobilities and ambulation without AD Social History Household Members spouse Living Arrangements House Number of Floors (Floors) One Floor Number of Stairs To Enter/Railing? no steps to enter Home Environment Standard Height Toilet,Walk in Shower,Tub/Shower,Built-In Shower Seat Home Equipment Front Wheel Walker,Hand Held Shower,Grab Bars In Shower Additional Social History Comment has a safety frame around the toilet M2 PT-IP Current Condition Start: 07/17/21 17:25 Freq: NEEDED Status: Active Protocol: Document 07/17/21 15:22 AB (Rec: 07/17/21 17:35 AB [email or web address]) Physical Therapy Current Condition Current Condition Evaluation Date 07/17/21 Treatment Diagnosis s/p L TKA; difficulty in walking Onset Date 07/17/21 M3 PT-IP Subjective Start: 07/17/21 17:25 Freq: NEEDED Status: Active Protocol: Document 07/17/21 15:22 AB (Rec: 07/17/21 17:35 AB [email or web address]) Subjective Physical Therapy Visit Type Type Initial Evaluation Visit Start Time 15:22 Visit Stop Time 16:00 Total Visit Minutes 38 Number of VELVET STEAMER Visits 0 Physical Therapy Visit Comments Patient Comments pt is agreeable to do PT Therapy Pain Assessment Pain When Pain Assessed At Rest Pain Present Pain Present Pain Reported Location Left Knee Intensity 5 Scale Used Numeric (0 - 10) Pain Management Techniques Apply Cold,Distraction, Modification of Treatment,Re- positioning,Timing of Activity with Medications M4 PT-IP Mobility and Gait Start: 07/17/21 17:25 Freq: NEEDED Status: Active Protocol: Document 07/17/21 15:22 AB (Rec: 07/17/21 17:35 AB [email or web address]) PT-Bed Mobility Assessment Supine to Sit Supine to Sit Standby Assistance PT-Transfer Assessment Sit to and From Stand Sit to and from Stand Minimal Assistance,1 Person Assistance,Use of Upper Extremities Equipment Transfer Assistive Device Gait Belt,Front Wheeled Walker Orthotic/Prosthetic Devices or Brace: No Transfers Transfer Destination Chair Transfer Technique ambulated Transfer Ability Level of Assist Minimal Assistance,1 Person Assistance,Use of Upper Extremities Comments Mobility Comments spouse in room with pt. BP: 124/56 pt completed supine to sit SBA. able to sit on EOB SBA. c/o increase L knee pain with c/o slight nausea. BP: 138/91. completed sit to stand min A and ambulated in room ~ 20 ft using fWW. pt agreed to sit up on chair. positioned on chair. ice pack provided. call light and table place within reach. Gait Assessment Gait Gait Assistance Required: Minimum Assistance Distance (Feet) 20 Able to Maintain Weight Bearing Status Yes During Gait Assistive Devices Assistive Device Gait Belt,Front Wheeled Walker Orthotic/Prosthetic Devices or Brace: No Gait Deviations General Gait Pattern Antalgic,Decreased Stride Length,Decreased Feet Clearance,Step-to Gait Factors Limiting Gait Function Factors Limiting Gait Function Decreased Activity Tolerance, Decreased Strength,Difficulty Following Directions,Limited Range of Motion,Pain,Poor Balance,Poor Safety Awareness PT-Balance Assessment Sitting Balance and Reactions Static Sitting Balance Ability Good Dynamic Sitting Balance Ability Good Standing Balance and Reactions Static Standing Balance Ability Fair Dynamic Standing Balance Ability Fair Device Used FWW M5 PT-IP Objective Assessments Start: 07/17/21 17:25 Freq: NEEDED Status: Active Protocol: Document 07/17/21 15:22 AB (Rec: 07/17/21 17:35 AB [email or web address]) Orientation Orientation/Cognition Level of Alertness Alert Orientation Name,Place,Situation Safety Awareness Decreased Safety Awareness Memory Description Short Term Impaired Gross Range of Motion Lower Extremity ROM Assessment Left Impaired Impairments L knee flexion : ~ 40 deg Strength Lower Extremity Strength Assessment Left Impaired Hip 3+/5 Knee 3+/5 Coordination Assessment Gross Coordination Gross Coordination WNL Sensation Assessment Sensation Gross Sensation WNL Muscle Tone Muscle Tone WNL Yes M6 PT-IP Treatment Start: 07/17/21 17:25 Freq: NEEDED Status: Active Protocol: Document 07/17/21 15:22 AB (Rec: 07/17/21 17:35 AB [email or web address]) Physical Therapy Treatment Education Education Provided Precautions,Weight Bearing Status,Post-Op Packet,Safety M7 PT-IP Assessment and Plan Start: 07/17/21 17:25 Freq: NEEDED Status: Active Protocol: Document 07/17/21 15:22 AB (Rec: 07/17/21 17:35 [email or web address]) PT Summary Assessment and Plan Potential Rehabilitation Potential Good Status of Condition at Evaluation Evolving Summary Impairments Pain,ROM,Strength,Balance, Coordination,Sensation,Tone, Cognition,Bed Mobility, Transfers,Gait,Activity Tolerance Assessment Summary pt s/p L TKA and just had surgery this morning. pt with c/o increase L knee pain with mobility but ambulated min A using FWW ~ 20 ft. pt will likely progress during hospital stay and will have her spouse to assist her at home. will continue to assess progress. Goals Bed Mobility Goal Independent Transfer Goal Independent,Front Wheeled Walker Gait Goal Independent,Front Wheel Walker Gait Distance 200 Days to Meet Goals 5 Frequency of Treatment Frequency Of Treatment Twice a Day Treatment Plan Physical Therapy Treatment Plan Bed Mobility Training,Transfer Training,Gait Training, Therapeutic Exercise,Balance Retraining,Post Op Education, Discharge Planning,Hot or Cold Pack,Neuromuscular Re-ed, Coordination Retraining,Manual Therapy Weight Bearing Status Weight Bearing Status Weight Bear as Tolerated Allowed Weight Bearing Amount (enter % LLE WBAT or #) (%) Recommendations To Nursing Amount of Assist Needed 1 Person Assist Discharge Recommendations PT Discharge Recommendations Home with Assistance, Outpatient PT Transportation Needs at Discharge Private Vehicle
[2021-07-17] MEDS: GABAPENTIN 300 MG CAPSULE PO (20:56)
[2021-07-17] MEDS: ASPIRIN EC 81 MG TABLET PO (20:56)
[2021-07-17] MEDS: PANTOPRAZOLE DR 40 MG TABLET PO (20:56)
[2021-07-17] MEDS: DOCUSATE 100 MG CAPSULE PO (20:56)
--- NOTE | 2021-07-17 22:53 | PC.NURSE ---
Patient is alert and oriented. Breath sounds CTA with RA sat of 98%. HRR. BP elevated at 147/76. BT hypoactive but states she is passing flatus. Voiding on toilet; denied dysuria, frequency or urgency. Able to move herself in bed. Up to bathroom with walker and SBA; does need help to lift left leg when getting into bed. Aquacel dressing to left knee covered with eric is CDI. Did complain of 5/10 pain when up to bathroom and was medicated with oxycodone at 1950, and scheduled Tylenol and is currently asleep; did have ice pack to knee as well. CMS is intact except has difficulty lifting left leg off bed. Wearing bilateral calf SCD's. Fall risk score is moderate but patient calls appropriately for assistance.
[2021-07-18 00:33] VITALS: BP 143/72; PULSE 75; RESP 17; TEMP 37.4; O2SAT 99
[2021-07-18] MEDS: OXYCODONE IR 5 MG TABLET PO ×2 (04:24→08:07)
[2021-07-18 04:46] VITALS: BP 125/80; PULSE 82; RESP 16; TEMP 36.9; O2SAT 96
[2021-07-18 06:53] LABS: Hematocrit 35.7 % (36-46); Hemoglobin 12.2 g/dL (12.0-16.0)
--- NOTE | 2021-07-18 07:05 | PM.DS.1 ---
History of Present Illness History of Present Illness Date Patient Seen: 07/18/21 Time Patient Seen: 08:20 Chief complaint: OPB Narrative: Operative Date/Time/Diagnoses Date of procedure: 07/17/21 Time of procedure: 09:20 Pre-op diagnosis: Left knee osteoarthritis Post-op diagnosis: same Procedure & Clinicians Procedure: Left total knee replacement Same procedure as scheduled: Yes Indications: The patient has had progressively worsening left knee pain with radiographic changes consistent with arthritis. Non-operative management has failed and the patient has requested total knee replacement. The risks, benefits and alternatives to surgery were discussed with the patient prior to proceeding. Risks discussed included, but were not limited to, failure to relieve pain, stiffness, infection, nerve damage, deep venous thrombosis, pulmonary embolism, stroke, coma, heart attack, permanent paralysis and , as well as the potential need for eventual revision of the prosthetic. Surgeon: Daniel Prajapati Technician Inventory Specialist: Roman Ramirez Click Yes if Unassisted: No Anesthesia Type: Spinal, Sedation and Local Operative Notes Findings: Severe medial and patellofemoral osteoarthritis Closure Type: primary Specimen(s): none sent Prosthetic devices, grafts, tissues, transplants, or devices: Implants used in this procedure were manufactured by the [employer] and included the BCS II Journey total knee replacement with a size 5 left cobalt chromium femoral component, a size 4 left non porous tibial base plate, a 9 mm cross-linked polyethylene tibial insert and a 32 mm oval Fiorella II patella. Applied: implant(s) Estimated Blood Loss (mL): 25 Blood products transfused: none Tourniquet time (min): 51 Discharge Providers Provider Discharge Date: 07/18/21 Primary care physician: Kevin Mascorro MD Consults: 07/17/21 10:29 Consult to Discharge Planning Routine Comment: Consult to Physical Therapy Evaluate & Treat Comment: Physician Instructions: postop TKA protocol Discharge provider: Rosemarie Govea PA-C Summary Hospital Course Discharge Diagnosis: s/p left TKA Hospital Course: Ms Vincent's hospital course was unremarkable. On POD# 1 she was feeling well and wanted to go home. She was evaluated by PT and felt to be safe for discharge home with her . She was eating and voiding without problems. Her pain was well-controlled with oral medications. Exam Vital Signs (past 8 hours): - 07/18/21 00:33 07/18/21 04:46 Temperature 99.3 F 98.4 F Pulse Rate 75 82 Respiratory Rate 17 16 Blood Pressure 143/72 H 125/80 Pulse Oximetry 99 96 Oxygen Delivery Method Room Air Oxygen Flow Rate 0 Narrative Exam Narrative: 5/5 strength in hip flexors, quadriceps, hamstrings, DF, PF, EHL bilaterally. Sensation to light touch intact throughout BLE. Calves soft, compressible, nontender and without palpable cords or masses. Const General: cooperative and healthy appearing Orientation: alert, awake and oriented x3 Objective Labs Result Diagrams: 07/18/21 06:21 Labs: Laboratory Results - last 24 hr 07/18/21 06:21 Hgb 12.2 Hct 35.7 L PFSH Medical History (Updated 10/05/20 @ 11:07 by Federico Munoz MD) History of breast cancer Prehypertension Primary osteoarthritis of hands, bilateral Primary osteoarthritis of knees, bilateral Wrist fracture, left Surgical History (Updated 07/18/21 @ 08:15 by Rosemarie Govea PA-C) History of arthroplasty of right knee (05/23/20) History of arthroscopy of knee History of bilateral mastectomy (~2017) History of blepharoplasty (~2013) History of partial mastectomy of both breasts S/P tendon repair Family History Father Heart disease Mother Hypertension Breast cancer Brother Esophageal adenocarcinoma Social History household members: spouse Smoking Status: Former smoker alcohol intake: current Discharge Assessment & Plan Assessment and Plan Assessment: POD# 1 s/p LEFT total knee arthroplasty Plan of Treatment: Discharge home, multimodal pain control, ASA 81 mg BID x 6 weeks for VTE prophylaxis Discharge Plan Discharge Plan Patient Disposition: Home Discharge orders & Medications Discharge Orders: Discharge (Order); Ordered 07/18/21 Ordered By: Rosemarie Govea Prescriptions: New aspirin 81 mg Tablet,Delayed Release (Dr/Ec) 81 mg PO BID Qty: 1 0RF oxycodone 5 mg Tablet 5 mg PO Q4H PRN (Reason: pain, severe) Qty: 60 0RF docusate sodium 100 mg Capsule 100 mg PO BID PRN (Reason: constipation) Qty: 60 1RF Continued triamterene-hydrochlorothiazid 37.5-25 mg capsule 1 - 2 cap PO DAILY 0RF multivitamin Tablet 1 tab PO DAILY 0RF calcium 600 mg Capsule 600 mg PO BID 0RF fexofenadine 180 mg Tablet 180 mg PO QPM 0RF acetaminophen 650 mg Tablet Extended Release 1,300 mg PO Q8H 0RF Label Comments: Pt has been using q6h for pain control cholecalciferol (vitamin D3) [Vitamin D3] 25 mcg (1,000 unit) Tablet 25 mcg PO DAILY 0RF biotin 2,500 mcg Capsule 2,500 mcg PO BID 0RF pantoprazole 40 mg tablet,delayed release (DR/EC) 40 mg PO DAILY Qty: 90 1RF gabapentin 300 mg capsule 300 mg PO DAILY 0RF Follow up/Referrals: Kevin Mascorro MD [Primary Care Provider] - Daniel Prajapati MD [Physician] - As previously scheduled (Follow up with Lauren Munoz PA-C on 07/31/2021 @ 3:40 pm at [facility] office in [place].) Diet/Activity/Treatments Diet: Diet as Tolerated Activity: Walk frequently! Cold/Heat Therapy: Ice to knee as needed for pain. Skin/Wound/Dressing Care Report to your healthcare provider any signs of infection, such as:: chills, fever, night sweats, unusual drainage and unusual redness Dressing: May remove CRYSTAL wrap and shower. Leave Aquacel dressing in place until follow up appointment. No bathing or otherwise soaking incision. Visit Report/Discharge Packet Instructions: DI for Knee Replacement Stand Alone Forms: Surgery Discharge Discharge Data Primary Care Provider: Kevin Mascorro Attending Provider: Daniel Prajapati
[2021-07-18] MEDS: DOCUSATE 100 MG CAPSULE PO (08:07)
[2021-07-18] MEDS: ASPIRIN EC 81 MG TABLET PO (08:07)
[2021-07-18] MEDS: ACETAMINOPHEN 325 MG TABLET 650 MG PO (08:07)
[2021-07-18] MEDS: PANTOPRAZOLE DR 40 MG TABLET PO (08:07)
[2021-07-18] MEDS: TRIAMTERENE/HCTZ 37.5/25 CAPSULE 1 CAP PO (08:07)
[2021-07-18 08:35] VITALS: BP 127/66; PULSE 95; RESP 18; TEMP 36.6; O2SAT 95
--- NOTE | 2021-07-18 11:28 | PT.IPTN ---
Current Diagnoses Unilateral primary osteoarthritis, left knee (07/17/21) Presence of left artificial knee joint (07/17/21) Surgery Performed Operation Date: 07/17/21 07:45 Actual Procedures p Total Knee Arthroplasty(Left) - Daniel Prajapati MD Physical Therapy Treatment Note M2 PT-IP Current Condition Start: 07/17/21 17:25 Freq: NEEDED Status: Discharge Protocol: Document 07/17/21 15:22 AB (Rec: 07/17/21 17:35 AB [email or web address]) Physical Therapy Current Condition Current Condition Evaluation Date 07/17/21 Treatment Diagnosis s/p L TKA; difficulty in walking Onset Date 07/17/21 M3 PT-IP Subjective Start: 07/17/21 17:25 Freq: NEEDED Status: Discharge Protocol: Document 07/18/21 11:05 KS (Rec: 07/18/21 13:54 KS [id number]) Subjective Physical Therapy Visit Type Type Treatment Note Visit Start Time 11:05 Visit Stop Time 11:28 Total Visit Minutes 23 Number of WAFER SUBSTRATE TESTER Visits 1 Physical Therapy Visit Comments Patient Comments pt is agreeable to do PT Therapy Pain Assessment Pain When Pain Assessed At Rest Pain Present Pain Present Pain Reported Location Left Knee Intensity 4 Scale Used Numeric (0 - 10) Pain Management Techniques Elevation,Re-positioning, Timing of Activity with Medications M4 PT-IP Mobility and Gait Start: 07/17/21 17:25 Freq: NEEDED Status: Discharge Protocol: Document 07/18/21 11:05 KS (Rec: 07/18/21 13:54 KS [id number]) PT-Bed Mobility Assessment Supine to Sit Supine to Sit Standby Assistance Scooting Scooting to Edge of Bed Standby Assistance PT-Transfer Assessment Sit to and From Stand Sit to and from Stand Contact Guard Assistance,1 Person Assistance,Use of Upper Extremities Equipment Transfer Assistive Device Gait Belt,Front Wheeled Walker Orthotic/Prosthetic Devices or Brace: No Transfers Transfer Destination Chair,Toilet Transfer Technique ambulated w/ FWW Transfer Ability Level of Assist Standby Assistance,Contact Guard Assistance,1 Person Assistance,Use of Upper Extremities Comments Mobility Comments Pt in bed upon arrival w/ spouse in room. SBA for sup<> sit and scooting EOB. Demonstrated gait belt application to pts spouse who verbalized understanding. Pt sit<>stand w/ FWW CGA and ambulated ~30 ft in room prior to going to bathroom independently using hand rails . After voiding, pt ambulated additional 70 [address] in hallway SBA w/ step thru pattern. Pt returned to room and chair SBA . Gait Assessment Gait Gait Assistance Required: Standby Assistance,Contact Guard Assist,1 Person Assist Distance (Feet) 100 Able to Maintain Weight Bearing Status Yes During Gait Assistive Devices Assistive Device Gait Belt,Front Wheeled Walker Orthotic/Prosthetic Devices or Brace: No Gait Deviations General Gait Pattern Antalgic,Decreased Stride Length,Decreased Feet Clearance,Step-to Gait Factors Limiting Gait Function Factors Limiting Gait Function Decreased Activity Tolerance, Decreased Strength,Difficulty Following Directions,Limited Range of Motion,Pain,Poor Balance,Poor Safety Awareness Comments Gait Comments Please refer to mobility section for details. Stair Climbing Assessment Comments Stair Climbing Comments No steps at home. PT-Balance Assessment Sitting Balance and Reactions Static Sitting Balance Ability Good Dynamic Sitting Balance Ability Good Standing Balance and Reactions Static Standing Balance Ability Good Dynamic Standing Balance Ability Normal Device Used FWW M5 PT-IP Objective Assessments Start: 07/17/21 17:25 Freq: NEEDED Status: Discharge Protocol: Document 07/17/21 15:22 AB (Rec: 07/17/21 17:35 AB [email or web address]) Orientation Orientation/Cognition Level of Alertness Alert Orientation Name,Place,Situation Safety Awareness Decreased Safety Awareness Memory Description Short Term Impaired Gross Range of Motion Lower Extremity ROM Assessment Left Impaired Impairments L knee flexion : ~ 40 deg Strength Lower Extremity Strength Assessment Left Impaired Hip 3+/5 Knee 3+/5 Coordination Assessment Gross Coordination Gross Coordination WNL Sensation Assessment Sensation Gross Sensation WNL Muscle Tone Muscle Tone WNL Yes M6 PT-IP Treatment Start: 07/17/21 17:25 Freq: NEEDED Status: Discharge Protocol: Document 07/18/21 11:05 KS (Rec: 07/18/21 13:54 [place] [id number]) Physical Therapy Treatment Exercises Exercises Ankle Pumps,Quad Sets,Heel Slides Education Education Provided Precautions,Weight Bearing Status,Post-Op Packet,Safety M7 PT-IP Assessment and Plan Start: 07/17/21 17:25 Freq: NEEDED Status: Discharge Protocol: Document 07/18/21 11:05 KS (Rec: 07/18/21 13:54 KS [id number]) PT Summary Assessment and Plan Potential Rehabilitation Potential Good Status of Condition at Evaluation Evolving Summary Impairments Pain,ROM,Strength,Balance, Coordination,Sensation,Tone, Cognition,Bed Mobility, Transfers,Gait,Activity Tolerance Assessment Summary Pt SBA to CGA throughout treatment today. Able to ambulate 100 ft and use bathroom independently. Pt has no stairs to enter home and has outpatient therapy set to begin on Thursday. Pt and spouse feel safe to return home. Goals Bed Mobility Goal Independent Transfer Goal Independent,Front Wheeled Walker Gait Goal Independent,Front Wheel Walker Gait Distance 200 Days to Meet Goals 5 Frequency of Treatment Frequency Of Treatment Twice a Day Treatment Plan Physical Therapy Treatment Plan Bed Mobility Training,Transfer Training,Gait Training, Therapeutic Exercise,Balance Retraining,Post Op Education, Discharge Planning,Hot or Cold Pack,Neuromuscular Re-ed, Coordination Retraining,Manual Therapy Weight Bearing Status Weight Bearing Status Weight Bear as Tolerated Allowed Weight Bearing Amount (enter % LLE WBAT or #) (%) Recommendations To Nursing Amount of Assist Needed 1 Person Assist Discharge Recommendations PT Discharge Recommendations Home with Assistance, Outpatient PT Transportation Needs at Discharge Private Vehicle
--- NOTE | 2021-07-18 11:53 | CM.IDA ---
Initial DCP Assessment Note Pt is a 71 yo female, resident of [place], now POD#1 from Left knee surgery by Dr rPajapati PCP: Kevin Mascorro Payer: Hunter SMITH Reviewed chart, pt discussed in multidisciplinary rounds this morning. Therapy has cleared pt for return home w/family to assist and pt has planned for home, DC order from Ortho has already been initiated this morning. No needs expected from DC planning team although will remain available in case this changes today. RADHA Vazquez Discharge Planning/Care Management CM Discharge Assessment Start: 07/18/21 11:50 Freq: Status: Active Protocol: Document 07/18/21 11:50 GINO (Rec: 07/18/21 11:53 GINO [id number]) Discharge Planning Assessment Assigned [employer] Keeper RADHA Moscoso DPOA/Assigned Designee Name Sony Vincent, spouse Contact Information [phone] cell Advance Directives? Yes Advance Directives on File No History Provided By Patient,Medical Record Prior Living Arrangements House Household Members spouse Type of transporation used prior to Drives own vehicle admit Independent with ADL's Yes Is patient alert and oriented? Yes Caregiver for Another No Patient/Family Preference OP PT Therapy Barriers to Discharge No Discharge Plan Home Transportation Arrangement Referrals Initiated None needed
[2021-07-18] MEDS: OXYCODONE IR 10 MG TABLET PO (12:20)
== END 2021-07-18 12:47 | disposition home or self-care (01) ==
LOC: OR 06:10 → AC 06:10
PROVIDERS: PCP Family Medicine; Referring Provider Orthopaedic Surgery; Visit Provider Orthopaedic Surgery
PROC: 0SRD0JZ Replacement of Left Knee Joint with Synthetic Substitute, Open Approach (ICD-10-PCS; CPT 27447; principal; 2021-07-17 07:45)
DX: M17.12 Unilateral primary osteoarthritis, left knee (principal); I10 Essential (primary) hypertension; K21.9 Gastro-esophageal reflux disease without esophagitis
CPT/HCPCS: 27447; 36415; 73560; 85014; 85018; 97116; 97162; 97530; C1776; C1713; C9290; J0171; J0690; J1100; J1170; J2250; J2405; J2704; J3010

== ENCOUNTER → 2022-02-04 10:19 | Outpatient (CLI) | payer OTHER, SELFPAY ==
[2021-07-17 11:32] VITALS: BMI 29.2
[2022-02-04 13:06] LABS: COVID19 -Nasal RAPID Negative (Negative)
== END ==
PROVIDERS: PCP Family Medicine; Visit Provider Surgery
DX: Z20.822 Contact with and (suspected) exposure to COVID-19 (principal); Z01.812 Encounter for preprocedural laboratory examination
CPT/HCPCS: 87635; C9803

== ENCOUNTER 2022-02-05 07:16 | Day surgery (SDC) | payer OTHER, SELFPAY ==
[2021-07-17 11:32] VITALS: BMI 29.2
--- NOTE | 2022-02-05 | PATH_ITS ---
[facility] Accession Number: [id number] . 01 Material submitted: . PART A: duodenum - DUODENUM PART B: stomach - ANTRUM PART C: gastrointestinal site - GASTRIC POLYPS X2 PART D: cecum - CECAL COLON POLYPS X3 PART E: colon - RANDOM COLON ASCENDING . 01 Diagnosis: A. Duodenum, Biopsy: Duodenal mucosa with no diagnostic abnormality. Negative for active inflammation, features of sprue, dysplasia, or malignancy. . B. Stomach, Antrum, Biopsy: Antral mucosa with mild chronic gastritis. Negative for Helicobacter by immunohistochemistry. Negative for intestinal metaplasia. Negative for dysplasia and malignancy. . C. Stomach, Polyps x2, Biopsies: Fundic gland polyps, two fragments. No evidence of Helicobacter on H/E stain. Negative for intestinal metaplasia. Negative for dysplasia and malignancy. . D. Cecum, Polyps x3, Biopsies: Tubular adenoma, two fragments. . E. Random Colon, Ascending, Biopsies: Colonic mucosa with no diagnostic abnormality. Negative for active, chronic, and microscopic colitis. Negative for dysplasia and malignancy. MRV 02/11/2022 1751 Local . 01 Electronically signed: . Elle Cruz MD, Pathologist NPI- [id number] . 01 Gross description: . Part A: DUODENUM: Received in formalin are 4 fragment(s) of echeverria, soft tissue measuring 0.1 x 0.1 x 0.1 cm to 0.3 x 0.3 x 0.2 cm submitted entirely in 1 cassette(s) Part B: ANTRUM: Received in formalin are 2 fragment(s) of echeverria, soft tissue measuring 0.1 x 0.1 x 0.1 cm to 0.3 x 0.2 x 0.2 cm submitted entirely in 1 cassette(s) Part C: GASTRIC POLYPS X2: Received in formalin are 2 fragment(s) of echeverria, soft tissue measuring 0.2 x 0.2 x 0.2 cm to 0.3 x 0.2 x 0.2 cm submitted entirely in 1 cassette(s) Part D: CECAL COLON POLYPS X3: Received in formalin are 2 fragment(s) of echeverria, soft tissue measuring 0.1 x 0.1 x 0.1 cm to 0.2 x 0.2 x 0.2 cm submitted entirely in 1 cassette(s) Part E: RANDOM COLON ASCENDING: Received in formalin are 3 fragment(s) of echeverria, soft tissue measuring 0.1 x 0.1 x 0.1 cm to 0.2 x 0.2 x 0.2 cm submitted entirely in 1 cassette(s) /BONNIE 02/06/2022 2222 Local . 01 Microscopic: . B. An immunohistochemical stain was performed to evaluate for Helicobacter organisms and is negative. The control stain showed appropriate reactivity. . * This test was developed and its performance characteristics determined by [facility]. It has not been cleared or approved by the U.S. Food and Drug Administration. The FDA has determined that such clearance or approval is not necessary. This test is used for clinical purposes. It should not be regarded as investigational or for research. . 01 Pathologist provided ICD-10: D12.0, R19.7 . 01 CPT . 739591, 029219, [id number], [id number], [id number], [id number] Specimen Comment: A courtesy copy of this report has been sent to [phone] Performed at: 01 [facility] [address] [place] [address] [facility] [place], [place], [place] [id number] MD Eagle Glaser MD Phone: [phone]
[2022-02-05] MEDS: LACTATED RINGERS 1,000 ML 42 ML IV (07:30)
[2022-02-05 07:33] VITALS: BP 126/79; PULSE 69; RESP 15; TEMP 37; O2SAT 97; BMI 28.3
--- NOTE | 2022-02-05 08:00 | PM.HP.1 ---
History of Present Illness History of Present Illness Date Patient Seen: 02/05/22 Time Patient Seen: 08:00 Chief complaint: SDC Narrative: I reviewed my office note. No significant changes. With discontinuation of pantoprazole there has been a 50% improvement overall. Patient History Medical History History of breast cancer Prehypertension Primary osteoarthritis of hands, bilateral Primary osteoarthritis of knees, bilateral Wrist fracture, left Surgical History History of arthroplasty of right knee (05/23/20) History of arthroscopy of knee History of bilateral mastectomy (~2017) History of blepharoplasty (~2013) History of partial mastectomy of both breasts S/P tendon repair Family & Social History Family History Father Heart disease Mother Hypertension Breast cancer Brother Esophageal adenocarcinoma Social History: household members spouse Tobacco & Substance use: Tobacco type cigarettes Smoking Status Former smoker alcohol intake current alcohol intake frequency a few times a week Substance Use Type does not use Meds Home Medications and Allergies Home Medications Medication Instructions Recorded Confirmed Type acetaminophen 650 mg 1,300 mg PO Q8H 05/21/20 02/05/22 History tablet,extended release biotin 2,500 mcg capsule 2,500 mcg PO BID 05/21/20 02/05/22 History calcium 600 mg capsule 600 mg PO BID 05/21/20 02/05/22 History cholecalciferol (vitamin D3) 25 25 mcg PO DAILY 05/21/20 02/05/22 History mcg (1,000 unit) tablet (Vitamin D3) multivitamin 1 tab PO DAILY 05/21/20 02/05/22 History triamterene 37.5 1 - 2 cap PO DAILY 05/21/20 02/05/22 History mg-hydrochlorothiazide 25 mg capsule gabapentin 300 mg capsule 300 mg PO DAILY 07/17/21 02/05/22 History docusate sodium 100 mg capsule 100 mg PO BID PRN constipation #60 07/18/21 02/05/22 Rx caps Allergies Allergy/AdvReac Type Severity Reaction Status Date / Time Sulfa (Sulfonamide Allergy Severe Tongue Verified 02/05/22 07:47 Antibiotics) swelling latex Allergy Mild Rash, Verified 02/05/22 07:47 bland skin morphine AdvReac Severe Vomiting Verified 02/05/22 07:47 succinylcholine AdvReac Severe Extreme Verified 02/05/22 07:47 muscle cramping, unable to walk Review of Systems Review of Systems ROS: Yes All systems reviewed with the patient and are negative except as otherwise documented Exam Vital Signs (past 8 hours): - 02/05/22 07:33 Temperature 98.6 F Pulse Rate 69 Respiratory Rate 15 Blood Pressure 126/79 Pulse Oximetry 97 Oxygen Delivery Method Room Air Oxygen Delivery Method Room Air Const General: cooperative HENMT Head: normal to inspection Eyes General: appearance normal, both eyes and all related structures Neck Neck: normal visual inspection Chest Chest: normal inspection of the chest Resp Effort & Inspection: normal respiratory effort Cardio Rate: regular rate GI Inspection: normal to inspection Skin General: no rashes or lesions noted Neuro General: patient alert and patient awake Extrem General: normal to inspection and no pedal edema Psych Appearance: grossly normal Assessment & Plan Assessment & Plan narrative: 72-year-old female with chronic diarrhea. EGD and colonoscopy are pursued today. Time Spent With Patient Critical Care time: I spent a total of [] minutes of critical care time on this patient's care today; this time is exclusive of procedural time.
--- NOTE | 2022-02-05 08:02 | PM.PREOP ---
Pre-operative Note COVID-19 COVID-19 status: Negative Result date/Date tested (Pos, Neg/Pending): 02/04/22 Criteria for continued procedure: Possibility delay results in more complex future surgery or treatment Interval Note History & Physical reviewed/Exam performed by Physician: Yes Changes to H&P: Yes ASA Class (for procedural sedation): II
--- NOTE | 2022-02-05 09:09 | P.OP.EGD&C_ITS ---
Operative Date/Time/Diagnoses Date of procedure: 02/05/22 Time of procedure: 09:09 Pre-op diagnosis: Chronic diarrhea Post-op diagnosis: same Procedure & Clinicians Study performed: EGD with biopsies and colonoscopy with biopsies and cold forceps polypectomy Same procedure as scheduled: Yes Indications: Chronic diarrhea Surgeon: Milo Tim Procedure Notes SCOAP/Timeout: Done Procedure in detail: After the risks and benefits were explained, written and verbal informed consent was obtained. The patient was brought into the procedure room and placed into the left lateral decubitus position. Please see nurse tier truck driver notes for sedation details. The scope was introduced into the mouth through the bite block and advanced under direct visualization to the 2nd portion of the duodenum. The scope was slowly withdrawn carefully examining the mucosa for any defects or lesions. Retroflexed views were accomplished in the stomach. The stomach was decompressed, the scope was then removed from the patient who tolerated the procedure well. The patient was then turned around and a digital rectal examination was accomplished. The the scope was introduced into the rectum and advanced to the cecum as identified by the appendiceal orifice ileocecal valve. The terminal ileum was interrogated. The scope was then slowly withdrawn to carefully examine the mucosa for any defects or lesions. Multiple direct views were made through the dentate line for exclusion of pathology. The colon was decompressed. The scope was removed from the patient who tolerated the procedure well. Pediatric colonoscope Bowel prep adequate Scope withdrawal time: 11 minutes Sedation minutes: 29 Complications: none Impression: 1. Duodenum: This was visually normal from the bulb through to the 2nd portion. Random D2 biopsies were taken for exclusion of sprue. 2. Stomach: The patient had some patchy erythematous slightly eroded mucosa in the antrum. These areas were targeted for histopathology and exclusion of H pylori. No ulcers no outlet obstruction no mass lesions detected. In the more proximal stomach there were a few scattered benign small polyps. A couple of these were sampled for histopathology. Otherwise retroflexed views of the LES were unremarkable. 3. Esophagus: The GE junction was at about 38 cm from the incisors. The Z-line correlated well with the GE junction but there was evidence of LA grade A erosive esophagitis. The remainder of the esophagus was unremarkable. 4. Terminal ileum: This appeared visually normal. 5. Colon: No evidence of macroscopic colitis. Random colon biopsies were taken for microscopic colitis exclusion. In the right colon there were a few very diminutive polyps removed with cold forceps. Two of these were in the cecum and 1 was in the ascending colon. Mild grade 2 hemorrhoids were detected on digital rectal exam and direct endoscopic views. Patient had some perianal erythema consistent with irritation from the bowel prep [employer] [employer] 1. Gastropathy 2. LA grade A esophagitis 3. Gastric polyps 4. Hemorrhoids 5. Colon polyps x 3 Post-procedure Plan for aftercare: 1. Await histology. 2. Repeat colonoscopy 3 years 3. Resume proton pump inhibitor therapy with [id number] omeprazole once daily. 4. An [id number] barrier cream for the next few days will help with the perianal erythema. Disposition: PACU
[2022-02-05 09:11] VITALS: BP 133/79; PULSE 74; RESP 18; TEMP 36.8; O2SAT 95
[2022-02-05 09:15] VITALS: BP 140/77; PULSE 67; RESP 18; O2SAT 95
[2022-02-05 09:20] VITALS: BP 133/97; PULSE 63; RESP 16; TEMP 36.7; O2SAT 100
[2022-02-05 09:21] VITALS: BP 136/79; PULSE 67; RESP 18; TEMP 36.7; O2SAT 95
[2022-02-05 09:40] VITALS: BP 127/82; PULSE 65; RESP 18; O2SAT 93
--- NOTE | 2022-02-05 09:48 | SUR.PHASEII ---
pt given detailed discharge instructions . Pt states she understands discharge instructions. Pt denies any complaints and drinking angel [place]rett.
== END 2022-02-05 09:58 | disposition home or self-care (01) ==
PROVIDERS: PCP Family Medicine; Referring Provider Internal Medicine Gastroenterology; Visit Provider Internal Medicine Gastroenterology
PROC: 0DJ08ZZ Inspection of Upper Intestinal Tract, Via Natural or Artificial Opening Endoscopic (ICD-10-PCS; CPT 43235; principal; 2022-02-05 08:30)
PROC: 0DJD8ZZ Inspection of Lower Intestinal Tract, Via Natural or Artificial Opening Endoscopic (ICD-10-PCS; CPT 45378; 2022-02-05 08:30)
DX: K52.9 Noninfective gastroenteritis and colitis, unspecified (principal); I10 Essential (primary) hypertension; Z86.010 Personal history of colon polyps; K64.1 Second degree hemorrhoids; K20.80 Other esophagitis without bleeding; K31.9 Disease of stomach and duodenum, unspecified; K31.7 Polyp of stomach and duodenum; K29.50 Unspecified chronic gastritis without bleeding; D12.0 Benign neoplasm of cecum
CPT/HCPCS: 45380; 43239; J2704